=== PATIENT | female | born 1950 | race Caucasian/White ===

== ENCOUNTER 2017-02-18 13:47 | Emergency (ER) | payer OTHER ==
[~2017-02-18] VITALS: Ht 160 cm; Wt 96.5 kg
[~2017-02-18 13:47] MED LIST changes: -APIX1TAB3 PO; -LOSA1TAB PO; -OMEG10007 PO; -OMEP40CA41 PO; -RIVA1TAB4 PO
[2017-02-18 13:51] VITALS: TEMP 36.5; Ht 160 cm; Wt 96.5 kg
--- NOTE | 2017-02-18 14:47 | EMERGENCY ROOM VISIT NOTE ---
History First contact with patient: 14:39 Chief Complaint: LEG PAIN,LEG INJURY Stated Complaint: LEFT LEG PAIN, SWELLING-SENT FROM ULTRASOUND History of Present Illness The patient is a 67 year old female who presents to the Emergency Room with complaints of 2 day history of leg swelling,referred by PCP Dr. Rodas for confirmed DVT on U/S doppler Has chronic low leg pain but ~2 days ago, developed acute left leg pain felt anteriorly from knee down to the big toe. The pain woke her from sleep. Associated with swelling. No recent leg trauma, and patient is otherwise able to ambulate but she does not take stairs because of pain. No history of blood clots. No family history of cancer, only has family cardiac disease Never smoked, no estrogen use, no long commute, no recent surgery/prolonged immobilization SOB chronic (unsure of cause), not worsened recently. No CP. Some orthopnea, declines PND. No abdo pain, no N/V Does have some mylagia UTI sx: frequency, urgency, no dysuria, no hematuria No changes in BM No fever, known GERD Previously on Coumadin, transitioned to Xarelto (for unknown reason), tolerated it badly. Refuses to go back on Xarelto. Review of Systems See HPI for pertinent positives and negatives. A total of ten systems were reviewed and were otherwise negative. Past Medical/Surgical History Medical Problems: (1) Pulmonary hypertension Social History Smoking Status: Never Smoker Smokeless Tobacco Use: No Alcohol Use: none Drug Use: none Marital Status: Housing Status: lives with family Occupation Status: employed Current/Historical Medications Scheduled Aspirin (Aspirin), 325 MG PO DAILY Cholecalciferol (Vitamin D 1000 Unit), 1,000 INTER.UNIT PO DAILY Cyanocobalamin (Vitamin B-12), 1,000 MCG PO DAILY Diltiazem Hcl Ext Rel (Tiazac), 240 MG PO DAILY Fish Oil ([place]-3), 1 CAP PO DAILY Losartan Potassium (Losartan Potassium), 25 MG PO DAILY Rivaroxaban (Xarelto), 15 MG PO BID Miscellaneous Medications Hydrochlorothiazide (Hctz), 6.25 MG PO Physical Exam Vital Signs Date Time Temp Pulse Resp B/P (MAP) Pulse Ox O2 Delivery O2 Flow Rate FiO2 02/18/17 19:03 74 20 166/80 96 02/18/17 17:30 71 18 97/53 95 Room Air 8/8/17 15:44 65 15 147/85 97 Room Air 02/18/17 13:51 36.5 79 20 134/75 94 Physical Exam GENERAL: Alert, well nourished, lying in bed, no acute distress, non-toxic HEAD: NC/AT. No sinus tenderness. EYES: PERRL, EOMI, normal conjunctiva OROPHARYNX: no exudate, no erythema, lips, buccal mucosa, and tongue normal and mucous membranes are dry NECK: Supple, no nuchal rigidity, no adenopathy, non-tender LUNGS: Clear to auscultation, but poor inspiratory effort. No crepitations, crackles, or wheezes HEART:S1 and S2 normal, irregularly irregular, but rate controlled. CHEST: No reproducible tenderness. ABDOMEN: abdomen soft, non-tender, normo-active bowel sounds, no masses, no rebound or guarding. BACK: Back is symmetrical on inspection, no deformities, no midline tenderness, no CVA tenderness. SKIN: Warm, pink, dry. No erythema, rashes, or bruising. UPPER EXTREMITIES: Grossly normal. Strength 5/5 LOWER EXTREMITIES: No pitting edema. Tender leg on left diffusely. Strength 5/5 bilaterally. NEURO: Alert, Ox3. No focal deficits. Normal sensorium, cranial nerves II-XII grossly intact, normal speech. PSYCH: Mood and affect appropriate. Medical Decision & Procedures ER Provider Diagnostic Interpretation: ULTRASOUND LEFT VENOUS DOPP LOWER EXT UNILAT CLINICAL HISTORY: Left leg pain and swelling COMPARISON STUDY: No previous studies for comparison. FINDINGS: There is extensive left lower extremity acute deep venous thrombus extending from the proximal femoral vein through the popliteal vein. The common femoral vein appear patent. The calf veins were not well assessed. IMPRESSION: Extensive left lower extremity DVT extending from the proximal superficial femoral vein through the popliteal vein. (CHEST FOR PE) ANGIO WITH CT DOSE: 476.90 mGycm HISTORY: Chest pain dyspnea TECHNIQUE: Multiaxial CT images of the chest were performed following the intravenous administration of contrast to evaluate the pulmonary arteries. Maximal intensity projection images were also obtained. A dose lowering technique was utilized adhering to the principles of ALARA. COMPARISON STUDY: 09/03/2012 FINDINGS: Findings consistent with multiple bilateral pulmonary emboli. There is involvement of the distal right as well as distal left main pulmonary arteries. Extensive involvement of the right upper as well as right lower lobe pulmonary arterial vasculature is present. Less prominent involvement of the left lower lobe and left upper lobe pulmonary vasculature is noted. Moderate stable cardiomegaly. Interstitial prominence considered chronic in this patient. No evidence for a saddle or central embolus. IMPRESSION: 1. Findings consistent with extensive bilateral acute pulmonary emboli. 2. No evidence for a central or saddle embolus. 3. Chronic parenchymal change. 4. Cardiomegaly Laboratory Results 02/18/17 15:00 Red Blood Count 4.65, Mean Corpuscular Volume 92.9, Mean Corpuscular Hemoglobin 31.4, Mean Corpuscular Hemoglobin Concent 33.8, Mean Platelet Volume 10.4, Neutrophils (%) (Auto) 68.1, Lymphocytes (%) (Auto) 21.1, Monocytes (%) (Auto) 8.8, Eosinophils (%) (Auto) 1.4, Basophils (%) (Auto) 0.4, Neutrophils # (Auto) 7.70, Lymphocytes # (Auto) 2.38, Monocytes # (Auto) 0.99, Eosinophils # (Auto) 0.16, Basophils # (Auto) 0.04 02/18/17 15:00 Test 02/18/17 15:00 02/18/17 15:32 White Blood Count 11.29 K/uL (4.8-10.8) Red Blood Count 4.65 M/uL (4.2-5.4) Hemoglobin 14.6 g/dL (12.0-16.0) Hematocrit 43.2 % (37-47) Mean Corpuscular Volume 92.9 fL (80-100) Mean Corpuscular Hemoglobin 31.4 pg (25-34) Mean Corpuscular Hemoglobin Concent 33.8 g/dl (32-36) Platelet Count 209 K/uL (130-400) Mean Platelet Volume 10.4 fL (7.4-10.4) Neutrophils (%) (Auto) 68.1 % Lymphocytes (%) (Auto) 21.1 % Monocytes (%) (Auto) 8.8 % Eosinophils (%) (Auto) 1.4 % Basophils (%) (Auto) 0.4 % Neutrophils # (Auto) 7.70 K/uL (1.4-6.5) Lymphocytes # (Auto) 2.38 K/uL (1.2-3.4) Monocytes # (Auto) 0.99 K/uL (0.11-0.59) Eosinophils # (Auto) 0.16 K/uL (0-0.5) Basophils # (Auto) 0.04 K/uL (0-0.2) RDW Standard Deviation 46.5 fL (36.4-46.3) RDW Coefficient of Variation 13.7 % (11.5-14.5) Immature Granulocyte % (Auto) 0.2 % Immature Granulocyte # (Auto) 0.02 K/uL (0.00-0.02) Prothrombin Time 11.0 SECONDS (9.0-12.0) Prothromb Time International Ratio 1.0 (0.9-1.1) Activated Partial Thromboplast Time 26.4 SECONDS (21.0-31.0) Partial Thromboplastin Ratio 1.0 Est Creatinine Clear Calc Drug Dose 48.9 ml/min Estimated GFR () 53.4 Estimated GFR (Non- 46.1 BUN/Creatinine Ratio 22.3 (10-20) Calcium Level 9.2 mg/dl (8.5-10.1) Total Bilirubin 0.5 mg/dl (0.2-1) Aspartate Amino Transf (AST/SGOT) 15 U/L (15-37) Alanine Aminotransferase (ALT/SGPT) 20 U/L (12-78) Alkaline Phosphatase 118 U/L (45-117) Troponin I < 0.015 ng/ml (0-0.045) Total Protein 7.6 gm/dl (6.4-8.2) Albumin 3.2 gm/dl (3.4-5.0) Globulin 4.4 gm/dl (2.5-4.0) Albumin/Globulin Ratio 0.7 (0.9-2) Bedside Hemoglobin 15.0 g/dl (12.0-16.0) Bedside Hematocrit 44 % (37-47) Bedside Sodium 138 mEq/L (135-144) Bedside Potassium 3.5 mEq/L (3.3-5.0) Bedside Chloride 99 mEq/L (101-112) Bedside Total CO2 27 mEq/l (24-31) Anion Gap 17.0 mmol/L (16-25) Bedside Blood Urea Nitrogen 28 mg/dl (7-18) Bedside Creatinine 1.3 mg/dl (0.6-1.3) Bedside Glucose (other) 95 mg/dl (70-99) Bedside Ionized Calcium (Jane) 1.14 mmol/l (1.12-1.32) Medications Administered Medications (Trade) Dose Ordered Sig/Enedelia Route Start Time Stop Time Status Last Admin Dose Admin Sodium Chloride 500 ml @ 999 mls/hr Q31M STAT IV 02/18/17 16:31 02/18/17 17:01 DC 02/18/17 16:31 999 MLS/HR Rivaroxaban (Xarelto Tab) 15 mg NOW STAT PO 02/18/17 18:34 02/18/17 18:35 DC 02/18/17 18:56 15 MG ECG Indication: SOB/dyspnea Rate (beats per minute): 68 Rhythm: atrial fibrillation Findings: PVC, other (low QRS voltage) Comparison ECG Date: Compared to EKG of 04-SEP-2012, nonspecific T wave abnormality no longer evident in Lateral leads and QT has shortened Change: no significant change ED Course 1447: The patient was evaluated in room C12. A complete history and physical exam was performed. 1517: Labs and diagnostics ordered 1631: Patient reassessed, feeling relatively comfortable, except ongoing leg pain. Vitals noted to be stable. Declined analgesia. Updated of results. 1640: Consulted [facility] hospitalist, Dr. Langley, who said patient was stable for discharge with management at home. 1700: field service manager informed to help organize for meds, AC clinic referral and follow up with Dr. Rodas on Friday Medical Decision Prior records/ancillary studies reviewed. Triage Nursing notes reviewed. Additional history obtained from the family. The patient's history was concerning for respiratory difficulties on background of newly discovered DVT. Differential diagnosis: Etiologies such as infections, reactive airway disease, pneumonia, pneumothorax , COPD, CHF, cardiac ischemia, pulmonary embolism, musculoskeletal, gastrointestinal, as well as others were entertained. Physical examination: As above. ER treatment provided: NSS bolus On reassessment the patient felt better. Diagnostic interpretation by me: The electrocardiogram was negative for acute ischemic or pathologic change. The labs revealed borderline leukocytosis, evidence of dehydration, negative troponin. Imaging studies: Bilateral peripheral PEs. No central or saddle embolus. Consultation: By the evaluation outlined above emergent etiologies such as CHF, cardiac ischemia, reactive airway disease, pneumonia, pneumothorax, musculoskeletal, serious bacterial infections, as well as others were deemed relatively unlikely. A consultation was placed with the [facility] hospitalist. The case was discussed and diagnostics were reviewed. The patient was not a candidate for further evaluation in the ER for further treatment. The patient and her were informed about the findings as listed above. All questions were answered and they were pleased with the treatment and management plans. Return instructions were outlined and the patient was discharged in stable condition. Outpatient prescription management: Xarelto Referral: The patient was referred back to their primary care physician for follow-up in 2 to 3 days for a recheck of the current condition.family, as well as a referral to anticoagulation clinic Impression Primary Impression: Pulmonary emboli Additional Impression: DVT (deep venous thrombosis) Departure Information Dispostion Home / Self-Care Condition FAIR Prescriptions Rivaroxaban (XARELTO) 20 Mg Tab 15 MG PO BID for 21 Days, #42 TAB Prov: Alka. Flores MD 02/18/17 Referrals Suraj Washington M.D. (PCP) Patient Instructions My [facility] Resident Tracking Resident Involvement: Resident Care Provided Care Provided: Adult ED Problem Qualifiers
[2017-02-18 15:28] LABS: BASO % 0.4 %; BASO ABS # 0.04 K/uL (0-0.2); COMPLETE YES; EOS % 1.4 %; HEMATOCRIT 43.2 % (37-47); IG% 0.2 %; LYMPH % 21.1 %; LYMPH ABS # 2.38 K/uL (1.2-3.4); MEAN CELL VOLUME 92.9 fL (80-100); MEAN CORPUSCULAR HEMOGLOBIN 31.4 pg (25-34); MEAN CORPUSCULAR HGB CONC 33.8 g/dl (32-36); MEAN PLATELET VOLUME 10.4 fL (7.4-10.4); MONO % 8.8 %; NEUT % 68.1 %; PLATELET COUNT 209 K/uL (130-400); RED BLOOD COUNT 4.65 M/uL (4.2-5.4); WHITE BLOOD COUNT 11.29 K/uL (4.8-10.8)
[2017-02-18] MEDS ORDERED: OPTIRAY 320 IV PRN (15:30)
[2017-02-18 15:37] LABS: ALT/SGPT 20 U/L (12-78); AST/SGOT 15 U/L (15-37); BLOOD UREA NITROGEN 27 mg/dl (7-18); BUN/CREATININE RATIO 22.3 (10-20); CALCIUM 9.2 mg/dl (8.5-10.1); CARBON DIOXIDE 32 mmol/L (21-32); CHLORIDE 103 mmol/L (98-107); GLUCOSE 101 mg/dl (70-99); POTASSIUM 3.7 mmol/L (3.5-5.1); SODIUM 140 mmol/L (136-145)
[2017-02-18 15:41] LABS: ALB/GLOB RATIO 0.7 (0.9-2); ALKALINE PHOSPHATASE 118 U/L (45-117)
[2017-02-18 15:43] LABS: ISTAT CREATININE 1.3 mg/dl (0.6-1.3); ISTAT IONIZED CALCIUM 1.14 mmol/l (1.12-1.32)
--- NOTE | 2017-02-18 16:25 | DIAGNOSTIC IMAGING REPORT ---
(CHEST FOR PE) ANGIO WITH CT DOSE: 476.90 mGycm HISTORY: Chest pain dyspnea TECHNIQUE: Multiaxial CT images of the chest were performed following the intravenous administration of contrast to evaluate the pulmonary arteries. Maximal intensity projection images were also obtained. A dose lowering technique was utilized adhering to the principles of ALARA. COMPARISON STUDY: 09/03/2012 FINDINGS: Findings consistent with multiple bilateral pulmonary emboli. There is involvement of the distal right as well as distal left main pulmonary arteries. Extensive involvement of the right upper as well as right lower lobe pulmonary arterial vasculature is present. Less prominent involvement of the left lower lobe and left upper lobe pulmonary vasculature is noted. Moderate stable cardiomegaly. Interstitial prominence considered chronic in this patient. No evidence for a saddle or central embolus. IMPRESSION: 1. Findings consistent with extensive bilateral acute pulmonary emboli. 2. No evidence for a central or saddle embolus. 3. Chronic parenchymal change. 4. Cardiomegaly The above report was generated using voice recognition software. It may contain grammatical, syntax or spelling errors. Electronically signed by: Guillermo Edgar M.D. 02/18/2017 4:23 PM Dictated Date/Time: 02/18/2017 4:21 PM
[2017-02-18] MEDS ORDERED: SODIUM CHLORIDE 0.9% 500ML 500 ML IV STA (16:31)
--- NOTE | 2017-02-18 17:00 | EMERGENCY ROOM VISIT NOTE ---
History Report prepared by Callum: Bruce Silveira Under the Supervision of: Dr. Omar Candelaria M.D. First contact with patient: 14:39 Chief Complaint: LEG PAIN,LEG INJURY Stated Complaint: LEFT LEG PAIN, SWELLING-SENT FROM ULTRASOUND History of Present Illness The patient is a 67 year old female who presents to the Emergency Room with complaints of 2 day history of worsening leg swelling,referred by PCP Dr. Rodas for confirmed DVT on U/S doppler Has chronic low leg pain. About 2 days ago, started at the knee and spread down the leg. Pain woke her from sleep. Pain anteriorly from knee down to the big toe. Swelling started yesterday. Able to ambulate. Does not take stairs because of pain. No history of blood clots.no family history of cancer, only has family cardiac disease no recent leg trauma Never smoked, no estrogen use, no long commute, no recent surgery/prolonged immobilization SOB chronic (unsure of cause), not worsened recently. No CP. Some orthopnea, decline PND. No abdo pain, no N/V Does have some mylagia ?cold UTI sx: frequency, urgency, no dysuria, no hematuria No changes in BM No fever, known GERD Source of History: patient Onset: Two days ago Position: leg (bilateral) Quality: other (swelling) Timing: worsening Associated Symptoms: + SOB, No chest pain, No nausea, No vomiting, No abdominal pain Review of Systems See HPI for pertinent positives & negatives. A total of 10 systems reviewed and were otherwise negative. Past Medical & Surgical Medical Problems: (1) Pulmonary hypertension Family History No pertinent family history stated. Social History Smoking Status: Never Smoker Alcohol Use: none Drug Use: none Marital Status: Housing Status: lives with family Occupation Status: employed Current/Historical Medications Scheduled Aspirin (Aspirin), 325 MG PO DAILY Cholecalciferol (Vitamin D 1000 Unit), 1,000 INTER.UNIT PO DAILY Cyanocobalamin (Vitamin B-12), 1,000 MCG PO DAILY Diltiazem Hcl Ext Rel (Tiazac), 240 MG PO DAILY Fish Oil ([place]-3), 1 CAP PO DAILY Losartan Potassium (Losartan Potassium), 25 MG PO DAILY Rivaroxaban (Xarelto), 15 MG PO BID Miscellaneous Medications Hydrochlorothiazide (Hctz), 6.25 MG PO Allergies Coded Allergies: No Known Allergies (Unverified , 8/8/17) Physical Exam Vital Signs Date Time Temp Pulse Resp B/P (MAP) Pulse Ox O2 Delivery O2 Flow Rate FiO2 02/18/17 19:03 74 20 166/80 96 02/18/17 17:30 71 18 97/53 95 Room Air 02/18/17 15:44 65 15 147/85 97 Room Air 02/18/17 13:51 36.5 79 20 134/75 94 Physical Exam GENERAL: Patient is a healthy-appearing well-nourished [] HEAD: Normocephalic atraumatic EYES: Ocular movements intact pupils equal and react to light OROPHARYNX mucous membranes are moist no exudates present no erythema or edema present NECK: Supple no nuchal rigidity CHEST: Good equal expansion LUNGS: Clear and equal to auscultation CARDIAC: Normal S1 and S2 ABDOMEN: Soft nontender no guarding BACK: No CVA tenderness EXTREMITIES: No pain upon palpation normal muscle strength in all groups no clubbing cyanosis or edema NEURO: Patient is following commands and answering questions appropriately. Alert and oriented x3 Cranial Nerves 2-12 grossly intact Medical Decision & Procedures ER Provider Diagnostic Interpretation: Radiology results as stated below per my review and radiologist interpretation: (CHEST FOR PE) ANGIO WITH FINDINGS: Findings consistent with multiple bilateral pulmonary emboli. There is involvement of the distal right as well as distal left main pulmonary arteries. Extensive involvement of the right upper as well as right lower lobe pulmonary arterial vasculature is present. Less prominent involvement of the left lower lobe and left upper lobe pulmonary vasculature is noted. Moderate stable cardiomegaly. Interstitial prominence considered chronic in this patient. No evidence for a saddle or central embolus. IMPRESSION: 1. Findings consistent with extensive bilateral acute pulmonary emboli. 2. No evidence for a central or saddle embolus. 3. Chronic parenchymal change. 4. Cardiomegaly The above report was generated using voice recognition software. It may contain grammatical, syntax or spelling errors. Electronically signed by: Guillermo Edgar M.D. Laboratory Results 02/18/17 15:00 Red Blood Count 4.65, Mean Corpuscular Volume 92.9, Mean Corpuscular Hemoglobin 31.4, Mean Corpuscular Hemoglobin Concent 33.8, Mean Platelet Volume 10.4, Neutrophils (%) (Auto) 68.1, Lymphocytes (%) (Auto) 21.1, Monocytes (%) (Auto) 8.8, Eosinophils (%) (Auto) 1.4, Basophils (%) (Auto) 0.4, Neutrophils # (Auto) 7.70, Lymphocytes # (Auto) 2.38, Monocytes # (Auto) 0.99, Eosinophils # (Auto) 0.16, Basophils # (Auto) 0.04 02/18/17 15:00 Test 02/18/17 15:00 02/18/17 15:32 White Blood Count 11.29 K/uL (4.8-10.8) Red Blood Count 4.65 M/uL (4.2-5.4) Hemoglobin 14.6 g/dL (12.0-16.0) Hematocrit 43.2 % (37-47) Mean Corpuscular Volume 92.9 fL (80-100) Mean Corpuscular Hemoglobin 31.4 pg (25-34) Mean Corpuscular Hemoglobin Concent 33.8 g/dl (32-36) Platelet Count 209 K/uL (130-400) Mean Platelet Volume 10.4 fL (7.4-10.4) Neutrophils (%) (Auto) 68.1 % Lymphocytes (%) (Auto) 21.1 % Monocytes (%) (Auto) 8.8 % Eosinophils (%) (Auto) 1.4 % Basophils (%) (Auto) 0.4 % Neutrophils # (Auto) 7.70 K/uL (1.4-6.5) Lymphocytes # (Auto) 2.38 K/uL (1.2-3.4) Monocytes # (Auto) 0.99 K/uL (0.11-0.59) Eosinophils # (Auto) 0.16 K/uL (0-0.5) Basophils # (Auto) 0.04 K/uL (0-0.2) RDW Standard Deviation 46.5 fL (36.4-46.3) RDW Coefficient of Variation 13.7 % (11.5-14.5) Immature Granulocyte % (Auto) 0.2 % Immature Granulocyte # (Auto) 0.02 K/uL (0.00-0.02) Prothrombin Time 11.0 SECONDS (9.0-12.0) Prothromb Time International Ratio 1.0 (0.9-1.1) Activated Partial Thromboplast Time 26.4 SECONDS (21.0-31.0) Partial Thromboplastin Ratio 1.0 Est Creatinine Clear Calc Drug Dose 48.9 ml/min Estimated GFR () 53.4 Estimated GFR (Non- 46.1 BUN/Creatinine Ratio 22.3 (10-20) Calcium Level 9.2 mg/dl (8.5-10.1) Total Bilirubin 0.5 mg/dl (0.2-1) Aspartate Amino Transf (AST/SGOT) 15 U/L (15-37) Alanine Aminotransferase (ALT/SGPT) 20 U/L (12-78) Alkaline Phosphatase 118 U/L (45-117) Troponin I < 0.015 ng/ml (0-0.045) Total Protein 7.6 gm/dl (6.4-8.2) Albumin 3.2 gm/dl (3.4-5.0) Globulin 4.4 gm/dl (2.5-4.0) Albumin/Globulin Ratio 0.7 (0.9-2) Bedside Hemoglobin 15.0 g/dl (12.0-16.0) Bedside Hematocrit 44 % (37-47) Bedside Sodium 138 mEq/L (135-144) Bedside Potassium 3.5 mEq/L (3.3-5.0) Bedside Chloride 99 mEq/L (101-112) Bedside Total CO2 27 mEq/l (24-31) Anion Gap 17.0 mmol/L (16-25) Bedside Blood Urea Nitrogen 28 mg/dl (7-18) Bedside Creatinine 1.3 mg/dl (0.6-1.3) Bedside Glucose (other) 95 mg/dl (70-99) Bedside Ionized Calcium (Jane) 1.14 mmol/l (1.12-1.32) Labs reviewed by ED physician. Medications Administered Medications (Trade) Dose Ordered Sig/Enedelia Route Start Time Stop Time Status Last Admin Dose Admin Sodium Chloride 500 ml @ 999 mls/hr Q31M STAT IV 02/18/17 16:31 02/18/17 17:01 DC 02/18/17 16:31 999 MLS/HR Rivaroxaban (Xarelto Tab) 15 mg NOW STAT PO 02/18/17 18:34 02/18/17 18:35 DC 02/18/17 18:56 15 MG ECG Indication: other (Leg swelling and pain) Rate (beats per minute): 68 Rhythm: atrial fibrillation Findings: no acute ischemic change ED Course 1528: Past medical records reviewed. The patient was evaluated in room C11B. A complete history and physical examination was performed. 1610: Upon reassessment with patient she stated she knew about her atrial fibrillation. She stated that she was previously on Xarelto and Lovenox but she refuses to take either because they "almost killed her". She agrees to use of blood thinners but not IM blood thinners or Xarelto. 1631: Ordered Sodium Chloride 500 ml @ 999 mls/hr IV. 1700: Upon reexamination the patient is resting comfortably. I discussed results and treatment plan with the patient. She verbalizes agreement and understanding. I spoke with Dr. Langley from the [facility], but he declines admission. 1745: Upon reexamination the patient is resting comfortable. I discussed results and treatment plan with the patient. She verbalizes agreement and understanding. The patient is ready for discharge. Medical Decision Differential diagnosis: Etiologies such as DVT, musculoskeletal, infection, joint effusion, trauma, lymphedema, idiopathic, CHF, as well as others were entertained. Resident Physician Supervision Note: I interviewed and examined the patient. Discussed with Dr. Flores and agree with findings and plan as documented in the note. Documented By: Omar Candelaria Consults Time Called: 1643 Consulting Physician: Dr. Langley -[facility] Returned Call: 1700 I discussed the patient's case with Dr. Langley, he has refused to see the patient. Impression Primary Impression: A-fib Additional Impression: Pulmonary embolism, bilateral Scribe Attestation The scribe's documentation has been prepared under my direction and personally reviewed by me in its entirety. I confirm that the note above accurately reflects all work, treatment, procedures, and medical decision making performed by me. Departure Information Dispostion Home / Self-Care Prescriptions Rivaroxaban (XARELTO) 20 Mg Tab 15 MG PO BID for 21 Days, #42 TAB Prov: Alka. Flores MD 02/18/17 Referrals Suraj Washington M.D. (PCP) Forms HOME CARE DOCUMENTATION FORM, IMPORTANT VISIT INFORMATION Patient Instructions DVT Dc, Embolism Pulmonary Dc, My [facility] Additional Instructions You were seen in the ED today for a clot in your leg. Further assessment showed clots in the peripheries of both lungs as well. Your vitals were noted to be otherwises stable. Lab work done showed mildly elevated WBC and evidence of dehydration. Upon discharge, you will be started on an anticoagulant blood thinner, that you will need to take TWICE DAILY, ideally at the same times every day. The dose will be higher for the first 7 days, and then changed thereafter, to be continued for life. You will be seen by Dr. Rodas who will discuss the dose change later this week. In addtion, you will be referred to the anticoagulation clinic so that you will have mcc managment care. You have been examined and treated today on an emergency basis only. This is not a substitute for, or an effort to provide, complete comprehensive medical care. It is impossible to recognize and treat all injuries or illnesses in a single emergency department visit. It is therefore important that you follow up with your physician for close monitoring. Return to the ER immediately for worsening or persistent dizziness, vomiting, headache, fevers, chest pains, difficulty breathing, black or bloody stools, slurred speech, numbness, weakness, visual changes, worsening of your condition , or as needed. Problem Qualifiers Primary Impression: A-fib Atrial fibrillation type: unspecified Qualified Codes: I48.91 - Unspecified atrial fibrillation
[2017-02-18] MEDS ORDERED: RIVAROXABAN TAB 15 MG TAB PO STA (18:34)
[2017-02-18] MEDS ORDERED: RIVA1TAB4 PO (18:40)
[2017-02-18 19:03] VITALS: BP 166/80; PULSE 74; O2SAT 96
[2017-03-11] MEDS ORDERED: APIX1TAB3 PO (11:31)
== END 2017-02-18 19:07 | disposition home or self-care (01) ==
LOC: C.EDB 13:51 → C.EDC 19:07
DX: I48.91 Unspecified atrial fibrillation (principal); I26.99 Other pulmonary embolism without acute cor pulmonale; I10 Essential (primary) hypertension; Z79.82 Long term (current) use of aspirin; M79.605 Pain in left leg; I82.412 Acute embolism and thrombosis of left femoral vein; I82.432 Acute embolism and thrombosis of left popliteal vein

== ENCOUNTER → 2017-02-18 | Outpatient (CLI) | payer OTHER ==
[~2017-02-18] MED LIST: APIX1TAB3 PO; ASPI325T45 PO; CHOL100027 PO; CYAN10005 PO; CZR50 PO; DILT-115 PO; FISHOIL PO; HYDR12.56 PO; LOSA1TAB PO; OMEG10007 PO; OMEP40CA41 PO; RIVA1TAB4 PO
--- NOTE | 2017-02-18 13:35 | DIAGNOSTIC IMAGING REPORT ---
ULTRASOUND LEFT VENOUS DOPP LOWER EXT UNILAT CLINICAL HISTORY: Left leg pain and swelling COMPARISON STUDY: No previous studies for comparison. FINDINGS: There is extensive left lower extremity acute deep venous thrombus extending from the proximal femoral vein through the popliteal vein. The common femoral vein appear patent. The calf veins were not well assessed. IMPRESSION: Extensive left lower extremity DVT extending from the proximal superficial femoral vein through the popliteal vein. Electronically signed by: Jose Moran M.D. 02/18/2017 1:33 PM Dictated Date/Time: 02/18/2017 1:31 PM
== END | disposition home or self-care (01) ==
LOC: C.ULTR 12:53
PROVIDERS: ATTEND Student in an Organized Health Care Education/Training Program
DX: M79.605 Pain in left leg (principal); I82.412 Acute embolism and thrombosis of left femoral vein; I82.432 Acute embolism and thrombosis of left popliteal vein

== ENCOUNTER 2017-03-17 02:26 | Emergency (ER) | payer OTHER ==
[~2017-03-17] VITALS: Ht 157.5 cm; Wt 95.6 kg
[~2017-03-17 02:26] MED LIST changes: +APIX1TAB3 PO; -ASPI325T45 PO
[2017-03-17 02:32] VITALS: TEMP 36.4; Ht 157.5 cm; Wt 95.6 kg
--- NOTE | 2017-03-17 03:09 | EMERGENCY ROOM VISIT NOTE ---
History Report prepared by Callum: Georgia Warren Under the Supervision of: Dr. Aysha Yepez D.O. First contact with patient: 02:52 Chief Complaint: OTHER COMPLAINT Stated Complaint: POSS. REACTION TO BLOOD THINNERS; DIZZY, CP, BLOAT History of Present Illness The patient is a 67 year old female who presents to the Emergency Room with complaints of constant left sided chest pain under her left breast and generalized illness that she believes to be a reaction to her change in blood thinner medication. The patient was recently diagnosed with a DVT in her left leg as well as PEs. The patient was originally on Xarel but this was changed to Eliquis on 02/19/17. She notes bloating, pain in legs, dizziness, shortness of breath and blurry vision. The patient notes that she has had felt more dizzy recently. The patient has a history of COPD, GERD, and congestive heart failure. The patient describes previous similar reactions to different blood thinners. Source of History: patient Position: chest (left) Timing: constant Associated Symptoms: + SOB Note: Pt notes dizziness, leg pain, blurry vision, and bloating Review of Systems See HPI for pertinent positives & negatives. A total of 10 systems reviewed and were otherwise negative. Past Medical & Surgical Medical Problems: (1) CHF (congestive heart failure) (2) COPD (chronic obstructive pulmonary disease) (3) DVT (deep venous thrombosis) (4) GERD (gastroesophageal reflux disease) (5) HTN (hypertension) (6) HTN (hypertension) (7) Pulmonary emboli (8) Pulmonary hypertension Family History Heart disease Hypertension Social History Smoking Status: Never Smoker Smokeless Tobacco Use: No Alcohol Use: none Drug Use: none Marital Status: Housing Status: lives with family Occupation Status: employed Current/Historical Medications Scheduled Apixaban (Eliquis), 5 MG PO BID Cholecalciferol (Vitamin D 1000 Unit), 1,000 INTER.UNIT PO DAILY Cyanocobalamin (Vitamin B-12), 1,000 MCG PO DAILY Diltiazem Hcl Ext Rel (Tiazac), 240 MG PO DAILY Fish Oil ([place]-3), 1 CAP PO DAILY Hydrochlorothiazide (Hctz), 12.5 MG PO DAILY Losartan Potassium (Cozaar), 25 MG PO DAILY Omeprazole (Prilosec), 40 MG PO DAILY Allergies Coded Allergies: Rivaroxaban (Unverified Adverse Reaction, Mild, stomach upset, 03/17/17) in combination with other meds; unsure of onset Physical Exam Vital Signs Date Time Temp Pulse Resp B/P (MAP) Pulse Ox O2 Delivery O2 Flow Rate FiO2 03/17/17 04:57 80 20 127/59 97 Room Air 03/17/17 04:46 87 22 97 03/17/17 04:40 127/59 03/17/17 04:32 03/17/17 04:31 73 15 03/17/17 04:16 75 30 95 03/17/17 04:01 69 20 142/77 96 03/17/17 03:46 78 19 97 03/17/17 03:31 77 22 126/72 97 03/17/17 03:26 79 16 96 Room Air 03/17/17 03:15 106/65 03/17/17 03:11 78 18 98 03/17/17 03:01 88 03/17/17 02:56 78 20 96 03/17/17 02:32 36.4 104 18 134/82 94 Room Air Physical Exam HEENT: Head - normocephalic and atraumatic Pupils are equal, round, and reactive to light. Extraocular eye muscles are intact, and sclera are anicteric. Nose - moist nasal mucosa without discharge. Mouth - moist buccal mucosa. Oropharynx is nonerythematous and there is no tonsillar exudate or edema noted. Neck: Supple; no JVD, nuchal rigidity, cervical lymphadenopathy, or auscultated bruits. Heart: Irregularly irregular rhythm. There is a normal S1 and S2 with no murmurs, clicks, or gallops appreciated. Lungs: Clear to auscultation bilaterally with no wheezes, rales, or rhonchi. Chest: Some reproducible pain under left breast Abdomen: Soft, LLQ pain, nondistended, with good bowel sounds. There are no palpable pulsatile masses or hepatosplenomegaly. There is no guarding, rigidity , or rebound noted. Extremities: No evidence of cyanosis, clubbing, or edema. There are easily palpable peripheral pulses. Skin: warm and dry with good turgor and no rashes. Medical Decision & Procedures ER Provider Diagnostic Interpretation: Radiology results as stated below per my review and the radiologist's interpretation: Chest X-Ray: Cardiomegaly. Left side pleural effusion unchanged from 2013. Laboratory Results 03/17/17 02:45 Red Blood Count 4.42, Mean Corpuscular Volume 92.8, Mean Corpuscular Hemoglobin 31.0, Mean Corpuscular Hemoglobin Concent 33.4, Mean Platelet Volume 10.5, Neutrophils (%) (Auto) 59.9, Lymphocytes (%) (Auto) 28.7, Monocytes (%) (Auto) 9.2, Eosinophils (%) (Auto) 1.7, Basophils (%) (Auto) 0.3, Neutrophils # (Auto) 5.29, Lymphocytes # (Auto) 2.53, Monocytes # (Auto) 0.81, Eosinophils # (Auto) 0.15, Basophils # (Auto) 0.03 03/17/17 02:45 Test 03/17/17 02:45 White Blood Count 8.83 K/uL (4.8-10.8) Red Blood Count 4.42 M/uL (4.2-5.4) Hemoglobin 13.7 g/dL (12.0-16.0) Hematocrit 41.0 % (37-47) Mean Corpuscular Volume 92.8 fL (80-100) Mean Corpuscular Hemoglobin 31.0 pg (25-34) Mean Corpuscular Hemoglobin Concent 33.4 g/dl (32-36) Platelet Count 238 K/uL (130-400) Mean Platelet Volume 10.5 fL (7.4-10.4) Neutrophils (%) (Auto) 59.9 % Lymphocytes (%) (Auto) 28.7 % Monocytes (%) (Auto) 9.2 % Eosinophils (%) (Auto) 1.7 % Basophils (%) (Auto) 0.3 % Neutrophils # (Auto) 5.29 K/uL (1.4-6.5) Lymphocytes # (Auto) 2.53 K/uL (1.2-3.4) Monocytes # (Auto) 0.81 K/uL (0.11-0.59) Eosinophils # (Auto) 0.15 K/uL (0-0.5) Basophils # (Auto) 0.03 K/uL (0-0.2) RDW Standard Deviation 45.8 fL (36.4-46.3) RDW Coefficient of Variation 13.5 % (11.5-14.5) Immature Granulocyte % (Auto) 0.2 % Immature Granulocyte # (Auto) 0.02 K/uL (0.00-0.02) Anion Gap 6.0 mmol/L (3-11) Est Creatinine Clear Calc Drug Dose 47.7 ml/min Estimated GFR () 53.4 Estimated GFR (Non- 46.1 BUN/Creatinine Ratio 15.9 (10-20) Calcium Level 9.0 mg/dl (8.5-10.1) Total Bilirubin 0.6 mg/dl (0.2-1) Direct Bilirubin 0.1 mg/dl (0-0.2) Aspartate Amino Transf (AST/SGOT) 15 U/L (15-37) Alanine Aminotransferase (ALT/SGPT) 18 U/L (12-78) Alkaline Phosphatase 93 U/L (45-117) Total Creatine Kinase 60 U/L (26-192) Creatine Kinase MB 0.9 ng/ml (0.5-3.6) Creatine Kinase MB Ratio 1.5 (0-3.0) Troponin I < 0.015 ng/ml (0-0.045) Pro-B-Type Natriuretic Peptide 1503 pg/ml (0-900) Total Protein 7.5 gm/dl (6.4-8.2) Albumin 3.2 gm/dl (3.4-5.0) Laboratory results per my review. ECG Indication: other Rate (beats per minute): 92 Rhythm: atrial fibrillation Findings: PVC, no acute ischemic change ED Course 0257: Past medical records reviewed. The patient was evaluated in room B12B. A complete history and physical exam was performed. A twelve-lead EKG was obtained as described above. The patient was observing the council member and pulse oximeter. She had a chest x-ray as described above. 0350: I rechecked on the patient she notes that she was previously diagnosed with atrial fibrillation and did not go on blood thinners following that diagnosis. 0445: Upon reevaluation, resting comfortably. I discussed findings and results with the patient. She verbalized agreement of the treatment plan. The patient was discharged home. Medical Decision The patient is a 67 year old female who presents to the Emergency Room with complaints of constant left sided chest pain under her left breast and generalized illness that she believes to be a reaction to her change in blood thinner medication. Differential diagnosis includes cardiac ischemia, pleurisy, pulmonary embolus, DVT. Lab results show normal white count, stable H&H BUN 19, creatinine 1.2, normal glucose and LFT, negative cardiac enzymes, BNP 1503. The patient presents with a multitude of symptoms including some discomfort under her left breast and exertional shortness of breath. The left-sided chest discomfort was reproducible with palpation to the left chest wall. O2 saturations are stable. Chest x-ray does show some evidence of CHF. I've encouraged the patient to double her dose of HCTZ over the next couple of days. She already has an appointment scheduled with her PCP on Friday. Medication Reconcilliation Current Medication List: was personally reviewed by me Blood Pressure Screening Patient's blood pressure: Normal blood pressure Impression Primary Impression: CHF (congestive heart failure) Scribe Attestation The scribe's documentation has been prepared under my direction and personally reviewed by me in its entirety. I confirm that the note above accurately reflects all work, treatment, procedures, and medical decision making performed by me. Departure Information Dispostion Home / Self-Care Referrals Suraj Washington M.D. (PCP) Forms HOME CARE DOCUMENTATION FORM, IMPORTANT VISIT INFORMATION, WORK / SCHOOL INSTRUCTIONS Patient Instructions ED CHF General, My [facility] Additional Instructions Increases HCTZ to 25mg a day over next couple of days Keep your appointment on Friday with pcp return to the ER for worsening symptoms Problem Qualifiers Primary Impression: CHF (congestive heart failure) Congestive heart failure chronicity: acute on chronic
[2017-03-17 03:19] LABS: BASO % 0.3 %; BASO ABS # 0.03 K/uL (0-0.2); COMPLETE YES; EOS % 1.7 %; IG% 0.2 %; LYMPH % 28.7 %; LYMPH ABS # 2.53 K/uL (1.2-3.4); MEAN CELL VOLUME 92.8 fL (80-100); MEAN CORPUSCULAR HGB CONC 33.4 g/dl (32-36); MEAN PLATELET VOLUME 10.5 fL (7.4-10.4); MONO % 9.2 %; NEUT % 59.9 %; PLATELET COUNT 238 K/uL (130-400); RED BLOOD COUNT 4.42 M/uL (4.2-5.4); WHITE BLOOD COUNT 8.83 K/uL (4.8-10.8)
[2017-03-17 03:27] LABS: ALT/SGPT 18 U/L (12-78); AST/SGOT 15 U/L (15-37); BLOOD UREA NITROGEN 19 mg/dl (7-18); BUN/CREATININE RATIO 15.9 (10-20); CARBON DIOXIDE 30 mmol/L (21-32); CHLORIDE 103 mmol/L (98-107); GLUCOSE 101 mg/dl (70-99); POTASSIUM 3.2 mmol/L (3.5-5.1); SODIUM 139 mmol/L (136-145)
[2017-03-17 03:33] LABS: ALKALINE PHOSPHATASE 93 U/L (45-117); CKMB/CK RATIO 1.5 (0-3.0)
[2017-03-17] MEDS ORDERED: OMEG10007 PO (04:20)
[2017-03-17] MEDS ORDERED: LOSA1TAB PO (04:20)
[2017-03-17] MEDS ORDERED: OMEP40CA41 PO (04:21)
[2017-03-17 04:57] VITALS: BP 127/59; PULSE 80; O2SAT 97
--- NOTE | 2017-03-17 06:03 | DIAGNOSTIC IMAGING REPORT ---
CHEST ONE VIEW PORTABLE HISTORY: 67 years-old Female left chest pain/sob acute shortness of breath and dizziness with left-sided chest pain. Initial exam. COMPARISON: Chest radiograph 09/04/2012, CTA chest 02/18/2017 TECHNIQUE: Portable upright AP view of the chest FINDINGS: Cardiac silhouette is moderately enlarged, unchanged. Chronic blunting of left costophrenic angle is compatible with prominent epicardial fat pad and inferior segment lingula scarring, unchanged. No pneumothorax, large pleural effusion or focal airspace consolidation. Subsegmental right basilar atelectasis is noted. Vascular congestion is unchanged. Bones are grossly intact. IMPRESSION: 1. Cardiomegaly and mild pulmonary vascular congestion without overt pulmonary edema. 2. Chronic blunting of left costophrenic angle correlates with prominent epicardial fat pad and inferior segment lingular scarring. The above report was generated using voice recognition software. It may contain grammatical, syntax or spelling errors. Electronically signed by: Inocencio Greenberg M.D. 03/17/2017 6:01 AM Dictated Date/Time: 03/17/2017 5:59 AM
== END 2017-03-17 05:02 | disposition home or self-care (01) ==
LOC: C.EDB 02:28
DX: I11.0 Hypertensive heart disease with heart failure (principal); I50.9 Heart failure, unspecified; J44.9 Chronic obstructive pulmonary disease, unspecified; I27.2 Other secondary pulmonary hypertension; K21.9 Gastro-esophageal reflux disease without esophagitis; Z86.711 Personal history of pulmonary embolism; Z86.718 Personal history of other venous thrombosis and embolism; Z82.49 Family history of ischemic heart disease and other diseases of the circulatory system; Z79.01 Long term (current) use of anticoagulants; Z79.899 Other long term (current) drug therapy

== ENCOUNTER 2018-10-13 08:39 | Observation (INO) ==
[2018-10-13 09:07] LABS: Basophils # (auto) 0.04 K/uL (0-0.2); Basophils % (auto) 0.5 %; Eosinophils % (auto) 1.3 %; Hemoglobin 14.3 g/dL (12.0-16.0); Lymphocytes # (auto) 2.34 K/uL (1.2-3.4); Mean Corpuscular Hgb Conc 33.3 g/dL (32-36); Mean Corpuscular Volume 93.3 fL (80-100); Mean Platelet Volume 10.1 fL (7.4-10.4); Monocytes # (auto) 0.66 K/uL (0.11-0.59); Monocytes % (auto) 8.7 %; Neutrophils # (auto) 4.42 K/uL (1.4-6.5); Neutrophils % (auto) 58.5 %; Platelet Count 229 K/uL (130-400); RDW Coefficient of Variation 13.7 % (11.5-14.5); RDW Standard Deviation 46.8 fL (36.4-46.3); Red Blood Count 4.61 M/uL (4.2-5.4); White Blood Count 7.56 K/uL (4.8-10.8)
--- NOTE | 2018-10-13 09:11 | XRay Report ---
XR chest 1V portable CLINICAL HISTORY: Chest Pain COMPARISON STUDY: Chest radiograph March 17, 2017. FINDINGS: Lung volumes are normal. Opacity along the left heart border reflects epicardial fat pad. M oderate cardiomegaly is unchanged. There is no evidence for pulmonary edema. There is no pneumothorax or pleural effusion. IMPRESSION: No acute cardiopulmonary findings. Stable cardiomegaly. Electronically signed by: Joby Quintanilla M.D. 10/13/2018 9:09 AM
[2018-10-13 09:19] LABS: Base Excess VBG 3.7 mEq/L; Oxygen Saturation VBG 73.5 %; pH VBG 7.44 (7.36-7.41)
[2018-10-13 09:21] LABS: Alanine Aminotransferase 21 U/L (12-78); Albumin Level 3.5 gm/dl (3.4-5.0); Aspartate Aminotransferase 18 U/L (15-37); BUN Creatinine Ratio 20.9 (10-20); Blood Urea Nitrogen 23 mg/dl (7-18); Calcium 9.3 mg/dl (8.5-10.1); Carbon Dioxide 28 mmol/L (21-32); Chloride 106 mmol/L (98-107); Creatinine Clr Calc Pharmacy 52.8 ml/min; Est GFR (African American) 58.9; Est GFR (Non-African American) 50.8; Glucose 94 mg/dl (70-99); Magnesium 1.9 mg/dl (1.8-2.4); Potassium 4.2 mmol/L (3.5-5.1); Sodium 139 mmol/L (136-145)
[2018-10-13 09:26] LABS: Albumin Globulin Ratio 0.8 (0.9-2); Alkaline Phosphatase 131 U/L (45-117); Bilirubin,Total 0.5 mg/dl (0.2-1); Globulin 4.3 gm/dl (2.5-4.0); NT Pro B Type Natriuretic Pept 1435 pg/ml (0-900); Phosphorus 2.9 mg/dl (2.5-4.9); Total Protein 7.8 gm/dl (6.4-8.2); Troponin I < 0.015 ng/ml (0-0.045)
[2018-10-13] MEDS ORDERED: FAMOTIDINE 20 MG TAB PO ONE (10:01)
[2018-10-13] MEDS ORDERED: GI COCKTAIL ED USE PO ONE (10:01)
[2018-10-13] MEDS ORDERED: ALUMINUM/MAGNESIUM SUSP 30 ML UDC ONE (10:31)
[2018-10-13] MEDS ORDERED: LIDOCAINE HCL VISCOUS SOLN 2% 15 ML UDC ONE (10:31)
[2018-10-13] MEDS ORDERED: NITROGLYCERIN SL 0.4 MG/TAB TAB SL STA (11:30)
[2018-10-13] MEDS ORDERED: ASPIRIN CHEW 324 MG PO STA (11:30)
--- NOTE | 2018-10-13 13:48 | History & Physical Report ---
Date of Service October 13, 2018 Assessment & Plan (1) Exertional chest pain: Symptoms are moderately concerning for angina as they increase with exertion and ease with rest. Heart score of 4 (story, age), making her a moderate risk for 30-day cardiac event. Patient and daugther prefer inpatient testing as the daughter reports her mother will not follow up as outpatient. - Trend troponins and EKGs - AM stress test if troponins negative - Offered cardiology consult for her known afib and moderate mitral regurg, but the patient defers at this time (2) Mitral regurgitation: Echo in 03/2017 showed EF 60% and moderate mitral regurg. Seen by Dr. Yaya marquez at the time with recommendation to repeat echo in 1 year. Patient has not follow up at all. - Willing to have echo done inpatient - Defer cardiology consult at this time per patient request - Will re-raise issue if the echo shows progressive or concerning findings (3) Elevated brain natriuretic peptide (BNP) level: No signs/symptoms of volume overload or CHF. Possibly due to atrial stretch from her known mitral regurg. - Echo as above (4) Atrial fibrillation: Permenant. Refuses anticoagulation, but is taking a full-strength ASA daily (which may be contributing to her GERD). Takes calcium channel corrine for rate-control. - Continue ASA (switched to 81mg) as evidence supports it is just as effective with fewer GI side effects - Continue diltiazem (5) HTN (hypertension): BP normal in the ED (120/70). - Continue calcium channel corrine (6) GERD (gastroesophageal reflux disease): Long-standing, severe GERD. May be the etiology of her chest pain. If cardiac testing is negative, she will follow up with her PCP for further GI work-up. - Continue home PPI - H2 crorine & Maalox PRN (7) Pulmonary emboli: Prior remote DVT/PE. No longer on anticoagulation and defers at this time for her afib. - Lovenox 40mg subcut for DVT prophylaxis while inpatient History of Present Illness Primary Care Provider: Suraj Washington MD 68-year-old female with a history of permanent A. fib and mitral regurgitation who presents with chest pain. Patient reports of chest pain began last night in the epigastric/substernal area. She describes the pain as a 10 out of 10, burning sensation without radiation. At the time she took Tylenol and her home omeprazole which improved the pain for several hours, and she was able to go to bed. She reports the pain came back in the middle the night and bothered her throughout the night, but was not as severe as its initial presentation. In the morning she reports that the pain again worsened with movement, and that as she walked around to the pain became more severe. When she sat and rested the pain improved. She again took an omeprazole, with less relief this time. She reports the associated symptoms of nausea without vomiting. She denies any lightheadedness, sweats, dizziness, faintness, or other concerning symptoms. Of note, the patient takes a full strength aspirin every day for atrial fibrillation as she is not willing to take anticoagulation for it. Allergies Allergy/AdvReac Type Severity Reaction Status Date / Time rivaroxaban AdvReac Mild stomach Unverified 03/17/17 04:19 upset Home Medications Home Medications Medication Instructions Recorded Confirmed Type [id number] 1,000 mcg PO DAILY 10/13/18 10/13/18 History diltiazem HCl 240 mg PO DAILY 10/13/18 10/13/18 History omega [id number]-ebq-ild-fish oil [Fish Oil] 1 cap PO TID 10/13/18 10/13/18 History omeprazole 40 mg PO DAILY 10/13/18 10/13/18 History Past Med/Surg History Medical History COPD (chronic obstructive pulmonary disease) (Chronic) CHF (congestive heart failure) (Chronic) Gouty arthritis of toe of right foot (Acute) GERD (gastroesophageal reflux disease) (Chronic) HTN (hypertension) DVT (deep venous thrombosis) (Resolved) HTN (hypertension) (Chronic) Pulmonary emboli (Resolved) Family History Father Hypertension Social History Preferred Language: Serbian Communication Ability: Effective [place] Required: No Beliefs That Will Affect Care: Moravian marital status: Current Living Situation: Spouse current occupational status: retired Other Information That Helps Us Care for You: No Feels Safe at Home: Yes Safety Concerns: Feels Safe At This Time Smoking Status: Never smoker Hx Alcohol Use: No Hx Substance Use: No Review of Systems Constitutional: no fever, no chills and no sweats Eyes: no diplopia Ear, Nose, Mouth, Throat: no ear trauma, no nasal discharge and no dental pain Respiratory: no cough, no chest congestion and no dyspnea Cardiovascular: + chest pain and + chest pain at rest; no radiating jaw, neck or arm pain, no dyspnea, no dyspnea on exertion, no orthopnea, no palpitations, no lightheadedness and no syncope Gastrointestinal: + nausea; no abdominal pain, no belching, no vomiting, no constipation, no diarrhea/loose stools, no blood in stools and no melena Musculoskeletal: no back pain, no joint pain and no muscle weakness Integumentary: no rash, no skin ulcer and no erythema Neurologic: no generalized weakness, no loss of sensation, no numbness and no paresthesia Psychiatric: no depression and no anxiety Endocrine: no fatigue, no polydipsia and no polyphagia Physical Exam Vital Signs (Past 24 Hours): Last Vital Signs Temp 36.4 C L 10/13/18 08:43 Pulse 68 10/13/18 13:22 Resp 19 10/13/18 13:22 BP 121/68 10/13/18 13:22 Pulse Ox 96 10/13/18 13:22 Constitutional: WD/WN, vitals as above Eyes: EOM intact bilaterally; no conjunctival abnormality ENMT: external ear and nose normal, oropharynx normal Neck: trachea midline, no thyromegaly normal visual inspection Respiratory: normal respiratory effort, lungs clear to auscultation no respiratory distress Cardiovascular: Rate/Rhythm: regular rate; + abnormal rhythm Heart Sounds: normal S1 and normal S2 Extremities: no edema Gastrointestinal (Abdomen): Inspection/Auscultation: abdomen normal to inspection; abdomen not distended Musculoskeletal: no cyanosis or clubbing, extremities motor strength 5/5 Skin: no rashes, warm and dry Neurologic: moves all extremities and awake Psychiatric: Orientation: alert, oriented to person and cooperative
[2018-10-13] MEDS ORDERED: ACETAMINOPHEN 325 MG TAB PO PRN (14:29)
[2018-10-13] MEDS ORDERED: ALUMINUM/MAGNESIUM SUSP 30 ML UDC PO PRN (14:29)
--- NOTE | 2018-10-13 15:45 | Emergency Department Note ---
Entered by Mamta Ag acting as a scribe for History of Present Illness General Chief complaint: Chest Pain Stated complaint: CHEST PAINS SINCE YESTERDAY Time Seen by Provider: 10/13/18 08:54 Source: patient History of Present Illness Onset (ago): day(s) 1 Location: chest Pain Consistency: + intermittent Maximum Pain Intensity: 3 Relieved By: + medication (antacids) Exacerbated By: + other (exertion) Associated symptoms: + other (diffuse body aches); no nausea/vomiting (nausea) The patient is a 68 year old female who presents to the Emergency Room with complaints of an episode of chest pain that began yesterday. She notes that the pain worsens with exertion. The patient reports that she has a history of GERD and took an antacid pill last night that relieved the pain enough to allow her sleep. She notes that the pain returned this morning upon waking at 0500. She denies any nausea but states that she aches diffusely throughout her body. She reports she has a history of CHF and atrial fibrillation but is not currently taking any diuretics. She notes that she does not monitor her weight to monitor for water retention. Her daughter states she has a history of COPD but is a never smoker. 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 She denies any history of heart attacks. She notes she has a history of gout and noticed pain in her big toe starting two days ago. Home Medications Home Medications Medication Instructions Recorded Confirmed Type [id number] 1,000 mcg PO DAILY 10/13/18 10/13/18 History diltiazem HCl 240 mg PO DAILY 10/13/18 10/13/18 History omega 0-xef-ejl-fish oil [Fish Oil] 1 cap PO TID 10/13/18 10/13/18 History omeprazole 40 mg PO DAILY 10/13/18 10/13/18 History Allergies Allergy/AdvReac Type Severity Reaction Status Date / Time rivaroxaban AdvReac Mild stomach Unverified 03/17/17 04:19 upset Past Med/Surg History Medical History COPD (chronic obstructive pulmonary disease) (Chronic) CHF (congestive heart failure) (Chronic) Gouty arthritis of toe of right foot (Acute) GERD (gastroesophageal reflux disease) (Chronic) HTN (hypertension) DVT (deep venous thrombosis) (Resolved) HTN (hypertension) (Chronic) Pulmonary emboli (Resolved) Family History Father Hypertension Social History Preferred Language: Japanese Communication Ability: Effective Squad Boss Required: No Beliefs That Will Affect Care: Mandaen marital status: Current Living Situation: Spouse current occupational status: retired Other Information That Helps Us Care for You: No Feels Safe at Home: Yes Safety Concerns: Feels Safe At This Time Smoking Status: Never smoker Hx Alcohol Use: No Hx Substance Use: No Review of Systems See HPI for pertinent positives & negatives. and A total of 10 systems reviewed and were otherwise negative Physical Exam Vital Signs Vital Signs - 24 hr 10/13/18 08:43 10/13/18 08:47 10/13/18 08:57 Temperature 36.4 C L Temperature Source Oral Sepsis Recent Fever Within 48 Hours No Sepsis New/Unexplained Change in Mental Status No Sepsis Action Taken by Nursing No Action Required Pulse Rate 98 H Pulse Rate [Left Finger] Pulse Rhythm [Left Finger] Pulse Strength [Left Finger] Respiratory Rate 20 Respiratory Effort / Characteristics Non-Labored Respiratory Depth Normal Respiratory Pattern Blood Pressure 165/82 H Blood Pressure [Left Arm] Blood Pressure Mean 109 Blood Pressure Mean [Left Arm] Blood Pressure Position [Left Arm] Pulse Oximetry 96 96 97 Oxygen Delivery Method Room Air Room Air Room Air 10/13/18 10:38 10/13/18 11:51 10/13/18 12:03 Temperature Temperature Source Sepsis Recent Fever Within 48 Hours Sepsis New/Unexplained Change in Mental Status Sepsis Action Taken by Nursing Pulse Rate Pulse Rate [Left Finger] 81 75 Pulse Rhythm [Left Finger] Pulse Strength [Left Finger] Respiratory Rate 18 20 Respiratory Effort / Characteristics Non-Labored Respiratory Depth Normal Respiratory Pattern Blood Pressure Blood Pressure [Left Arm] 141/75 H 129/75 142/84 H Blood Pressure Mean Blood Pressure Mean [Left Arm] 97 93 103 Blood Pressure Position [Left Arm] Pulse Oximetry 98 96 Oxygen Delivery Method Room Air Room Air 10/13/18 13:22 10/13/18 14:29 10/13/18 15:49 Temperature 36.3 C L 36.6 C Temperature Source Oral Oral Sepsis Recent Fever Within 48 Hours Sepsis New/Unexplained Change in Mental Status Sepsis Action Taken by Nursing Pulse Rate Pulse Rate [Left Finger] 68 65 71 Pulse Rhythm [Left Finger] Regular Pulse Strength [Left Finger] Normal Respiratory Rate 19 22 18 Respiratory Effort / Characteristics Non-Labored SOB on Exertion Respiratory Depth Normal Normal Respiratory Pattern Regular Blood Pressure Blood Pressure [Left Arm] 121/68 142/82 H 127/84 Blood Pressure Mean Blood Pressure Mean [Left Arm] 85 102 98 Blood Pressure Position [Left Arm] Lying Pulse Oximetry 96 96 95 Oxygen Delivery Method Room Air Room Air Room Air 10/13/18 19:50 Temperature 36.4 C L Temperature Source Oral Sepsis Recent Fever Within 48 Hours Sepsis New/Unexplained Change in Mental Status Sepsis Action Taken by Nursing Pulse Rate Pulse Rate [Left Finger] 80 Pulse Rhythm [Left Finger] Pulse Strength [Left Finger] Respiratory Rate 18 Respiratory Effort / Characteristics Respiratory Depth Respiratory Pattern Blood Pressure Blood Pressure [Left Arm] 127/86 Blood Pressure Mean Blood Pressure Mean [Left Arm] 99 Blood Pressure Position [Left Arm] Left Lateral Pulse Oximetry 95 Oxygen Delivery Method Room Air GENERAL: Awake, alert, fatiguedl-appearing, in no distress HENT: Normocephalic, atraumatic. Oropharynx with dry mucous membranes and otherwise unremarkable. EYES: Normal conjunctiva. Sclera non-icteric. NECK: Supple. No nuchal rigidity. FROM. No JVD. RESPIRATORY: Scant bilateral wheezing but otherwise clear to auscultation. CARDIAC: Regular rate, irregular rhythm. Extremities warm and well perfused. Pulses equal. ABDOMEN: Soft, non-distended. No rebound or guarding. No masses. Mild epigastric discomfort with no discrete tenderness RECTAL: Deferred. MUSCULOSKELETAL: Chest examination reveals no tenderness. The back is symm etrical on inspection without obvious abnormality. There is no CVA tenderness to palpation. No joint edema. LOWER EXTREMITIES: Calves are equal size bilaterally and non-tender. Scant BLE edema. No discoloration. NEURO: Normal sensorium. No sensory or motor deficits noted. SKIN: No rash or jaundice noted. Course 0912: The patient was evaluated in room A10, and a complete history and physical examination were performed. 1125: I updated the patient on her lab and imaging results. 1133: I reviewed the patient's case with Dr. [place] [facility] [place] will [place] the patient for further management. 1140: I discussed today's findings with the patient. She verbally agreed to the treatment plan. She will be evaluated for further management and care. Consultations Consultation #1: I reviewed the patient's case with Dr. Cooper Casillas [facility] [place] will evaluate the patient for further management. Time: 11:33 Administered Medications Discontinued Medications Al Hydrox/Mg Hydrox/Simethicone () 1 dose PO ONE ONE Stop: 10/13/18 10:02 Last Admin: 10/13/18 10:38 Dose: Not Given Documented by: [id number] Al Hydrox/Mg Hydrox/Simethicone (Maalox) Confirm Administered Dose 30 ml .ROUTE .STK-MED ONE Stop: 10/13/18 10:32 Last Admin: 10/13/18 10:35 Dose: 30 ml Documented by: [id number] Aspirin (Aspirin) 162 mg PO NOW STA Stop: 10/13/18 11:31 Last Admin: 10/13/18 11:50 Dose: 162 mg Documented by: [id number] Famotidine (Pepcid) 20 mg PO NOW ONE Stop: 10/13/18 10:02 Last Admin: 10/13/18 10:35 Dose: 20 mg Documented by: [id number] Lidocaine HCl (Viscous Lidocaine 2%) Confirm Administered Dose 15 ml .ROUTE .STK-MED ONE Stop: 10/13/18 10:32 Last Admin: 10/13/18 10:35 Dose: 15 ml Documented by: [id number] Nitroglycerin (Nitrostat) 0.4 mg SL NOW STA Stop: 10/13/18 11:31 Last Admin: 10/13/18 11:51 Dose: 0.4 mg Documented by: [id number] Medical Decision Making Differential Diagnosis Differential diagnosis: Etiologies such as shingles, musculoskeletal pain, pericarditis, myocarditis, cardiac ischemia, pericardial tamponade, pneumonia, pneumothorax, pleural effusion, hemothorax, pleurisy, aortic pathology, pulmonary embolism, intra- abdominal process, as well as others were considered. Medical Records Attestation: I reviewed the patient's medical records. Home Medications Current Medication List: was personally reviewed by me Laboratory Data Attestation: I reviewed the patient's lab results. Result diagrams: 10/13/18 08:53 10/13/18 08:53 Lab Results 10/13/18 10/13/1819 Range/Units 08:53 08:53 09:07 WBC 7.56 (4.8-10.8) K/uL RBC 4.61 (4.2-5.4) M/uL Hgb 14.3 (12.0-16.0) g/dL Hct 43.0 (37-47) % MCV 93.3 (80-100) fL MCH 31.0 (25-34) pg MCHC 33.3 (32-36) g/dL RDW Std Deviation 46.8 H (36.4-46.3) fL RDW Coeff of Virgil 13.7 (11.5-14.5) % Plt Count 229 (130-400) K/uL MPV 10.1 (7.4-10.4) fL Immature Gran % (Auto) 0.0 % Neut % (Auto) 58.5 % Lymph % (Auto) 31.0 % Lassen % (Auto) 8.7 % Eos % (Auto) 1.3 % Baso % (Auto) 0.5 % Immature Gran # (Auto) 0.00 (0.00-0.02) K/uL Neut # (Auto) 4.42 (1.4-6.5) K/uL Lymph # (Auto) 2.34 (1.2-3.4) K/uL Lassen # (Auto) 0.66 H (0.11-0.59) K/uL Eos # (Auto) 0.10 (0-0.5) K/uL Baso # (Auto) 0.04 (0-0.2) K/uL VBG pH 7.44 H (7.36-7.41) VBG pCO2 43 (38-50) mmHg VBG pO2 38 mmHg VBG HCO3 29 mmol/L VBG O2 Saturation 73.5 % VBG Base Excess 3.7 mEq/L Barometric Pressure 737.9 mm/Hg Sodium 139 (136-145) mmol/L Potassium 4.2 (3.5-5.1) mmol/L Chloride 106 (98-107) mmol/L Carbon Dioxide 28 (21-32) mmol/L Anion Gap 6.0 (3-11) BUN 23 H (7-18) mg/dl Creatinine 1.10 (0.6-1.2) mg/dl Est Cr Clr Drug Dosing 52.8 ml/min Est GFR ( Amer) 58.9 Est GFR (Non-Af Amer) 50.8 BUN/Creatinine Ratio 20.9 H (10-20) Glucose 94 (70-99) mg/dl Calcium 9.3 (8.5-10.1) mg/dl Phosphorus 2.9 (2.5-4.9) mg/dl Magnesium 1.9 (1.8-2.4) mg/dl Total Bilirubin 0.5 (0.2-1) mg/dl AST 18 (15-37) U/L ALT 21 (12-78) U/L Alkaline Phosphatase 131 H (45-117) U/L Troponin I < 0.015 (0-0.045) ng/ml NT-Pro-B Natriuret Pep 1435 H (0-900) pg/ml Total Protein 7.8 (6.4-8.2) gm/dl Albumin 3.5 (3.4-5.0) gm/dl Globulin 4.3 H (2.5-4.0) gm/dl Albumin/Globulin Ratio 0.8 L (0.9-2) Lipase 98 (73-393) U/L Imaging Data Radiologist's Impression: Radiology results as stated below per my review and the radiologist's interpretation: XR chest 1V portable CLINICAL HISTORY: Chest Pain COMPARISON STUDY: Chest radiograph March 17, 2017. FINDINGS: Lung volumes are normal. Opacity along the left heart border reflects epicardial fat pad. Moderate cardiomegaly is unchanged. There is no evidence for pulmonary edema. There is no pneumothorax or pleural effusion. IMPRESSION: No acute cardiopulmonary findings. Stable cardiomegaly. Electronically signed by: Joby Quintanilla M.D. 10/13/2018 9:09 AM ECG Data Attestation: I personally reviewed and interpreted this ECG as follows: Indication: chest pain Rate (beats per minute): 97 Rhythm: atrial fibrillation Findings: + other (normal axis) and + T-wave inversion (non-specific); no ST de pression, no ST elevation and no acute ischemic change Comparison ECG Date: from (03/17/2017) Change: no significant change Blood Pressure Blood Pressure Findings: Elevated blood pressure Blood Pressure Disposition: Referred to patients primary care provider PATT Williamson The patient is a pleasant 68-year-old woman with a past medical history of atrial fibrillation not on Coumadin, COPD, CHF, hypertension who presents to emergency department with constant chest pain/burning since this morning per hpi. On arrival patient is in no acute distress, afebrile stable vital signs. On exam the patient has mild epigastric discomfort with no discrete tenderness. EKG demonstrates A. fib with out overt evidence of ischemia. Chest x-ray unremarkable. WBC, H/H, platelets wnl. Chemistry without acidosis. LFTs and electrolytes unremarkable. Troponin negative. BNP 1400s. She was given Pepcid and GI cocktail with mild improvement, though she admits she did drink coffee while in the emergency department. Patient was initially reporting that her pain was related to lying flat then waking up at night however then she reported that it is worsened when she exerts herself. Thus, given that the patient had no prior history of exertional pain it is reasonable to admit the patient for further management for possible angina. Patient given ASA and trial of nitroglycerin. Case was discussed with [place]. Casillas, [facility] [place], who will evaluate the patient for admission. Impression & Plan Exertional chest pain Discharge Plan Visit Data *Final* Discharge Date/Time: 10/13/18 13:53 Chief Complaint: Chest Pain Stated Complaint: CHEST PAINS SINCE YESTERDAY ED Provider: Navdeep Jean Discharge Problem: Exertional chest pain Patient Disposition: Admitted As Inpatient Discharge Instructions Interventions: ED Discharge Assessment Last Done: 10/13/18 13:53 The scribe's documentation has been prepared under my direction and personally reviewed by me in its entirety. I confirm that the note above accurately reflects all work, treatment, procedures, and medical decision making performed by me.
[2018-10-14 06:14] LABS: Hematocrit (blood only) 41.6 % (37-47); Hemoglobin 13.7 g/dL (12.0-16.0); Mean Corpuscular Hgb Conc 32.9 g/dL (32-36); Mean Corpuscular Volume 93.9 fL (80-100); Mean Platelet Volume 10.4 fL (7.4-10.4); Platelet Count 218 K/uL (130-400); RDW Coefficient of Variation 13.8 % (11.5-14.5); RDW Standard Deviation 47.4 fL (36.4-46.3); Red Blood Count 4.43 M/uL (4.2-5.4); White Blood Count 6.63 K/uL (4.8-10.8)
[2018-10-14 06:47] LABS: BUN Creatinine Ratio 19.8 (10-20); Calcium 8.8 mg/dl (8.5-10.1); Creatinine Clr Calc Pharmacy 50.3 ml/min; Est GFR (African American) 57.6; Est GFR (Non-African American) 49.7; Potassium 3.9 mmol/L (3.5-5.1)
[2018-10-14 06:52] LABS: Troponin I 0.022 ng/ml (0-0.045)
[2018-10-14] MEDS: ASPIRIN 81 MG ECTAB PO SCH (07:29)
[2018-10-14] MEDS: PANTOprazole 40 MG TAB PO SCH (07:29)
[2018-10-14] MEDS: dilTIAZem HCL 240 MG CAPCR PO SCH (07:29)
--- NOTE | 2018-10-14 09:05 | Hospitalist Progress Note ---
Date of Service October 14, 2018 Assessment & Plan (1) Exertional chest pain: Symptoms are moderately concerning for angina as they increase with exertion and ease with rest. Heart score of 4 (story, age), making her a moderate risk for 30-day cardiac event. Patient and daugther prefer inpatient testing as the daughter reports her mother will not follow up as outpatient. - troponins and EKGs negative -Given new apical abnormality on echocardiogram the patient underwent left heart cath which she had a stent deployed in her left anterior descending artery return to the floor in good condition per cardiology she started on atorvastatin and Plavix (2) Mitral regurgitation: Echo in 03/2017 showed EF 60% and moderate mitral regurg. Echo with preserved EF but apical abnormality - (3) Elevated brain natriuretic peptide (BNP) level: No signs/symptoms of volume overload or CHF. Possibly due to atrial stretch from her known mitral regurg. - Echo as above (4) Atrial fibrillation: Permenant. Refuses anticoagulation, but is taking a full-strength ASA daily (which may be contributing to her GERD). Takes calcium channel corrine for rate-control. - Continue ASA (switched to 81mg) as evidence supports it is just as effective with fewer GI side effects - Continue diltiazem we will discuss with cardiology whether we should add a beta-corrine to her regimen given her recent coronary disease and likely add a high potency statin to her regimen (5) HTN (hypertension): BP normal in the ED (120/70). (6) GERD (gastroesophageal reflux disease): Long-standing, severe GERD. May be the etiology of her chest pain. If cardiac testing is negative, she will follow up with her PCP for further GI work-up. - Continue home PPI - H2 corrine & Maalox PRN (7) Pulmonary emboli: Prior remote DVT/PE. No longer on anticoagulation and defers at this time for her afib. -Patient be an Lovenox subcu starting on the a.m. of 10/15 Subjective Patient had one episode of chest pain overnight since resolved. After discussing results of her echocardiogram personally with the photographer's model focal abnormality and echo. She is referred to the quality assurance/r&d lab technician who will take her to cardiac catheterization on 10/14 Review of Systems ROS: well nourished well developed. No double vision blurry vision No problems with speech or swallowing Some recurring chest pain overnight No Wheezing or breathing issues No abdominal pain nausea vomiting diarrhea changes in appetite or weight No burning urine urine frequency or changes in color No focal joint pain or muscle pain No skin rashes or oral lesions No unusual bruising or bleeding No focused back pain or numbness or loss of strength No changes in memory or confusion Physical Exam Vital Signs (Past 24 Hours): Last Vital Signs Temp 36.2 C L 10/14/18 07:54 Pulse 90 10/14/18 07:54 Resp 16 10/14/18 07:54 BP 134/85 10/14/18 07:54 Pulse Ox 96 10/14/18 07:54 The patient appeared well nourished and normally developed. Vital signs as documented. Head exam is unremarkable. normocephalic, atraumatic Neck is without jugular venous distension, thyromegaly, or lymphademopathy Lungs are clear to auscultation and percussion. Cardiac exam reveals Rhythm is regular. Mild systolic murmur first and second heart sounds normal. Abdominal exam reveals normal bowel sounds, no masses, no organomegaly Extremities are nonedematous and both pedal pulses are present Neurologic exam is A&Ox3, no focal deficits, strength is equal bilateral Psychologically seems neither anxious or depressed Skin is warm Dry without bruises or lesions
--- NOTE | 2018-10-14 11:22 | Cardiology Consultation ---
Date of Consultation October 14, 2018 Assessment & Plan (1) Exertional chest pain: The patient experienced a prolonged episode of chest discomfort yesterday. Fortunately, her troponin is normal. However, as described above, the patient now has akinesis of the left ventricular apex. She does give a 2 to three-week history of profound exertional dyspnea. Would proceed with cardiac catheterization rather than stress testing. (2) Abnormal echocardiogram: Echocardiogram from yesterday notes normal left ventricular systolic function, but akinesis of left ventricular apex. This was not present on the study performed in March 2017. As above, will proceed with a cardiac catheterization. (3) Atrial fibrillation: Fortunately, her ventricular response is well controlled on her current medical regimen. As above, she refuses long-term anticoagulation. (4) Mitral regurgitation: Echocardiogram performed yesterday noted mild to moderate mitral regurgitation. Would suggest surveillance echocardiograms every several years. History of Present Illness Attending Physician: Munir Molina MD History of Present Illness Mrs. Chilel is a 68-year-old female admitted yesterday with a chest pain syndrome. This consultation was ordered to assist in her management. Of note, the patient has seen Dr. Garcia in the outpatient setting. The patient was in her usual state of health until 2-3 weeks prior to presentation. She began to note profound fatigue and had dyspnea with minimal physical activity. Yesterday, the patient experienced a 2 hour episode of substernal chest burning. Patient noticed that her chest discomfort became worse with physical activity, and therefore, she presented to the emergency room for further care. The patient did have a cardiac catheterization performed by Dr. Augustine in December 2003. She had an ectatic proximal LAD but no evidence of coronary artery disease. The patient did have an episode of acute on chronic diastolic CHF in August 2012. The patient was found to be in atrial fibrillation with rapid ventricular response at that time. Echocardiogram noted severe mitral regurgitation. Fortunately, follow-up echocardiograms were performed which noted improvement in mitral regurgitation as her ventricular response was controlled. Her most recent outpatient echocardiogram was performed in March 2017 and noted normal left ventricular systolic function and evidence of moderate mitral regurgitation. Echocardiogram performed yesterday noted apical akinesis and mild to moderate mitral regurgitation. Her stress test was canceled. The patient also carries a history of permanent atrial fibrillation. She refuses long-term anticoagulation. The patient has experienced any recent syncope, presyncope, PND, orthopnea, lower extremity edema, or claudication. Currently, patient resting comfortably in bed without complaints. We have had a long discussion regarding the need for a cardiac catheterization. The patient understands and agrees to proceed. Past medical surgical history 1. Hypertension 2. Rdtq-mz-ywmcoenv mitral regurgitation 3. Chronic diastolic CHF-August 2012 4. Permanent atrial fibrillation 5. COPD 6. GERD 7. DVT/PE-February 2017 8. Gout 9. Multinodular goiter 10. Cervical polyps 11. Tubal ligation 12. Atrophic right kidney Social history and lives with her No tobacco or alcohol Family history Father at 37 from trauma Mother at 60 from pneumonia Two brothers of an ME, one was 50, the other 55 years of age. Review of systems A 10 point review of systems was undertaken and negative except for that described above. Allergies Allergy/AdvReac Type Severity Reaction Status Date / Time rivaroxaban AdvReac Mild stomach Unverified 03/17/17 04:19 upset Home Medications Home Medications Medication Instructions Recorded Confirmed Type [id number] 1,000 mcg PO DAILY 10/13/18 10/13/18 History diltiazem HCl 240 mg PO DAILY 10/13/18 10/13/18 History omega 4-usa-ini-fish oil [Fish Oil] 1 cap PO TID 10/13/18 10/13/18 History omeprazole 40 mg PO DAILY 10/13/18 10/13/18 History Patient History Medical History COPD (chronic obstructive pulmonary disease) (Chronic) CHF (congestive heart failure) (Chronic) Gouty arthritis of toe of right foot (Acute) GERD (gastroesophageal reflux disease) (Chronic) HTN (hypertension) DVT (deep venous thrombosis) (Resolved) HTN (hypertension) (Chronic) Pulmonary emboli (Resolved) Family History Father Hypertension Social History Preferred Language: Khmer Communication Ability: Effective Healthcare Consultant Required: No Beliefs That Will Affect Care: Christianity marital status: Current Living Situation: Spouse current occupational status: retired Other Information That Helps Us Care for You: No Feels Safe at Home: Yes Safety Concerns: Feels Safe At This Time Smoking Status: Never smoker Hx Alcohol Use: No Hx Substance Use: No Physical Exam Vital Signs (Past 24 Hours): Last Vital Signs Temp 36.2 C L 10/14/18 07:54 Pulse 93 H 10/14/18 08:00 Resp 16 10/14/18 07:54 BP 134/85 10/14/18 07:54 Pulse Ox 96 10/14/18 07:54 Physical Exam: In general this is an obese white female lying supine in bed without complaints. HEENT exam is negative. Neck is supple with full carotid upstrokes. There are no carotid bruits. Jugular venous pressure is flat at 90 degrees. There is no thyromegaly. Cardiovascular exam reveals an irregular rhythm with distant heart sounds. No obvious murmurs. No S3. Lungs are clear without rales, rhonchi or wheezes. Abdomen is soft and nontender without bruits. Extremities reveal intact radial artery pulses bilaterally. There is trace pretibial edema. Results & Data Laboratory Results Laboratory Results - last 24 hr 10/14/18 10/14/18 05:54 05:54 WBC 6.63 RBC 4.43 Hgb 13.7 Hct 41.6 MCV 93.9 MCH 30.9 MCHC 32.9 RDW Std Deviation 47.4 H RDW Coeff of Virgil 13.8 Plt Count 218 MPV 10.4 Sodium 140 Potassium 3.9 Chloride 106 Carbon Dioxide 27 Anion Gap 7.0 BUN 22 H Creatinine 1.12 Est Cr Clr Drug Dosing 50.3 Est GFR ( Amer) 57.6 Est GFR (Non-Af Amer) 49.7 BUN/Creatinine Ratio 19.8 Glucose 93 Calcium 8.8 Magnesium 2.0 Troponin I 0.022 Diagnostic Findings Initial EKG noted atrial fibrillation with aberrant conduction and poor R-wave progression across the anterior precordium. Tracing this morning again notes atrial fibrillation with significant T-wave inversion in the anterolateral leads. Chest x-ray notes cardiomegaly but no acute disease.
[2018-10-14] MEDS ORDERED: fentaNYL citrate 100 MCG/2 ML VIAL ONE (13:26)
[2018-10-14] MEDS ORDERED: NiCARDipine HCL INJ 2.5 MG/ML 10 ML AMP ONE (13:26)
[2018-10-14] MEDS ORDERED: HEPARIN (PORCINE) 1000 UNIT/ML 10 ML (CATH LAB USE ONLY) ONE (13:26)
[2018-10-14] MEDS ORDERED: MIDAZOLAM HCL 1 MG/ML 2ML VIAL ONE (13:26)
[2018-10-14] MEDS ORDERED: NITROGLYCERIN/D5W 100MCG/ML 20ML SYR ONE (13:26)
[2018-10-14] MEDS ORDERED: CLOPIDOGREL BISULFATE 300 MG TAB ONE (15:00)
--- NOTE | 2018-10-14 15:04 | Pre Anesthesia Assessment ---
Date of Service October 14, 2018 Pre Sedation Assessment Vital Signs Temp Pulse Pulse Resp BP BP Pulse Ox 10/14/18 12:09 36.5 C 79 16 113/72 96 10/14/18 08:00 93 H 10/14/18 07:54 36.2 C L 90 16 134/85 96 10/14/18 04:30 36.6 C 91 H 18 128/86 93 10/14/18 00:18 85 10/13/18 23:10 36.8 C 68 18 122/81 95 10/13/18 19:50 36.4 C L 80 18 127/86 95 10/13/18 16:20 60 10/13/18 15:49 36.6 C 71 18 127/84 95 Cardiovascular RRR, no murmur, no edema Respiratory normal respiratory effort, lungs clear to auscultation Pre-Sedation Airway Assessment Smoking Status: Never smoker Hx Sleep Apnea: No Hx Difficult Intubation: No Short, Thick Neck: No Thyromental Distance: > or= 3.5 Finger Breadths Mallampati Class: III Procedure Planning Contraindications for Sedation: none Current Medications Reviewed: Yes Notes The planned sedation has been discussed with the patient. Informed Consent was obtained. I have identified the patient, determined the appropriateness of sedation and have assessed the patient immediately prior to the procedure. All medicine(s) and interventions are by my order.
--- NOTE | 2018-10-14 15:06 | Post Anesthesia Assessment ---
Date of Service October 14, 2018 Post Sedation Assessment Vital Signs Temp Pulse Pulse Resp BP BP Pulse Ox 10/14/18 12:09 36.5 C 79 16 113/72 96 10/14/18 08:00 93 H 10/14/18 07:54 36.2 C L 90 16 134/85 96 10/14/18 04:30 36.6 C 91 H 18 128/86 93 10/14/18 00:18 85 10/13/18 23:10 36.8 C 68 18 122/81 95 10/13/18 19:50 36.4 C L 80 18 127/86 95 10/13/18 16:20 60 10/13/18 15:49 36.6 C 71 18 127/84 95 Recovery Score Activity: Moves 4 extremities Respiration: Deep Breath/Cough Circulation: +/-20% PreAnes Value Consciousness: Fully Awake Oxygen Saturation: O2 needed for >90% Post Sedation Plan On clinical assessment, the patient appears to have tolerated the sedation without complications. Patient is recovering as anticipated. Patient will continue to be monitored by nursing and may be discharged when sedation discharge criteria are met per below protocol. Upon Completions of procedure and additional 15 minutes continue every 5 minute vital signs and the P.A.R. score; then discharge to a Phase I or Fast Track to Phase II per the following guidelines: * Discharge Patient to appropriate Phase II area if PAR is 8 or greater or return to pre- procedure baseline. The post - procedure orders will be as directed. * If PAR score is less than 8 or not return to pre-procedure baseline then patient will follow Phase I monitoring till PAR is reached for Phase II. The Phase I may be done in procedure room or may call to secure a Phase I area. * If naloxone or flumazenil are used for reversal, hold in Phase I for continued monitoring from when last reversal dose was given for a minimum of 60 minutes or longer pending the nurse and/or physician discretion of patient condition before discharge to Phase II. Please call the Sedation Physician to re-evaluate and complete post-note for discharge to Phase II area. Do NOT discharge from procedure sedation or Phase 1 until post- sedation evaluation note is complete by procedure /sedation MD Sedation Discharge Instructions to be given to the patient at discharge to home.
[2018-10-14] MEDS ORDERED: ACETAMINOPHEN 325 MG TAB PO PRN (15:17)
[2018-10-14] MEDS ORDERED: ONDANSETRON INJ 2 MG/ML 2 ML VIAL IV PRN (15:17)
--- NOTE | 2018-10-14 15:17 | Cardiac Catheterization ---
Cardiac Cath Procedure Full Procedure Date October 14, 2018 Pre-Procedure Diagnosis Pre-Procedure Diagnosis: Angina AUC Score AUC Score: 7 Post-Procedure Diagnosis Post-Procedure Diagnosis: Severe CAD, Successful PCI and Normal Intracardiac Pressures Procedure(s) Performed Procedure(s) Performed: Coronary Angiography, Left Heart Cath and Drug Eluting Stent Roller Printing Supervisor Armando Mas MD Tentmaker(s) Ricci Estimated Blood Loss Estimated Blood Loss: 15 Medication(s) Medication(s): Clopidogrel, Fentanyl, Heparin, Lidocaine 1%, Nicardipine, Nitroglycerin and Versed Summary of Findings Indication: Accelerating angina, abnormal echocardiogram with apical wall motion of normality Access: 6 Fr right radial artery Catheters: Alexis, EBU 3.5 guide Findings: LM -large caliber vessel with luminal irregularities LAD -large caliber vessel, 95% focal stenosis in the mid segment, distal segment tortuous with mild disease before wraps around apex. Gives off 2 small diagonals without significant disease. Circumflex -30-40% ostial, 20-30% mid segment disease. Large first OM without segment disease. Moderate caliber OM 2 with 30% proximal disease. RCA -dominant, large caliber vessel, proximal luminal irregularities, 20-30% distal disease LVEDP -14 -- PCI -- Antithrombotic therapy: Heparin, clopidogrel Procedure: Left main cannulated with EBU 3.5 guide BMW wire passed across lesion into distal vessel Mid LAD lesion predilated with 2.5 compliant balloon Dilated lesion stented with 3.5 x 15 mm Xience Roselia drug-eluting stent Stent post-dilated with 3.75 noncompliant balloon IC vasodilators administered for spasm Post procedure LINDY 3 flow, stent well expanded with minimal residual stenosis and no apparent cardiac complications. Arterial Closure: TR Summary: 1. Severe single vessel coronary artery disease -95% mid LAD 2. Normal intracardiac filling pressure 3. Successful PCI of mid LAD with single drug-eluting stent (3.5 x 15 Xience Roselia; postdilated with 3.75 NC). Recommendations: To PCU for continued monitoring Loaded with clopidogrel 600 mg Continue dual-antiplatelet therapy for at least 6-month Continue statin, and ASCVD risk factor modification Consult cardiac Rehab Hemodynamics Rest Ao:: 131/60/92 Final Ao: 120/70/93 LV: 123/14 Recommendations Recommendations: PCI without planned CABG Specimens Specimens: None Radiation Exposure (mGy) 1926 Contrast (mls) 110 Fluids (cc crystalloids) Fluids (cc crystalloids): 70 Drains Drains: none Anesthesia moderate Procedural Complication(s) None Disposition PCU ACC Data: Pulp Drier Cardiac Status Clinical evaluation leading to the procedure CAD Presenation: Unstable angina Anginal Classification: CCS III Heart Failure: No Cardiogenic Shock within 24 Hours: No Cardiac Arrest within 24 Hours: No Imaging Studies Past 6 Months: Yes Stress Studies Past 6 Months: No Diagnostic Physicians Name: Armando Mas MD Status: Elective Closure Device Percutaneous Entry Location: Radial Closure Device: Radial Band Recommendations: PCI without planned CABG PCI Indication: Unstable Angina Lesion Segment Name: mid LAD Culprit Artery: Yes Stenosis Prior to Rx (%): 95 Chronic Total Occlusion: No IVUS: No FFR: No Pre-Procedure LINDY Flow: 3 Previously Treated Lesion: No Lesion Complexity: Non-High/Non-C Lesion Length (mm): 12 Thrombus Present: No Bifurcation Lesion: Yes Guidewire Across Lesion: Stenosis Post-Procedure (%): 0 Post-Procedure LINDY Flow: 3 Devices(s) Deployed: Yes Yes Intraprocedure Events Significant Disection: No Perforation: No
[2018-10-14] MEDS ORDERED: SODIUM CHLORIDE 0.9% 1000ML 500 ML IV SCH (15:30)
[2018-10-14 16:47] LABS: INR 1.1 (0.9-1.1); Prothrombin Time 11.5 Seconds (9.0-12.0)
[2018-10-15] MEDS: ASPIRIN 81 MG ECTAB PO SCH (07:17)
[2018-10-15] MEDS: PANTOprazole 40 MG TAB PO SCH (07:17)
[2018-10-15] MEDS: dilTIAZem HCL 240 MG CAPCR PO SCH (07:17)
[2018-10-15] MEDS ORDERED: ATORVASTATIN 40 MG TAB PO SCH (09:00)
[2018-10-15] MEDS ORDERED: CLOPIDOGREL BISULFATE 75 MG TAB PO SCH (09:00)
[2018-10-15] MEDS ORDERED: ENOXAPARIN INJ 40 MG/0.4 ML SYR SQ SCH (09:00)
--- NOTE | 2018-10-15 10:14 | Cardiology Progress Note ---
Date of Service October 15, 2018 Assessment & Plan (1) Exertional chest pain: Unclear the initial symptoms of indigestion were angina. She reports a very long history of similar symptoms. Most of these episodes appear to be related to ingestion of certain foods. (2) Abnormal echocardiogram: With her wall motion abnormality, she likely would benefit from beta- blockade. Overall EF is normal and she has not had an actual infarct based on enzymes. However, the echocardiogram suggests injury and I think addition of low-dose beta-corrine will have several benefits including improved rate control with activity. (3) Atrial fibrillation: She had some elevated rates with activity today. I would advocate continuation of her current dose of diltiazem in addition of low-dose metoprolol. I think 25 milligrams of metoprolol succinate would be reasonable. We can follow her rates in the outpatient setting. Again, she is on dual anti- platelet therapy but does not consented to full anticoagulation. (4) Mitral regurgitation: Echocardiogram performed yesterday noted mild to moderate mitral regurgitation. Would suggest surveillance echocardiograms every several years. (5) Coronary artery disease: Successful placement of LAD stent yesterday. She will need to continue on dual anti-platelet therapy, preferably for 1 year. We can discuss this in the outpatient setting. She is not appear to have suffered any complication and appears safe for discharge today. Subjective This morning the patient claims to be feeling well. No significant pain at the radial access site. She was ambulatory around her room without symptoms of chest discomfort, dizziness or palpitation. Physical Exam Vital Signs (Past 24 Hours): Last Vital Signs Temp 36.7 C 10/15/18 09:50 Pulse 90 10/15/18 09:50 Resp 16 10/15/18 09:50 BP 141/82 H 10/15/18 09:50 Pulse Ox 96 10/15/18 09:50 Physical Exam: She is alert and oriented x3. Mood affect appear normal. She answered all questions appropriately. HEENT: Sclerae are anicteric. Pupils are equal and reactive to light and accommodation. Extraocular movements were intact. Neuro: Cranial nerves intact Neck: Examination of the submandibular region did not reveal any significant lymphadenopathy. Carotids are palpable bilaterally and free of bruits on auscultation. There was no evidence of jugular venous distention. The thyroid was not enlarged. Lungs: Lungs are clear to auscultation bilaterally. There are no rales wheezes or rhonchi. She has normal respiratory effort without use of accessory muscles. There is normal pulmonary excursion. Cardiac: The rhythm was regular. S1 and S2 were normal. There are no murmurs on examination. The PMI was not markedly displaced on palpation. Abdomen: The abdomen was soft and nontender. Extremities: Patient has bilateral radial pulses that are equal in intensity. There is no evidence cyanosis or clubbing. There is good perfusion of the right hand. There was no evidence of significant peripheral edema bilaterally. Skin: There are no rashes noted on examination today. Results & Data Laboratory Results Abnormal Lab Results 10/14/18 10/14/18 13:50 16:15 PT 11.5 INR 1.1 Activ Coag Time Kaolin 246 H Diagnostic Findings Cardiac catheterization performed yesterday revealed a severe stenosis in the mid LAD. This was opened percutaneously with good result. She had some nonobstructive disease in the other distributions. ECG Additional Comments: Telemetry reveals atrial fibrillation with high rates at times.
--- NOTE | 2018-10-15 18:43 | Discharge Summary ---
Date of Service October 15, 2018 Admission HPI Per Admitting Provider 68-year-old female with a history of permanent A. fib and mitral regurgitation who presents with chest pain. Patient reports of chest pain began last night in the epigastric/substernal area. She describes the pain as a 10 out of 10, burning sensation without radiation. At the time she took Tylenol and her home omeprazole which improved the pain for several hours, and she was able to go to bed. She reports the pain came back in the middle the night and bothered her throughout the night, but was not as severe as its initial presentation. In the morning she reports that the pain again worsened with movement, and that as she walked around to the pain became more severe. When she sat and rested the pain improved. She again took an omeprazole, with less relief this time. She reports the associated symptoms of nausea without vomiting. She denies any lightheadedness, sweats, dizziness, faintness, or other concerning symptoms. Of note, the patient takes a full strength aspirin every day for atrial fibril lation as she is not willing to take anticoagulation for it. Principal Diagnosis unstable angina left heart cath stent deployment in LAD coronary artery Discharge Exam Constitutional well developed and average body habitus Eyes no conjunctival abnormality and no scleral abnormality Neck normal visual inspection and trachea midline Respiratory normal respiratory effort; no respiratory distress Auscultation: lungs clear to auscultation bilaterally Cardiovascular Rate/Rhythm: regular rate Heart Sounds: normal S1, normal S2 and + murmur Gastrointestinal (Abdomen) normal bowel sounds, soft, nontender, no hepatosplenomegaly Musculoskeletal no cyanosis or clubbing, extremities motor strength 5/5 Discharge Data Allergies Allergy/AdvReac Type Severity Reaction Status Date / Time rivaroxaban AdvReac Mild stomach Unverified 03/17/17 04:19 upset Consultations 10/13/18 11:30 ED Decision to Admit Stat 10/14/18 10:12 Consult Cardiology Stat Procedures Performed Operation Date: 10/14/18 13:00 Actual Procedures s Cineradiography w/Routine Exam - Patric Mas MD p Cath, Left with Cors and Vent - Ptaric Mas MD s Drug Eluting Stent SGl Vessel - Patric Mas MD Ordered Studies 10/14/18 11:58 CL Cath Imgs for PACS use only Urgent Hospital Course (1) Exertional chest pain: Symptoms are moderately concerning for angina as they increase with exertion and ease with rest. Heart score of 4 (story, age), making her a moderate risk for 30-day cardiac event. Patient and daugther prefer inpatient testing as the daughter reports her mother will not follow up as outpatient. - troponins and EKGs negative -Given new apical abnormality on echocardiogram the patient underwent left heart cath which she had a stent deployed in her left anterior descending artery return to the floor in good condition per cardiology she started on atorvastatin and Aspirin /Plavix (2) Mitral regurgitation: Echo in 03/2017 showed EF 60% and moderate mitral regurg. Echo with preserved EF but apical abnormality - (3) Elevated brain natriuretic peptide (BNP) level: No signs/symptoms of volume overload or CHF. Possibly due to atrial stretch from her known mitral regurg. - Echo as above (4) Atrial fibrillation: Permenant. Refuses anticoagulation, but is taking a full-strength ASA daily (which may be contributing to her GERD). Takes calcium channel corrine for rate-control. - Continue ASA (switched to 81mg) also on plavix and atorvostatin for secondary cardiac risk prevention - Continue diltiazem, pt can discuss with cardiology whether we should add a beta-corrine to her regimen given her recent coronary disease at outpt follow up (5) HTN (hypertension): controlled with diltiazem (6) GERD (gastroesophageal reflux disease): Long-standing, severe GERD. May be the etiology of her chest pain. If cardiac testing is negative, she will follow up with her PCP for further GI work-up. - Continue home PPI - H2 corrine & Maalox PRN (7) Pulmonary emboli: Prior remote DVT/PE. No longer on anticoagulation and defers at this time for her afib. Total Time Total Time Spent Total Time Spent (In Minutes): greater than 30 minutes were required to prepare discharge Discharge Plan Discharge Items Patient Disposition: Home - Self-Care Reason For Visit: CHEST PAIN Discharge Diagnosis: unstable angina, with left heart catheterization and stent placement Discharge Goals: Decrease discomfort, Diagnostic testing and Improve disease control Activity: As commented below Activity Comment: Please no intentional exertion until you see cardiology for follow up Non-emergency contact: Composition [employer] Applier Call non-emergency contact if: you have any medication questions Follow-up/Referrals: Patric Mas MD [Physician] - Suraj Washington MD [Primary Care Provider] - Diet: Heart Healthy Addtl Provider Instructions: Please rest and recover, no intentional exerecize until you follow up with cardiology Prescriptions: New atorvastatin 40 mg Tablet 40 mg PO QAM Qty: 30 RF: 5 clopidogrel 75 mg Tablet 75 mg PO QAM Qty: 90 RF: 3 aspirin [Ecotrin Low Strength] 81 mg Tablet,Delayed Release (Dr/Ec) 81 mg PO DAILY Qty: 90 RF: 3 Continued [id number] 1,000 mcg PO DAILY RF: 0 diltiazem HCl 240 mg capsule,extended release 24 hr 240 mg PO DAILY RF: 0 omeprazole 40 mg capsule,delayed release(DR/EC) 40 mg PO DAILY RF: 0 omega [id number] oil [Fish Oil] 1,000 mg (120 mg-180 mg) Capsule 1 cap PO TID RF: 0 Stand-Alone Forms: Call Back Authorization, [facility]/Other Patient Handouts: Stent Coronary, Cath Cardiac Dc Discharge Orders: Discharge Order (Routine); Ordered 10/15/18 Ordered By: Munir Molina Admission Data Admit Date/Time: 10/13/18 12:50 Attending Provider: Munir Molina Admit Provider: Cooper Casillas Primary Care Provider: Suraj Washington Other Providers: Cooper Casillas ; Patric Mas Service: Telemetry Other Interventions: Discharge Summary Assessment (RN) Last Done: 10/15/18 09:50 DC Date/Time DO NOT enter until pt leaves facility: 10/15/18 10:25
== END 2018-10-15 10:25 | disposition home or self-care (01) ==
LOC: ED 08:39 → 2W 08:39 → SUATTDRO 12:50 → 2W 13:53 → 2E 10-14 13:38

== ENCOUNTER 2023-03-08 14:56 | Inpatient (IN) ==
[2023-03-08 15:51] LABS: Basophils # (auto) 0.04 K/uL (0.00-0.20); Basophils % (auto) 0.4 %; Eosinophils # (auto) 0.03 K/uL (0.00-0.50); Eosinophils % (auto) 0.3 %; Hematocrit (blood only) 43.1 % (37.0-47.0); Immature Granulocytes # (auto) 0.03 K/uL (0.01-0.20); Immature Granulocytes % (auto) 0.3 %; Lymphocytes % (auto) 23.5 %; Mean Corpuscular Hgb Conc 32.5 g/dL (32.0-36.0); Mean Corpuscular Volume 92.3 fL (80.0-100.0); Mean Platelet Volume 10.5 fL (9.4-12.4); Monocytes # (auto) 0.68 K/uL (0.11-0.59); Monocytes % (auto) 7.6 %; Neutrophils # (auto) 6.04 K/uL (1.40-6.50); Neutrophils % (auto) 67.9 %; Platelet Count 204 K/uL (130-400); RDW Coefficient of Variation 13.3 % (11.5-14.5); RDW Standard Deviation 44.8 fL (36.4-46.3); Red Blood Count 4.67 M/uL (4.20-5.40); White Blood Count 8.92 K/ul (4.8-10.8)
[2023-03-08 16:01] LABS: Albumin Globulin Ratio 0.9 (0.9-2); Albumin Level 3.6 gm/dl (3.4-5.0); BUN Creatinine Ratio 15.8 (10-20); Bilirubin,Total 0.8 mg/dl (0.2-1.0); Calcium 9.1 mg/dl (8.6-10.3); Creatinine Clr Calc Pharmacy 49.4 ml/min; Est GFR (African American) 63.1 ml/min; Est GFR (Non-African American) 54.4 ml/min; Globulin 3.8 gm/dl (2.5-4.0); Potassium 3.9 mmol/L (3.5-5.1); Total Protein 7.4 gm/dl (6.0-8.3)
[2023-03-08 16:27] LABS: INR 1.1 (0.9-1.1); Partial Thromboplastin Ratio 0.9; Partial Thromboplastin Time 24.1 Seconds (21.0-31.0); Prothrombin Time 12.1 Seconds (9.0-12.0)
--- NOTE | 2023-03-08 16:31 | XRay Report ---
XR chest 1V not portable CLINICAL HISTORY: Chest pain, nonspecific COMPARISON STUDY: Chest CT February 18, 2017. Chest radiograph October 13, 2018. FINDINGS: Lung volumes are normal. Lungs are clear. There is no pneumothorax or pleural effusion. Mar ked cardiomegaly is unchanged. Mediastinal contours are normal. There is no evidence for pulmonary ed lina. IMPRESSION: No acute cardiopulmonary findings. Stable cardiomegaly. ACT 112: Negative or not required by law. Electronically signed by: Joby Quintanilla M.D. 03/08/2023 4:30 PM
[2023-03-08 16:32] LABS: Troponin I High Sensitivity 122.5 pg/ml (0-14)
[2023-03-08] MEDS ORDERED: PANTOprazole 40 MG TAB PO STA (17:05)
[2023-03-08] MEDS ORDERED: ASPIRIN CHEW 324 MG PO STA (17:05)
[2023-03-08] MEDS ORDERED: ALUMINUM/MAGNESIUM SUSP 30 ML UDC PO STA (17:05)
[2023-03-08] MEDS ORDERED: SODIUM CHLORIDE 0.9% 500 ML IV ONE (17:14)
--- NOTE | 2023-03-08 17:14 | Emergency Department Note ---
Impression & Plan Acute non-ST elevation myocardial infarction (NSTEMI), HTN (hypertension), Abdominal pain, epigastric ED Provider Note NAME: ELSI WARD AGE: 73 SEX: F : 1950 ARRIVES VIA: Walk-In INFORMANT: Patient, ED PROVIDER(S): Johnny Bernabe DO CHIEF COMPLAINT: Heartburn HPI: The patient is a 73-year-old female who presented to the emergency d [facility] for an evaluation of epigastric pain. The patient noticed epigastric pain and heartburn over the course of the last 3-4 nights. The patient denies having any lower extremity swelling. She does note some shortness of breath. She states her symptoms at this time feel much better. She is been compliant with her outpatient medications. She does have a history of coronary artery disease as well as atrial fibrillation. The patient denies having any fever or chills. She has a history of DVT. 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 ROS: See above HPI for pertinent positives & negatives. A total of 10 systems reviewed and were otherwise negative. PAST MEDICAL HISTORY: See Below PAST SURGICAL HISTORY: See Below FAMILY HISTORY: See Below SOCIAL HISTORY: See Below HOME MEDICATIONS: See Below ALLERGIES: See Below VITALS: See Below PHYSICAL EXAMINATION: GENERAL: Patient is awake alert in no acute distress patient is resting comfort ably and showing no signs of anxiety EYES: The conjunctivae are clear. The pupils are round and reactive. EARS, NOSE, MOUTH AND THROAT: The nose is without any evidence of any deformity. NECK: The neck is nontender and supple. RESPIRATORY: Normal respiratory effort is noted there is no evidence of wheezing rhonchi or rales CARDIOVASCULAR: Regular rate and rhythm noted there no murmurs rubs or gallops normal S1 normal S2. GASTROINTESTINAL: The abdomen is mildly distended. There is mild epigastric tenderness to palpation but no guarding rigidity. MUSCULOSKELETAL/EXTREMITIES: There is no evidence of gross deformity full range of motion is noted in the hips and shoulders. SKIN: Skin was warm and dry. Pedal edema was noted bilaterally. NEUROLOGIC: Patient is awake alert and oriented x3. Gait was steady. MEDICAL DECISION MAKING: The patient is a 73-year-old female who presented to the emergency department for epigastric pain. The patient states over the last few evenings she has had epigastric pain. It did radiate into her chest. She told her family members about this and she was brought to the emergency department for further evaluat ion. I discussed patient's laboratory and radiographic studies with her. She was found to have signs of elevated troponin on laboratory studies. EKG showed no acute changes from previous. She was pain-free on my evaluation. I discussed the patient's laboratory and radiographic studies with the on-call [facility] [address] [facility] hospitalist. They have agreed to evaluate the patient in the emergency department for further management and disposition. Triage Nursing notes reviewed. Prior medical records reviewed Vital Signs: reviewed and remarkable for no significant abnormalities Differential diagnosis: Cardiac ischemia, aortic dissection, pulmonary embolism, pneumothorax, pneumonia, pericarditis, myocarditis, esophageal rupture, GERD, cholecystitis, pancreatitis, musculoskeletal, as well as other pathologies. ER treatment provided: See below Diagnostics interpreted by me: ECG: EKG was obtained in the emergency department. My interpretation is atrial fibrillation at 115 bpm. PVCs were noted. Poor R wave progression was noted. This was compared to a tracing from October 14, 2018. No changes were noted. Cardiac Monitoring: An order was placed for continuous cardiac monitoring. The monitor shows a rate of 92 bpm with atrial fibrillation. Laboratory studies: As stated above and show below. Imaging studies: See below. Radiographic imaging was reviewed by myself Consultation(s): I discussed this case with Dr Stratton. Past Med/Surg History Medical History CHF (congestive heart failure) COPD (chronic obstructive pulmonary disease) CRPS (complex regional pain syndrome) type I DVT (deep venous thrombosis) Fx. left wrist GERD (gastroesophageal reflux disease) Gouty arthritis of toe of right foot HTN (hypertension) HTN (hypertension) Pulmonary emboli Surgical History S/P ORIF (open reduction internal fixation) fracture Left wrist Stented coronary artery Family History Father Hypertension Social History Smoking Status: Never smoker Second Hand Exposure: No; Do You Dip or Chew Tobacco: No; Tobacco Cessation Education Requested by Patient: No Hx Alcohol Use: No Hx Substance Use: No Preferred Language: Irish Communication Ability: Effective Credit Risk Manager Required: No Beliefs That Will Affect Care: None marital status: Current Living Situation: Alone and Family current occupational status: retired Other Information That Helps Us Care for You: No Feels Safe at Home: Yes Safety Concerns: Feels Safe At This Time Assistive Devices: None Allergies Allergies Allergy/AdvReac Type Severity Reaction Status Date / Time rivaroxaban AdvReac Mild stomach Verified 09/30/22 12:48 upset Home Meds Previous Rx's Medication Instructions Recorded aspirin 81 mg tablet,delayed 81 mg PO DAILY #90 tabs 10/15/18 release (Ecotrin Low Strength) diltiazem HCl 240 mg capsule,24 240 mg PO DAILY #90 caps 09/30/22 hr,extended release Results & Data (ED) Vital Signs Vital Signs - 24 hr 03/08/23 15:13 03/08/23 17:13 03/08/23 17:13 Temperature 36.7 C Temperature Source Temporal Artery Scan Pulse Rate 107 H Pulse Rate [Left Apical] 110 H Respiratory Rate 18 17 Respiratory Effort / Characteristics Non-Labored Respiratory Depth Normal Blood Pressure 112/73 Blood Pressure [Right Arm] 130/89 Blood Pressure Mean 86 Blood Pressure Mean [Right Arm] 102 Pulse Oximetry 96 95 95 Oxygen Delivery Method Room Air Room Air Room Air Oxygen Flow Rate 0 Sepsis Recent Fever Within 48 Hours No Sepsis New/Unexplained Change in Mental Status No Sepsis Action Taken by Nursing No Action Required 03/08/23 17:18 03/08/23 17:30 Temperature Temperature Source Pulse Rate 121 H 108 H Pulse Rate [Left Apical] Respiratory Rate 24 Respiratory Effort / Characteristics Respiratory Depth Blood Pressure 109/81 Blood Pressure [Right Arm] Blood Pressure Mean 90 Blood Pressure Mean [Right Arm] Pulse Oximetry 95 Oxygen Delivery Method Room Air Oxygen Flow Rate Sepsis Recent Fever Within 48 Hours Sepsis New/Unexplained Change in Mental Status Sepsis Action Taken by Half-Way Medications Current Medication List: was personally reviewed by me Laboratory Data Attestation: I reviewed the patient's lab results. 03/08/23 15:30 03/08/23 15:30 Lab Results 03/08/23 03/08/23 03/08/23 Range/Units 15:30 15:30 15:30 WBC 8.92 (4.8-10.8) K/ul RBC 4.67 (4.20-5.40) M/uL Hgb 14.0 (12.0-16.0) g/dl Hct 43.1 (37.0-47.0) % MCV 92.3 (80.0-100.0) fL MCH 30.0 (25.0-34.0) pg MCHC 32.5 (32.0-36.0) g/dL RDW Std Deviation 44.8 (36.4-46.3) fL RDW Coeff of Virgil 13.3 (11.5-14.5) % Plt Count 204 (130-400) K/uL MPV 10.5 (9.4-12.4) fL Immature Gran % (Auto) 0.3 % Neut % (Auto) 67.9 % Lymph % (Auto) 23.5 % [place] % (Auto) 7.6 % Eos % (Auto) 0.3 % Baso % (Auto) 0.4 % Neut # (Auto) 6.04 (1.40-6.50) K/uL Lymph # (Auto) 2.10 (1.20-3.40) K/uL [place] # (Auto) 0.68 H (0.11-0.59) K/uL Eos # (Auto) 0.03 (0.00-0.50) K/uL Baso # (Auto) 0.04 (0.00-0.20) K/uL Immature Gran # (Auto) 0.03 (0.01-0.20) K/uL PT 12.1 H (9.0-12.0) Seconds INR 1.1 (0.9-1.1) APTT 24.1 (21.0-31.0) Seconds PTT Ratio 0.9 Sodium 140 (136-145) mmol/L Potassium 3.9 (3.5-5.1) mmol/L Chloride 103 (98-107) mmol/L Carbon Dioxide 29 (21-32) mmol/L Anion Gap 8 (3-11) BUN 16 (6-23) mg/dl Creatinine 1.01 (0.6-1.2) mg/dl Est Cr Clr Drug Dosing 49.4 ml/min Est GFR ( Amer) 63.1 ml/min Est GFR (Non-Af Amer) 54.4 ml/min BUN/Creatinine Ratio 15.8 (10-20) Glucose 132 H (70-99(Fasting)) mg/dl Calcium 9.1 (8.6-10.3) mg/dl Total Bilirubin 0.8 (0.2-1.0) mg/dl AST 13 (13-39) U/L ALT 9 (7-52) U/L Alkaline Phosphatase 100 (34-104) U/L Troponin I High Sens 122.5 H* (0-14) pg/ml Total Protein 7.4 (6.0-8.3) gm/dl Albumin 3.6 (3.4-5.0) gm/dl Globulin 3.8 (2.5-4.0) gm/dl Albumin/Globulin Ratio 0.9 (0.9-2) Lipase (11-82) U/L 03/08/ Range/Units 17:23 WBC (4.8-10.8) K/ul RBC (4.20-5.40) M/uL Hgb (12.0-16.0) g/dl Hct (37.0-47.0) % MCV (80.0-100.0) fL MCH (25.0-34.0) pg MCHC (32.0-36.0) g/dL RDW Std Deviation (36.4-46.3) fL RDW Coeff of Virgil (11.5-14.5) % Plt Count (130-400) K/uL MPV (9.4-12.4) fL Immature Gran % (Auto) % Neut % (Auto) % Lymph % (Auto) % [place] % (Auto) % Eos % (Auto) % Baso % (Auto) % Neut # (Auto) (1.40-6.50) K/uL Lymph # (Auto) (1.20-3.40) K/uL [place] # (Auto) (0.11-0.59) K/uL Eos # (Auto) (0.00-0.50) K/uL Baso # (Auto) (0.00-0.20) K/uL Immature Gran # (Auto) (0.01-0.20) K/uL PT (9.0-12.0) Seconds INR (0.9-1.1) APTT (21.0-31.0) Seconds PTT Ratio Sodium (136-145) mmol/L Potassium (3.5-5.1) mmol/L Chloride (98-107) mmol/L Carbon Dioxide (21-32) mmol/L Anion Gap (3-11) BUN (6-23) mg/dl Creatinine (0.6-1.2) mg/dl Est Cr Clr Drug Dosing ml/min Est GFR ( Amer) ml/min Est GFR (Non-Af Amer) ml/min BUN/Creatinine Ratio (10-20) Glucose (70-99(Fasting)) mg/dl Calcium (8.6-10.3) mg/dl Total Bilirubin (0.2-1.0) mg/dl AST (13-39) U/L ALT (7-52) U/L Alkaline Phosphatase (34-104) U/L Troponin I High Sens 128.1 H* (0-14) pg/ml Total Protein (6.0-8.3) gm/dl Albumin (3.4-5.0) gm/dl Globulin (2.5-4.0) gm/dl Albumin/Globulin Ratio (0.9-2) Lipase 15 (11-82) U/L Administered Medications Lactated Ringer's (Lr) 1,000 mls @ 100 mls/hr IV .Q10H MANJIT Stop: 03/09/23 04:44 Last Admin: 03/08/23 18:58 Dose: 100 mls/hr Documented By: MICKEY Heparin Sodium/Dextrose (Heparin Sodium/Dextrose) 25,000 units in 500 mls @ 16 mls/hr IV .Q24H MANJIT; Protocol Stop: 04/07/23 19:29 Last Admin: 03/08/23 19:42 Dose: 800 units/hr, 16 mls/hr Documented By: BRIAN Co-signed By: ALMA Metoprolol Tartrate (Metoprolol Tartrate 25 Mg Tab) 25 mg PO BID MANJIT Stop: 04/07/23 21:14 Last Admin: 03/08/23 22:07 Dose: 25 mg Documented By: AM Discontinued Medications Al Hydrox/Mg Hydrox/Simethicone (Aluminum/Magnesium Susp 30 Ml Udc) 30 ml PO NOW STA Stop: 03/08/23 17:06 Last Admin: 03/08/23 17:15 Dose: 30 ml Documented By: MICKEY Aspirin (Aspirin Chew 324 Mg) 324 mg PO NOW STA Stop: 03/08/23 17:06 Last Admin: 03/08/23 17:15 Dose: 324 mg Documented By: MICKEY Diltiazem HCl (Diltiazem Hcl 120 Mg Capcr) 120 mg PO NOW STA Stop: 03/08/23 19:03 Last Admin: 03/08/23 19:43 Dose: 120 mg Documented By: BRIAN Heparin Sodium (Porcine) (Heparin Sod (Porcine) 1000 Unit/Ml) 4,000 units IV NOW ONE Stop: 03/08/23 19:31 Last Admin: 03/08/23 19:42 Dose: 4,000 units Documented By: BRIAN Co-signed By: ALMA Sodium Chloride (Nss 1000ml) 500 mls @ 999 mls/hr IV .Q31M ONE Stop: 03/08/23 17:44 Last Infusion: 03/08/23 18:27 Dose: 0 mls/hr Documented By: Admin: 03/08/23 17:19 Dose: 999 mls/hr Documented By: MICKEY Heparin Sodium/Dextrose (Heparin Sodium/Dextrose) 25,000 units in 500 mls @ 23 mls/hr IV .[id number] [facility]; Protocol Stop: 04/07/23 18:44 Last Admin: 03/08/23 18:47 Dose: 1,150 units/hr, 23 mls/hr Documented By: MICKEY Co-signed By: BRENDA Famotidine 20 mg/ Syringe 5 mls @ 2.5 mls/min IV NOW STA Stop: 03/08/23 18:40 Last Admin: 03/08/23 18:58 Dose: 2.5 mls/min Documented By: MICKEY Pantoprazole Sodium (Pantoprazole 40 Mg Tab) 40 mg PO NOW STA Stop: 03/08/23 17:06 Last Admin: 03/08/23 17:15 Dose: 40 mg Documented By: MICKEY Imaging Data Attestation: I personally reviewed and interpreted this imaging study as follows: My Impression: 1 view chest x-ray was obtained in the emergency department. My interpretation is no free air or definite infiltrate, final report below. Radiologist's Impression: Chest X-Ray 03/08/23 15:15 XR chest 1V not portable CLINICAL HISTORY: Chest pain, nonspecific COMPARISON STUDY: Chest CT February 18, 2017. Chest radiograph October 13, 2018. FINDINGS: Lung volumes are normal. Lungs are clear. There is no pneumothorax or pleural effusion. Marked cardiomegaly is unchanged. Mediastinal contours are normal. There is no evidence for pulmonary edema. IMPRESSION: No acute cardiopulmonary findings. Stable cardiomegaly. ACT 112: Negative or not required by law. Electronically signed by: Joby Quintanilla M.D. 03/08/2023 4:30 PM Discharge Plan Visit Data Chief Complaint: Shortness of Breath/Dyspnea Stated Complaint: SHORTNESS OF BREATH, BILAT LOWER LEG EDEMA ED Provider: Johnny Bernabe Discharge Problem: Acute non-ST elevation myocardial infarction (NSTEMI), HTN (hypertension), Abdominal pain, epigastric Patient Disposition: Admitted As Inpatient Discharge Instructions Interventions: ED Discharge Assessment Last Done: 03/08/23 19:52 HTN (hypertension) Qualifiers: Hypertension type: unspecified Qualified Code(s): I10 - Essential (primary) hypertension
--- NOTE | 2023-03-08 17:38 | Electrocardiogram Report ---
Test Reason : Blood Pressure : / mmHG Vent. Rate : 115 BPM Atrial Rate : 000 BPM P-R Int : 000 ms QRS Dur : 068 ms QT Int : 314 ms P-R-T Axes : 000 -14 -42 degrees QTc Int : 434 ms Atrial fibrillation with rapid ventricular response with premature ventricular or aberrantly conducte d complexes possible Inferior infarct , age undetermined Poor R wave progression, consider anterior RI vs. lead placement vs. LVH Abnormal ECG When compared with ECG of 14-OCT-2018 16:22, ST now depressed in Lateral leads Nonspecific T wave abnormality has replaced inverted T waves in Anterolateral leads Confirmed by Armando Garcia ([id number]) on 03/08/2023 5:38:34 PM Referred By: Confirmed By:Jacky Garcia
--- NOTE | 2023-03-08 18:02 | History & Physical Report ---
Date of Service March 08, 2023 Assessment & Plan (1) Chest pain: Plan: -Admit to the PCU on tele -Currently stable -Patient has been having substernal epigastric/substernal chest discomfort for 3-4 days -Patient is a poor historian and non-compliant, difficult to determine etiology at this time -Initial high sen trop elevated at 122 with 2 hour repeat at 128, patient does have ST depressions with T-wave inversions in the lateral leads -Patient was noted to be in afib RVR on arrival, she has been non-complaint with Diltiazem for some time, she may have been misinterpreting RVR symptoms? -Cannot rule out PE at this time as she has a previous history and is not anticoagulated. She is tachycardic here, but has also not been compliant with prescribed Diltiazem; she has been hemodynamically stable and stable on RA >Will obtain BL LE venous dopplers for further evaluation -S/P 324 mg Aspirin in the ED -Will start a low dose heparin drip with bolus -Continue to trend trop q6h moving forward, TTE and cardiology consult in the AM -Will continue IV famotidine and pantoprazole for possible gastritis/esophagitis -Heparin drip for DVT PPX -Will allow her to eat until midnight in case of computer lab assistant tomorrow -AM CBC, CMP, Mag, PT/INR/Aptt, A1C, and lipid panel (2) Atrial fibrillation: Plan: -Patient has a known history of persistent afib -Noted to be in afib RVR with HR in the 120's on arrival -Will restart diltiazem but at reduced dose of 120 mg instead of 240 mg as she has not been taking it -Patient has declined anticoagulation for stroke risk reduction, would strongly encourage continued discussions prior to discharge -Continue to monitor on tele (3) Elevated troponin: Plan: -See chest pain (4) Coronary artery disease: Plan: -Has been taking 81 mg Aspirin daily -S/P 324 mg Aspirin in the ED -LAD stent placed in 2019 -Will start Rosuvastatin today at initially prescribed dose of 10 mg daily (5) COPD (chronic obstructive pulmonary disease): Plan: -Stable on RA -Not on outpatient therpay -Denies previous tobacco history -Will order prn levalbuterol to try and prevent ongoing tachycardia (6) HTN (hypertension): Plan: -Currently stable -Monitor while restarting diltiazem (7) Leg swelling: Plan: -Will obtain BL LE venous dopplers with her hx of DVT and PE in the past Plan The patient was discussed with Dr. Stratton at the time of the admission History of Present Illness Chief Complaint: Epigastric pain Primary Care Provider: Patric Dee MD Leann is a 73 year old female with a PMH significant for moderate mitral regurgitation, permanent atrial fibrillation (has declined anticoagulation multiple), history of VTE, hypertension, GERD, COPD, and coronary artery disease post PCI with SAMANTHA to LAD , complex regional pain syndrome Type 1, COPD, GERD, and previous DVT and PE who presented to the [facility] ED on 03/08 with complains of multiple days of epigastric pain/heartburn. In the ED the patient was noted to be tachycardic with HR in the 120's but otherwise stable. Labs were significant for an initial high sen trop of 122. Chest xray was read as "No acute cardiopulmonary findings. Stable cardiomegaly.". ECG was concerning for ST depression and t-wave inversions in the lateral leads. Prior to admission the patient was given 324 mg Aspirin, 40 mg PO pantoprazole, 500 mL NSS,and a dose of maalox. At the time of the exam the patient was lying in bed in no acute distress with her family sitting bedside, history was taken from all. The patient is not the most reliable historian as her family corrects her throughout the exam. She started to develop substernal/epigastric pain approximately 4 days ago. She describes the pain as a burning sensation, at it's most severe it is a 10/10. When asked, she states that this pain feels similar to her symptoms in 2019 when she required a heart cath and stent placement, "but worse". She initially tried pepto bismol and christianne seltzer over the past few days without relief. Her daughter got her famotidine last night and this seems to improve her symptoms a little. When asked, she states that she has only been taking a daily aspirin. She never picked up her atorvastatin that was previously prescribed for her. She has not been taking her diltiazem or omeprazole as her PCP did not renew the prescriptions as she has not been seen in their office for some time. Her family states that she is very non-compliant with medications. We discussed starting a heparin drip at this time and the patient is in agreement. We discussed code status, the patient wishes to be a full code and for her son to make medical decisions for her if she cannot make them herself. Please refer to Dr. Stratton's attestation for any changes to the treatment plan Allergies Allergy/AdvReac Type Severity Reaction Status Date / Time rivaroxaban AdvReac Mild stomach Verified 09/30/22 12:48 upset Home Medications Medication Instructions Recorded Confirmed Type aspirin 81 mg tablet,delayed 81 mg PO DAILY #90 tabs 10/15/18 03/08/23 Rx release (Ecotrin Low Strength) diltiazem HCl 240 mg capsule,24 240 mg PO DAILY #90 caps 09/30/22 03/08/23 Rx hr,extended release Past Med/Surg History Medical History CHF (congestive heart failure) COPD (chronic obstructive pulmonary disease) CRPS (complex regional pain syndrome) type I DVT (deep venous thrombosis) Fx. left wrist GERD (gastroesophageal reflux disease) Gouty arthritis of toe of right foot HTN (hypertension) HTN (hypertension) Pulmonary emboli Surgical History S/P ORIF (open reduction internal fixation) fracture Left wrist Stented coronary artery Family History Father Hypertension Social History Smoking Status: Never smoker Second Hand Exposure: No; Do You Dip or Chew Tobacco: No; Tobacco Cessation Education Requested by Patient: No Hx Alcohol Use: No Hx Substance Use: No Preferred Language: Italian Communication Ability: Effective Councilor Required: No Beliefs That Will Affect Care: None marital status: Current Living Situation: Alone and Family current occupational status: retired Other Information That Helps Us Care for You: No Feels Safe at Home: Yes Safety Concerns: Feels Safe At This Time Assistive Devices: None Physical Exam Physical Exam: Physical Exam: General: In no acute distress, stated age, chronically ill appearing HEENT: Normocephalic, atraumatic, no scleral icterus, pupils around round, symmetrical, and reactive to light, moist mucus membranes, trachea midline, no thyromegaly Chest/Pulm: No respiratory distress, symmetrical chest expansion, clear breath sounds throughout Cardiac: irregular rate and rhythm, no murmurs noted Abdomen: Negative for ascites and bruising, normoactive bowel sounds, tender to palpation in the epigastric region Musculoskeletal: Symmetrical and without signs of acute trauma, upper and lower extremities with full ROM, no atrophy, spasticity, or flaccidity Extremities: Radial, dorsalis pedis, and posterior tibial pulses are intact and symmetrical, 1+ edema noted in the BL LE's Skin: Warm, dry, no rashes , lesions, or scars noted Neuro: Alert and oriented to person, place, month, year, and president, no focal defects, no tremors noted Psych: No acute distress, calm and cooperative during the exam Results & Data Results & Data Vital Signs (Past 12 Hours) Vital Signs Temp Pulse Pulse Resp BP BP Pulse Ox 03/08/23 17:18 121 H 03/08/23 17:13 110 H 17 130/89 95 03/08/23 17:13 95 03/08/23 15:13 36.7 C 107 H 18 112/73 96 O2 Del Method O2 Flow Rate 03/08/23 17:18 03/08/23 17:13 Room Air 03/08/23 17:13 Room Air 0 03/08/23 15:13 Room Air Laboratory Results Abnormal lab results 03/08/23 03/08/23 03/08/23 Range/Units 15:30 15:30 15:30 [place] # (Auto) 0.68 H (0.11-0.59) K/uL PT 12.1 H (9.0-12.0) Seconds Glucose 132 H (70-99(Fasting)) mg/dl Troponin I High Sens 122.5 H* (0-14) pg/ml 03/08/23 Range/Units 17:23 [place] # (Auto) (0.11-0.59) K/uL PT (9.0-12.0) Seconds Glucose (70-99(Fasting)) mg/dl Troponin I High Sens 128.1 H* (0-14) pg/ml Diagnostic Findings Chest X-Ray 03/08/23 15:15 XR chest 1V not portable CLINICAL HISTORY: Chest pain, nonspecific COMPARISON STUDY: Chest CT February 18, 2017. Chest radiograph October 13, 2018. FINDINGS: Lung volumes are normal. Lungs are clear. There is no pneumothorax or pleural effusion. Marked cardiomegaly is unchanged. Mediastinal contours are normal. There is no evidence for pulmonary edema. IMPRESSION: No acute cardiopulmonary findings. Stable cardiomegaly. ACT 112: Negative or not required by law. Electronically signed by: Joby Quintanilla M.D. 03/08/2023 4:30 PM ECG Additional Comments: Atrial fibrillation with rapid ventricular response with premature ventricular or aberrantly conducted complexes possible Inferior infarct , age undetermined Poor R wave progression, consider anterior ID vs. lead placement vs. LVH Abnormal ECG When compared with ECG of 14-OCT-2018 16:22, ST now depressed in Lateral leads Nonspecific T wave abnormality has replaced inverted T waves in Anterolateral leads Confirmed by Armando Garcia ([id number]) on 03/08/2023 5:38:34 PM Code Status & VTE Plan Code Status Full code VTE Prophylaxis Plan VTE Prophylaxis will be ordered: Yes Supervising Physician Co-Signing Physician Notes I personally saw and examined the patient. I verified all wolf points and agree with Omar Jacob PA-C with the following exceptions and/or additions: 73 year old female who presents to the ER with chest pain. Associated belching. Constant for last 3-4 days but also some exertional component. Main reason she came in today was due to pushing by her family. She actually feels her symptoms are a little better today than yesterday. O/E HS RRR, no murmurs, Chest CTAB, Abdo SNT A/P Unclear if ACS vs. gastritis with elevated troponin due to atrial fibrillation in setting or probable coronary artery disease - patient non-compliant with medications. Given elevated troponin she warrants cardiology evaluation for further stress testing vs. cardiac catheterization. Heparin warranted irregardless given atrial fibrillation. TTE in AM. Will switch diltiazem to metoprolol as she is non-compliant with diltiazem any way. Gastritis/Heartburn - continue pantoprazole 40mg PO daily PG Care Time/CCT Total # of Minutes Spent Total Time Spent with Patient: Total time spent is greater than 50% in coordination of care (as documented) at patient's floor/unit and/or counseling patient: Coding [place] [id number] INT INP/OBS CARE 3/75MIN Patient Type Established Medical Decision Making High Complexity Diagnoses Chest pain R07.9 Atrial fibrillation I48.91 Elevated troponin R77.8 Coronary artery disease I25.10 COPD (chronic obstructive pulmonary disease) J44.9 HTN (hypertension) I10 Leg swelling M79.89
[2023-03-08] MEDS ORDERED: Heparin IV Adult Wt-Based Standard *NO* Bolus Protocol IV ONE (18:28)
[2023-03-08 18:31] LABS: Troponin I High Sensitivity 128.1 pg/ml (0-14)
[2023-03-08] MEDS ORDERED: FAMOTIDINE 20 MG in SYRINGE 3 ML IV STA (18:39)
[2023-03-08] MEDS ORDERED: LACTATED RINGER'S 1,000 ML IV SCH (18:45)
[2023-03-08] MEDS ORDERED: HEPARIN SODIUM/DEXTROSE 25,000 UNITS/500 ML BAG IV SCH (18:45)
[2023-03-08] MEDS ORDERED: dilTIAZem HCL 120 MG CAPCR PO STA (19:02)
[2023-03-08] MEDS ORDERED: Heparin IV Adult Wt-Based Low-Dose WITH Bolus Protocol IV SCH (19:15)
[2023-03-08] MEDS ORDERED: LEVALBUTEROL HCL 0.63 MG/3 ML NEB NEB PRN (19:25)
[2023-03-08] MEDS ORDERED: HEPARIN SOD (PORCINE) 1000 UNIT/ML IV ONE (19:30)
[2023-03-08] MEDS: HEPARIN SODIUM/DEXTROSE 25,000 UNITS/500 ML BAG IV SCH (19:42)
--- NOTE | 2023-03-08 20:44 | Ultrasound Report ---
ULTRASOUND BILATERAL LOWER EXTREMITY VENOUS CLINICAL HISTORY: Lower extremity edema. Dyspnea COMPARISON STUDY: Left lower extremity venous ultrasound dated 02/18/2017. TECHNIQUE: Real-time, grayscale, and color Doppler sonography of the deep veins of the right and left lower extremity was performed from the inguinal crease to the calf. Compression and augmentation wer e utilized. FINDINGS: Right lower extremity: There is no sonographic evidence of deep venous thrombosis in the right lower extremity. The common femoral, superficial femoral, and popliteal veins are patent and normally compr essible. The greater saphenous vein and the profunda femoris vein at the junction with the common fem oral vein are clear. The visualized calf veins are patent. Left lower extremity: There is no sonographic evidence of acute deep venous thrombosis in the left lo wer extremity. A small amount of chronic nonocclusive thrombus is seen within the distal superficial femoral and popliteal veins. The common femoral, superficial femoral, and popliteal veins are otherwi se patent and normally compressible. The greater saphenous vein and the profunda femoris vein at the junction with the common femoral vein are clear. The visualized calf veins are patent. IMPRESSION: 1. There is no sonographic evidence of acute deep venous thrombosis in the right or left lower extrem ity. 2. There is a small amount of chronic thrombus seen in the left lower extremity as above. ACT 112: Negative or not required by law. Electronically signed by: Inder Moe M.D. 03/08/2023 8:42 PM
[2023-03-08] MEDS: METOPROLOL TARTRATE 25 MG TAB PO SCH (22:07)
[2023-03-09 02:14] LABS: Partial Thromboplastin Ratio 1.3; Partial Thromboplastin Time 37.6 Seconds (21.0-31.0)
[2023-03-09] MEDS: ACETAMINOPHEN 325 MG TAB PO PRN ×2 (02:35→17:04)
[2023-03-09 05:20] LABS: Basophils # (auto) 0.03 K/uL (0.00-0.20); Basophils % (auto) 0.4 %; Eosinophils # (auto) 0.09 K/uL (0.00-0.50); Eosinophils % (auto) 1.3 %; Hematocrit (blood only) 36.9 % (37.0-47.0); Hemoglobin 11.9 g/dl (12.0-16.0); Immature Granulocytes # (auto) 0.02 K/uL (0.01-0.20); Immature Granulocytes % (auto) 0.3 %; Lymphocytes # (auto) 2.17 K/uL (1.20-3.40); Lymphocytes % (auto) 31.8 %; Mean Corpuscular Hgb Conc 32.2 g/dL (32.0-36.0); Mean Corpuscular Volume 92.9 fL (80.0-100.0); Mean Platelet Volume 10.5 fL (9.4-12.4); Monocytes # (auto) 0.63 K/uL (0.11-0.59); Monocytes % (auto) 9.2 %; Neutrophils # (auto) 3.88 K/uL (1.40-6.50); Platelet Count 159 K/uL (130-400); RDW Coefficient of Variation 13.2 % (11.5-14.5); RDW Standard Deviation 45.1 fL (36.4-46.3); Red Blood Count 3.97 M/uL (4.20-5.40); White Blood Count 6.82 K/ul (4.8-10.8)
[2023-03-09 05:37] LABS: Albumin Level 3.1 gm/dl (3.4-5.0); BUN Creatinine Ratio 19.4 (10-20); Bilirubin,Total 0.8 mg/dl (0.2-1.0); Calcium 8.3 mg/dl (8.6-10.3); Chol HDL Ratio 4.8 (0-5); Creatinine Clr Calc Pharmacy 70.8 ml/min; Est GFR (African American) 94.9 ml/min; Est GFR (Non-African American) 81.9 ml/min; Globulin 3.1 gm/dl (2.5-4.0); Magnesium 1.8 mg/dl (1.7-2.4); Potassium 3.7 mmol/L (3.5-5.1); Total Protein 6.2 gm/dl (6.0-8.3)
[2023-03-09 05:47] LABS: Troponin I High Sensitivity 113.8 pg/ml (0-14)
[2023-03-09 05:48] LABS: Partial Thromboplastin Ratio 1.2; Partial Thromboplastin Time 33.7 Seconds (21.0-31.0)
[2023-03-09 07:44] LABS: Estimated Average Glucose 120 mg/dl; Hemoglobin A1C 5.8 % (4.5-5.6)
[2023-03-09] MEDS: PANTOprazole 40 MG TAB PO SCH (08:42)
[2023-03-09] MEDS: METOPROLOL TARTRATE 25 MG TAB PO SCH ×2 (08:42→20:07)
[2023-03-09] MEDS: ROSUVASTATIN CALCIUM 10 MG TAB PO SCH (08:42)
[2023-03-09] MEDS: ASPIRIN 81 MG ECTAB PO SCH (08:43)
[2023-03-09] MEDS ORDERED: dilTIAZem HCL 120 MG CAPCR PO SCH (09:00)
[2023-03-09 09:07] LABS: Partial Thromboplastin Ratio 1.2; Partial Thromboplastin Time 33.9 Seconds (21.0-31.0)
[2023-03-09] MEDS ORDERED: HEPARIN SOD (PORCINE) 1000 UNIT/ML IV ONE (09:30)
--- NOTE | 2023-03-09 12:07 | Cardiology Consultation ---
Date of Consultation March 09, 2023 Assessment & Plan (1) Exertional angina: (2) Elevated troponin: (3) Coronary artery disease: (4) Stented coronary artery: (5) HTN (hypertension): (6) Dyslipidemia: (7) Atrial fibrillation: (8) Mitral regurgitation: Plan ASSESSMENT/PLAN: 1. Angina: Symptoms are concerning for angina (elevated troponin, history of CAD, exertional worsening, and apical wall motion abnormality on echo). Currently chest pain-free. Recommend cardiac catheterization. Cardiac catheterization is not emergent as she is chest pain-free. Continue heparin drip. Continue aspirin 81 mg daily. Continue beta-corrine and statin therapy. Risks and benefits were discussed with her. Her primary perioperative educator, Dr. Mas, to assess tomorrow. 2. CAD s/p LAD PCI: Symptoms concerning for angina as above. Continue medical therapy as above. 3. Elevated troponin: As above. 4. Hypertension: Blood pressure has mostly been elevated. We will start low- dose LEATHA inhibitor. 5. Dyslipidemia: LDL elevated in the setting of CAD. Has not been taking statin at home. Apparently did not tolerate atorvastatin in the past. Agree with rosuvastatin and if tolerated, recommend high intensity statin therapy. 6. Atrial fibrillation: Permanent. Heart rate is reasonably controlled on low- dose beta-corrine. She had noted edema with diltiazem which reportedly improved after discontinuing. Continue beta-corrine as tolerated. She has declined anticoagulation therapy for stroke risk reduction, despite recommendations in the past according to records. She states that she did not tolerate anticoagulation therapy, but denies significant bleeding. Currently on heparin drip. 7. Mitral regurgitation: Nonsevere. Continue to monitor. 8. Disposition: Cardiology will continue to follow. Dr. Mas to resume her cardiology care tomorrow. N.p.o. after midnight for possible cardiac catheterization. Patient care communicated with primary hospitalist, Dr. Hart. Highly complex medical issues. Thank you for allowing me to participate in the care of your patient. Please call for any other questions or concerns. Sincerely, Brayan Hein M.D. History of Present Illness Reason for Consultation: Chest pain and elevated trop Requesting Physician: Omar Jacob Attending Physician: Viktoria Hart MD History of Present Illness Ms. Chilel is a pleasant 73-year-old female with a history significant for CAD s/p LAD PCI, COPD, mitral regurgitation, permanent atrial fibrillation, left lower extremity DVT, pulmonary emboli, hypertension, dyslipidemia, and GERD. Her primary perioperative educator is Dr. Mas. She was admitted on 03/08/2023 with chest discomfort. She refers to her chest discomfort as "indigestion." She describes it as a burning sensation substernally that has been occurring intermittently all week. Symptoms improved and she lays down. She has been taking [place] and famotidine and believes that the famotidine has offered some benefit. She is a poor historian and some history is supplied by her multiple family members (grandchildren) who are present in the room. After further discussing, exertion exacerbated the chest discomfort and also dyspnea on exertion. She went to lunch yesterday with her grandchildren and she had to stop several times to catch her breath which is not usual for her. She denies any exacerbation of the chest discomfort with eating or food, but only with exertion. She has been chest pain-free since hospitalization. She denies shortness of breath during our visit today. She has orthopnea chronically and typically uses 4 pillows at home. She has edema which is chronic for years but it apparently increased over the past few months. Because of this, she is concerned that diltiazem was causing edema and she reports reaching out to cardiology office asking if she could hold diltiazem. She has been holding diltiazem since 02/24/2023 and believes that she felt better in general with decreased edema since stopping the medication. She has declined anticoagulation therapy stating that she has tried several of them and had intolerance to all of them. While here, her troponin has been elevated at 122, peaking at 128, and then trending downward. Prior cardiovascular studies: 1. Cardiac cath/PCI 10/14/18: Mid LAD 95%, 30-40% ostial circumflex, OM 20-30% proximal, dominant RCA 30% distal. PCI with 3.5 x 15 Xience Roselia postdilated with 3.75 NC 2. Echo 10/18/2022: Normal LV size and wall motion. EF 55 to 60%. Moderate biatrial dilation. Mild MR. Mild AI. RVSP 40-45. Review of systems: As above. Review of systems otherwise negative/unremarkable. Family history: Noncontributory. Social history: Denies smoking. 2 children, 4 grandchildren. She had multiple family members in the room, including her grandchildren and their significant others. Allergies Allergy/AdvReac Type Severity Reaction Status Date / Time rivaroxaban AdvReac Mild stomach Verified 09/30/22 12:48 upset Home Medications Medication Instructions Recorded Confirmed Type aspirin 81 mg tablet,delayed 81 mg PO DAILY #90 tabs 10/15/18 03/08/23 Rx release (Ecotrin Low Strength) diltiazem HCl 240 mg capsule,24 240 mg PO DAILY #90 caps 09/30/22 03/08/23 Rx hr,extended release Patient History Medical History (Updated 03/09/23 @ 16:47 by Dwight Hein MD) Atrial fibrillation CHF (congestive heart failure) COPD (chronic obstructive pulmonary disease) Coronary artery disease CRPS (complex regional pain syndrome) type I DVT (deep venous thrombosis) Dyslipidemia Fx. left wrist GERD (gastroesophageal reflux disease) Gouty arthritis of toe of right foot HTN (hypertension) Pulmonary emboli Surgical History S/P ORIF (open reduction internal fixation) fracture Left wrist Stented coronary artery Family History Father Hypertension Social History Smoking Status: Never smoker Second Hand Exposure: No; Do You Dip or Chew Tobacco: No; Tobacco Cessation Education Requested by Patient: No Hx Alcohol Use: No Hx Substance Use: No Preferred Language: Bur[place]ian Communication Ability: Effective Scientist Required: No Beliefs That Will Affect Care: None marital status: Current Living Situation: Alone and Family current occupational status: retired Other Information That Helps Us Care for You: No Feels Safe at Home: Yes Safety Concerns: Feels Safe At This Time Assistive Devices: None Physical Exam Physical Exam: Gen.: No acute distress. Alert. HEENT: Anicteric sclera. Neck: No JVD. No bruits. Normal carotid upstrokes bilaterally. Cardiac: No ventricular heave. Irregularly irregular. Normal rate. Normal S1- S2. 1/6 systolic murmur. Pulmonary: Decreased breath sounds bilaterally, but otherwise clear to auscultation bilaterally without wheezes, rales, or rhonchi. Abdomen: Soft, nontender, nondistended, with normoactive bowel sounds. No bruits noted. Extremities: 2+ radial pulses bilaterally. 2+ posterior tibialis pulses bilaterally. Trace bilateral lower extremity edema. No cyanosis. Results & Data Vital Signs (Past 12 Hours) Vital Signs Temp Pulse Resp BP Pulse Ox O2 Del Method 03/09/23 11:11 36.6 C 85 19 152/86 H 95 Room Air 03/09/23 07:37 36.6 C 82 19 148/85 H 93 Room Air 03/09/23 04:04 36.4 C L 81 18 146/90 H 96 Room Air Intake & Output 03/07/23 03/08/23 03/09/23 03/10/23 06:59 06:59 06:59 06:59 Intake Total 2280.416 / 2280.416 112.767 / 112.767 Output Total 975 / 975 200 / 200 Balance 1305.416 / 1305.416 -87.233 / -87.233 Weight 196 lb 10.437 oz Laboratory Results Laboratory Results - last 24 hr 03/08/23 03/08/23 03/09/23 17:23 22:40 01:17 WBC RBC Hgb Hct MCV MCH MCHC RDW Std Deviation RDW Coeff of Virgil Plt Count MPV Immature Gran % (Auto) Neut % (Auto) Lymph % (Auto) Fleming % (Auto) Eos % (Auto) Baso % (Auto) Neut # (Auto) Lymph # (Auto) Fleming # (Auto) Eos # (Auto) Baso # (Auto) Immature Gran # (Auto) APTT 37.6 H PTT Ratio 1.3 Sodium Potassium Chloride Carbon Dioxide Anion Gap BUN Creatinine Est Cr Clr Drug Dosing Est GFR ( Amer) Est GFR (Non-Af Amer) BUN/Creatinine Ratio Glucose Estimat Average Glucose Hemoglobin A1c Calcium Magnesium Total Bilirubin AST ALT Alkaline Phosphatase Troponin I High Sens 128.1 H* 118.8 H* Total Protein Albumin Globulin Albumin/Globulin Ratio Triglycerides Cholesterol LDL Cholesterol, Calc VLDL Cholesterol, Calc HDL Cholesterol Cholesterol/HDL Ratio Lipase 15 03/09/23 03/09/23 03/09/23 05:03 05:03 05:03 WBC 6.82 RBC 3.97 L Hgb 11.9 L Hct 36.9 L MCV 92.9 MCH 30.0 MCHC 32.2 RDW Std Deviation 45.1 RDW Coeff of Virgil 13.2 Plt Count 159 MPV 10.5 Immature Gran % (Auto) 0.3 Neut % (Auto) 57.0 Lymph % (Auto) 31.8 Fleming % (Auto) 9.2 Eos % (Auto) 1.3 Baso % (Auto) 0.4 Neut # (Auto) 3.88 Lymph # (Auto) 2.17 Fleming # (Auto) 0.63 H Eos # (Auto) 0.09 Baso # (Auto) 0.03 Immature Gran # (Auto) 0.02 APTT PTT Ratio Sodium 140 Potassium 3.7 Chloride 108 H Carbon Dioxide 27 Anion Gap 5 BUN 14 Creatinine 0.72 Est Cr Clr Drug Dosing 70.8 Est GFR ( Amer) 94.9 Est GFR (Non-Af Amer) 81.9 BUN/Creatinine Ratio 19.4 Glucose 99 Estimat Average Glucose 120 Hemoglobin A1c 5.8 H Calcium 8.3 L Magnesium 1.8 Total Bilirubin 0.8 AST 12 L ALT 7 Alkaline Phosphatase 77 Troponin I High Sens 113.8 H* Total Protein 6.2 Albumin 3.1 L Globulin 3.1 Albumin/Globulin Ratio 1.0 Triglycerides 95 Cholesterol 153 LDL Cholesterol, Calc 102 VLDL Cholesterol, Calc 19 HDL Cholesterol 32 Cholesterol/HDL Ratio 4.8 Lipase 03/09/23 03/09/23 03/09/23 05:03 08:47 10:52 WBC RBC Hgb Hct MCV MCH MCHC RDW Std Deviation RDW Coeff of [place]gil Plt Count MPV Immature Gran % (Auto) Neut % (Auto) Lymph % (Auto) Fleming % (Auto) Eos % (Auto) Baso % (Auto) Neut # (Auto) Lymph # (Auto) Fleming # (Auto) Eos # (Auto) Baso # (Auto) Immature Gran # (Auto) APTT 33.7 H 33.9 H PTT Ratio 1.2 1.2 Sodium Potassium Chloride Carbon Dioxide Anion Gap BUN Creatinine Est Cr Clr Drug Dosing Est GFR ( Amer) Est GFR (Non-Af Amer) BUN/Creatinine Ratio Glucose Estimat Average Glucose Hemoglobin A1c Calcium Magnesium Total Bilirubin AST ALT Alkaline Phosphatase Troponin I High Sens 94.4 H* D Total Protein Albumin Globulin Albumin/Globulin Ratio Triglycerides Cholesterol LDL Cholesterol, Calc VLDL Cholesterol, Calc HDL Cholesterol Cholesterol/HDL Ratio Lipase Diagnostic Findings ECHO 03/09/23: 1. Normal left ventricular size with mildly reduced systolic function. Estimated EF 45-50%. Mild global hypokinesis with more significant hypokinesis of the apex. No left ventricular hypertrophy. 2. Normal right ventricular size with mildly reduced systolic function. 3. Severe biatrial dilation. 4. Mild aortic regurgitation. 5. Moderate mitral regurgitation. 6. Moderate tricuspid regurgitation. 7. Mild pulmonary hypertension. Estimated RVSP 45 mmHg. 8. Compared to prior study on 10/18/2022, LV systolic function has mildly declined. Apical wall motion abnormality is now present. Labs reviewed and notable for elevated troponin, stable renal function, mild anemia, elevated LDL in the setting of CAD. Telemetry personally reviewed: Atrial fibrillation. Heart rate reasonably controlled. ECG personally reviewed 03/08/2023: A-fib 115 bpm. Nonspecific T wave abnormality. PVC versus aberrantly conducted complexes. Poor R wave progression. Echocardiogram reports reviewed as summarized. Cardiac cath report from 10/14/2018 reviewed. Venous Doppler 03/08/2023: Small amount of chronic thrombus seen in the left lower extremity. No evidence of acute DVT bilaterally. Chest x-ray 2622: No acute cardiopulmonary findings. Medications Administered Current Inpatient Medications Acetaminophen (Acetaminophen 325 Mg Tab) 650 mg PO Q4H PRN PRN Reason: pain or fever Stop: 04/08/23 01:14 Last Admin: 03/09/23 02:35 Dose: 650 mg Aspirin (Aspirin 81 Mg Ectab) 81 mg PO DAILY MANJIT Stop: 04/08/23 08:59 Last Admin: 03/09/23 08:43 Dose: 81 mg Heparin Sodium/Dextrose (Heparin Sodium/Dextrose) 25,000 units in 500 mls @ 20 mls/hr IV .Q24H MANJIT; Protocol Stop: 04/07/23 19:29 Last Titration: 03/09/23 09:10 Dose: 1,000 units/hr, 20 mls/hr Levalbuterol HCl (Levalbuterol Hcl 0.63 Mg/3 Ml Neb) 0.63 mg NEB Q6R PRN; Protocol PRN Reason: wheezing Stop: 04/08/23 00:59 Metoprolol Tartrate (Metoprolol Tartrate 25 Mg Tab) 25 mg PO BID MANJIT Stop: 04/07/23 21:14 Last Admin: 03/09/23 08:42 Dose: 25 mg Pantoprazole Sodium (Pantoprazole 40 Mg Tab) 40 mg PO DAILY MANJIT Stop: 04/08/23 08:59 Last Admin: 03/09/23 08:42 Dose: 40 mg Rosuvastatin Calcium (Rosuvastatin Calcium 10 Mg Tab) 10 mg PO DAILY MANJIT Stop: 04/08/23 08:59 Last Admin: 03/09/23 08:42 Dose: 10 mg PG Care Time/CCT Total # of Minutes Spent Total Time Spent with Patient: Total time spent is greater than 50% in coordination of care (as documented) at patient's floor/unit and/or counseling patient: Coding Level of Care Code 37895 INT INP/OBS CARE 3/75MIN Diagnoses Exertional angina I20.8 Elevated troponin R77.8 Coronary artery disease I25.10 Stented coronary artery Z95.5 HTN (hypertension) I10 Dyslipidemia E78.5 Atrial fibrillation I48.91 Mitral regurgitation I34.0
--- NOTE | 2023-03-09 12:08 | XCELERA ---
[id number]\[id number]
--- NOTE | 2023-03-09 16:44 | Hospitalist Progress Note ---
Date of Service March 09, 2023 Assessment & Plan (1) Chest pain: Plan: -Currently stable -Patient has been having substernal epigastric/substernal chest discomfort for 3-4 days -Patient is a poor historian and non-compliant, difficult to determine etiology at this time - troponins were mildly elevated Currently chest pain-free A-fib rate controlled Bilateral lower extremity venous Dopplers negative for acute DVT but does show small nonocclusive chronic DVT Patient is on a low-dose heparin drip Cardiology consulted, awaiting recommendations TTE showed slight drop in EF but no wall motion abnormalities Will allow the patient to have a diet today since no recommendation from cardiology yet (2) Atrial fibrillation: Plan: -Patient has a known history of persistent afib -Noted to be in afib RVR with HR in the 120's on arrival - patient is now on a reduced dose of diltiazem at 120 mg and her rate is controlled -Patient has declined anticoagulation for stroke risk reduction. Discussed it again and she continues to decline. -Continue to monitor on tele (3) Elevated troponin: Plan: -See chest pain (4) Coronary artery disease: Plan: -Has been taking 81 mg Aspirin daily -S/P 324 mg Aspirin in the ED -LAD stent placed in 2019 - Rosuvastatin at 10 mg started today (5) COPD (chronic obstructive pulmonary disease): Plan: -Stable on RA -Not on outpatient therpay -Denies previous tobacco history -Will order prn levalbuterol to try and prevent ongoing tachycardia (6) HTN (hypertension): Plan: -Currently stable -Monitor while restarting diltiazem (7) Leg swelling: Plan: - no acute DVT Small chronic nonocclusive DVT found Admission and Anticipated Discharge Date Admission Date: March 08, 2023 Subjective patient feels well. No chest pain or shortness of breath. She says that she spoke to the frame catcher this morning who did not recommend any further ca rdiac work-up Review of Systems Review of Systems: All systems reviewed & are unremarkable except as noted in Subjective Physical Exam Physical Exam: general: Awake, conversant Heart: S1, S2/regular rate and rhythm, no murmur rubs or gallops Lungs: Clear to auscultation bilaterally. Normal effort Abdomen: Soft/nontender/nondistended. No hepatosplenomegaly Extremities: No clubbing/cyanosis. No edema Behavior: Appropriate, cooperative Results & Data Results & Data Vital Signs (Past 12 Hours) Vital Signs Temp Pulse Resp BP Pulse Ox O2 Del Method 03/09/23 15:38 36.4 C L 79 19 150/93 H 95 Room Air 03/09/23 11:11 36.6 C 85 19 152/86 H 95 Room Air 03/09/23 07:37 36.6 C 82 19 148/85 H 93 Room Air PG Care Time/CCT Total # of Minutes Spent Total Time Spent with Patient: Total time spent is greater than 50% in coordination of care (as documented) at patient's floor/unit and/or counseling patient: Coding Level of Care Code 63572 SUB INP/OBS CARE 2/35MIN Diagnoses Chest pain R07.9 Atrial fibrillation I48.91 Elevated troponin R77.8 Coronary artery disease I25.10 COPD (chronic obstructive pulmonary disease) J44.9 HTN (hypertension) I10 Leg swelling M79.89
[2023-03-09] MEDS ORDERED: lisinopril 5 MG TAB PO ONE (17:00)
[2023-03-09 18:28] LABS: Partial Thromboplastin Ratio 1.4; Partial Thromboplastin Time 39.9 Seconds (21.0-31.0)
[2023-03-09] MEDS: ONDANSETRON INJ 2 MG/ML 2 ML VIAL IV PRN (20:07)
[2023-03-09] MEDS: HEPARIN SODIUM/DEXTROSE 25,000 UNITS/500 ML BAG IV SCH (23:30)
[2023-03-10 01:49] LABS: Basophils # (auto) 0.03 K/uL (0.00-0.20); Basophils % (auto) 0.5 %; Eosinophils # (auto) 0.08 K/uL (0.00-0.50); Eosinophils % (auto) 1.3 %; Hematocrit (blood only) 36.8 % (37.0-47.0); Hemoglobin 11.9 g/dl (12.0-16.0); Immature Granulocytes # (auto) 0.01 K/uL (0.01-0.20); Immature Granulocytes % (auto) 0.2 %; Lymphocytes # (auto) 2.04 K/uL (1.20-3.40); Lymphocytes % (auto) 32.1 %; Mean Corpuscular Hemoglobin 30.4 pg (25.0-34.0); Mean Corpuscular Hgb Conc 32.3 g/dL (32.0-36.0); Mean Corpuscular Volume 94.1 fL (80.0-100.0); Mean Platelet Volume 11.1 fL (9.4-12.4); Monocytes # (auto) 0.59 K/uL (0.11-0.59); Monocytes % (auto) 9.3 %; Neutrophils % (auto) 56.6 %; Platelet Count 149 K/uL (130-400); RDW Coefficient of Variation 13.2 % (11.5-14.5); RDW Standard Deviation 45.5 fL (36.4-46.3); Red Blood Count 3.91 M/uL (4.20-5.40); White Blood Count 6.35 K/ul (4.8-10.8)
[2023-03-10 01:52] LABS: Partial Thromboplastin Ratio 1.4; Partial Thromboplastin Time 38.8 Seconds (21.0-31.0)
[2023-03-10] MEDS: ACETAMINOPHEN 325 MG TAB PO PRN (06:19)
[2023-03-10 06:25] LABS: Albumin Level 3.1 gm/dl (3.4-5.0); Bilirubin,Total 0.6 mg/dl (0.2-1.0); Calcium 8.5 mg/dl (8.6-10.3); Magnesium 1.8 mg/dl (1.7-2.4); Potassium 4.5 mmol/L (3.5-5.1)
[2023-03-10 06:30] LABS: BUN Creatinine Ratio 16.7 (10-20); Creatinine Clr Calc Pharmacy 56.8 ml/min; Est GFR (African American) 72.5 ml/min; Est GFR (Non-African American) 62.5 ml/min; Globulin 3.2 gm/dl (2.5-4.0); Total Protein 6.3 gm/dl (6.0-8.3)
[2023-03-10 06:36] LABS: Troponin I High Sensitivity 52.7 pg/ml (0-14)
[2023-03-10] MEDS: PANTOprazole 40 MG TAB PO SCH (08:50)
[2023-03-10] MEDS: lisinopril 5 MG TAB PO SCH (08:50)
[2023-03-10] MEDS: ROSUVASTATIN CALCIUM 10 MG TAB PO SCH (08:50)
[2023-03-10] MEDS: ASPIRIN 81 MG ECTAB PO SCH (08:50)
[2023-03-10] MEDS: METOPROLOL TARTRATE 25 MG TAB PO SCH ×2 (08:50→17:13)
[2023-03-10 11:13] LABS: Partial Thromboplastin Ratio 1.7
--- NOTE | 2023-03-10 12:37 | Cardiology Progress Note ---
Date of Service March 10, 2023 Assessment & Plan (1) Coronary artery disease: Plan: 2. Persistent atrial fibrillation 3. Cardiomyopathy with mildly reduced ejection fractionEF 45 to 50% with apical hypokinesis 4. Moderate mitral regurgitation. 5. GERD 6. Hypertension 7. Dyslipidemiastatin intolerance Still with intermittent episodes of chest pain. Troponin downtrending. 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 Review of Systems Review of Systems: All systems reviewed & are unremarkable except as noted in HPI & below Physical Exam Physical Exam: General: Comfortable HEENT: Sclerae anicteric Lungs: Clear to auscultation bilaterally, no crackles or wheezes Cardiac: Irregular irregular, 2 out of 6 holosystolic murmur at the apex Vascular: 2+ radial Abdomen: Soft, nontender Extremities: Well perfused, trace bilateral edema Neuro: Nonfocal Psych: Alert orient x3, normal affect and mood Results & Data Vital Signs (Past 12 Hours) Vital Signs Temp Pulse Resp BP Pulse Ox O2 Del Method 03/10/23 07:19 98.1 F 94 H 18 114/80 90 Room Air 03/10/23 03:45 97.3 F L 90 18 122/83 90 Room Air PG Care Time/CCT Total # of Minutes Spent Total Time Spent with Patient: Total time spent is greater than 50% in coordination of care (as documented) at patient's floor/unit and/or counseling patient: Coding Level of Care Code 29454 SUB INP/OBS CARE 2/35MIN Diagnoses Coronary artery disease I25.10
--- NOTE | 2023-03-10 12:38 | Pre Anesthesia Assessment ---
Date of Service March 10, 2023 Pre Sedation Assessment Vital Signs Temp Pulse Pulse Pulse Resp BP Pulse Ox 03/10/23 11:44 98.1 F 90 18 131/83 92 03/10/23 07:19 98.1 F 94 H 18 114/80 90 03/10/23 03:45 97.3 F L 90 18 122/83 90 03/09/23 23:25 97.0 F L 87 18 131/87 90 03/09/23 23:33 87 03/09/23 19:35 03/09/23 19:20 97.5 F L 86 18 139/85 94 03/09/23 15:38 97.5 F L 79 19 150/93 H 95 O2 Del Method 03/10/23 11:44 Room Air 03/10/23 07:19 Room Air 03/10/23 03:45 Room Air 03/09/23 23:25 Room Air 03/09/23 23:33 03/09/23 19:35 Room Air 03/09/23 19:20 Room Air 03/09/23 15:38 Room Air Cardiovascular RRR, no murmur, no edema Respiratory normal respiratory effort, lungs clear to auscultation Pre-Sedation Airway Assessment Smoking Status: Never smoker Hx Sleep Apnea: No Hx Difficult Intubation: No Short, Thick Neck: No Thyromental Distance: > or= 3.5 Finger Breadths Oral Cavity: + WNL Mallampati Class: III ASA: ASA3 Procedure Planning Contraindications for Sedation: none Current Medications Reviewed: Yes Notes The planned sedation has been discussed with the patient. Informed Consent was obtained. I have identified the patient, determined the appropriateness of sedation and have assessed the patient immediately prior to the procedure. All medicine(s) and interventions are by my order.
[2023-03-10] MEDS ORDERED: niCARdipine HCL INJ 2.5 MG/ML 10 ML AMP ONE (14:13)
[2023-03-10] MEDS ORDERED: MIDAZOLAM HCL 1 MG/ML 2ML VIAL ONE (14:13)
[2023-03-10] MEDS ORDERED: fentaNYL citrate PF 100 MCG/2 ML VIAL ONE (14:13)
[2023-03-10] MEDS ORDERED: HEPARIN (PORCINE) 1000 UNIT/ML 10 ML (CATH LAB USE ONLY) ONE ×2 (14:13→15:33)
[2023-03-10] MEDS ORDERED: NITROGLYCERIN/D5W 100MCG/ML 20ML SYR ONE (14:13)
--- NOTE | 2023-03-10 14:52 | Hospitalist Progress Note ---
Date of Service March 10, 2023 Assessment & Plan (1) Chest pain: Plan: - Has ongoing chest pain off and on. -Patient has been having substernal epigastric/substernal chest discomfort for 3-4 days -Patient is a poor historian and non-compliant, difficult to determine etiology at this time - troponins Trending down plan is for cardiac catheterization today. A-fib rate controlled Bilateral lower extremity venous Dopplers negative for acute DVT but does show small nonocclusive chronic DVT Patient is on a low-dose heparin drip Which is on hold prior to cath cardiology on board TTE results reviewed (2) Atrial fibrillation: Plan: -Patient has a known history of persistent afib -Noted to be in afib RVR with HR in the 120's on arrival - patient is now on a reduced dose of diltiazem at 120 mg and her rate is controlled -Patient has declined anticoagulation for stroke risk reduction. Discussed it again and she continues to decline. -Continue to monitor on tele (3) Elevated troponin: Plan: -See chest pain (4) Coronary artery disease: Plan: -Has been taking 81 mg Aspirin daily -S/P 324 mg Aspirin in the ED -LAD stent placed in 2019 - Rosuvastatin at 10 mg (5) COPD (chronic obstructive pulmonary disease): Plan: -Stable on RA -Not on outpatient therpay -Denies previous tobacco history -Will order prn levalbuterol to try and prevent ongoing tachycardia (6) HTN (hypertension): Plan: -Currently stable -Monitor while restarting diltiazem (7) Leg swelling: Plan: - no acute DVT Small chronic nonocclusive DVT found Admission and Anticipated Discharge Date Admission Date: March 08, 2023 Subjective patient has off-and-on chest pain ongoing. Denies shortness of breath. She is accompanied by her family in her room. She is waiting for her cardiac catheterization. Review of Systems Review of Systems: All systems reviewed & are unremarkable except as noted in Subjective Physical Exam Physical Exam: general: Awake, conversant Heart: S1, S2/regular rate and rhythm, no murmur rubs or gallops Lungs: Clear to auscultation bilaterally. Normal effort Abdomen: Soft/nontender/nondistended. No hepatosplenomegaly Extremities: No clubbing/cyanosis. No edema Behavior: Appropriate, cooperative Results & Data Results & Data Vital Signs (Past 12 Hours) Vital Signs Temp Pulse Resp BP BP Pulse Ox O2 Del Method 03/10/23 13:47 79 17 151/79 H 91 Room Air 03/10/23 11:44 36.7 C 90 18 131/83 92 Room Air 03/10/23 07:19 36.7 C 94 H 18 114/80 90 Room Air 03/10/23 03:45 36.3 C L 90 18 122/83 90 Room Air PG Care Time/CCT Total # of Minutes Spent Total Time Spent with Patient: Total time spent is greater than 50% in coordination of care (as documented) at patient's floor/unit and/or counseling patient: Coding Level of Care Code 61380 SUB INP/OBS CARE 2/35MIN Diagnoses Chest pain R07.9 Atrial fibrillation I48.91 Elevated troponin R77.8 Coronary artery disease I25.10 COPD (chronic obstructive pulmonary disease) J44.9 HTN (hypertension) I10 Leg swelling M79.89
[2023-03-10] MEDS ORDERED: CLOPIDOGREL BISULFATE 300 MG TAB ONE (15:53)
--- NOTE | 2023-03-10 16:20 | Post Anesthesia Assessment ---
Date of Service March 10, 2023 Post Sedation Assessment Vital Signs Temp Pulse Pulse Resp BP BP Pulse Ox 03/10/23 13:47 79 17 151/79 H 91 03/10/23 11:44 98.1 F 90 18 131/83 92 03/10/23 07:19 98.1 F 94 H 18 114/80 90 03/10/23 03:45 97.3 F L 90 18 122/83 90 03/09/23 23:25 97.0 F L 87 18 131/87 90 03/09/23 23:33 87 03/09/23 19:35 03/09/23 19:20 97.5 F L 86 18 139/85 94 O2 Del Method 03/10/23 13:47 Room Air 03/10/23 11:44 Room Air 03/10/23 07:19 Room Air 03/10/23 03:45 Room Air 03/09/23 23:25 Room Air 03/09/23 23:33 03/09/23 19:35 Room Air 03/09/23 19:20 Room Air Recovery Score Activity: Moves 4 extremities Respiration: Deep Breath/Cough Circulation: +/-20% PreAnes Value Consciousness: Fully Awake Oxygen Saturation: O2 needed for >90% Discharge Sedation Level of Care: Fast Track Phase II Post Sedation Plan On clinical assessment, the patient appears to have tolerated the sedation without complications. Patient is recovering as anticipated. Patient will continue to be monitored by nursing and may be discharged when sedation discharge criteria are met per below protocol. Upon Completions of procedure up to 15 minutes continue every 5 minute vital signs and the P.A.R. score; then discharge to a Phase I or Fast Track to Phase II per the following guidelines: * Discharge Patient to appropriate Phase II area if PAR is 8 or greater or return to pre- procedure baseline. The post - procedure orders will be as directed. * If PAR score is less than 8 or not return to pre-procedure baseline then patient will follow Phase I monitoring till PAR is reached for Phase II. The Phase I may be done in procedure room or may call to secure a Phase I area. * If naloxone or flumazenil are used for reversal, hold in Phase I for continued monitoring from when last reversal dose was given for a minimum of 60 minutes or longer pending the nurse and/or physician discretion of patient condition before discharge to Phase II. Please call the Sedation Physician to re-evaluate and complete post-note for discharge to Phase II area. Do NOT discharge from procedure sedation or Phase 1 until post- sedation evaluation note is complete by procedure /sedation MD Sedation Discharge Instructions to be given to the patient at discharge to home.
--- NOTE | 2023-03-10 16:24 | Cardiac Catheterization ---
[facility] Data: Production Shift Supervisor Cardiac Status Clinical evaluation leading to the procedure CAD Presenation: Non STEMI Anginal Classification: CCS III Diagnostic Physicians Name: Armando Mas MD Closure Device Recommendations: PCI without planned CABG Cardiac Cath Procedure Full Procedure Date March 10, 2023 Pre-Procedure Diagnosis Pre-Procedure Diagnosis: Non STEMI AUC Score AUC Score: 7 Post-Procedure Diagnosis Post-Procedure Diagnosis: Severe CAD, Successful PCI and Elevated Intracardiac Pressures Procedure(s) Performed Procedure(s) Performed: Coronary Angiography, Left Heart Cath and Drug Eluting Stent Aircraft Engine Dismantler Armando Mas MD Letterpress Setter(s) Ricci Estimated Blood Loss Estimated Blood Loss: 15 Medication(s) Medication(s): Fentanyl, Heparin, Lidocaine 1%, Nicardipine, Nitroglycerin and Versed Summary of Findings Indication: ACS Access: 6 Fr right radial Catheters: [place], EBU 3.5 guide Findings: LM -large caliber, 20-30% ostial, 30% distal stenosis at bifurcation LAD -large caliber, calcified, proximal luminal regularities, mid LAD stent widely patent, earlydistal LAD 98% stenosis just after takeoff of small D3. Remainder of LAD without significant disease and wraps around apex. Jailed small to medium caliber D1 with 50% ostial stenosis. Circumflex -medium caliber, midsegment luminal irregularities. Large high OM1 without significant disease. Medium proximal OM2 75% stenosis. RCA -large caliber, dominant, 30% proximal, mid segment luminal regularities, 70% earlydistal focal stenosis. Medium RPDA, PLB without significant disease. LVEDP -18 -- PCI -- Antithrombotic therapy: Heparin, clopidogrel Procedure: Left main cannulated with EBU 3.5 guide Pre-procedure flow LINDY 1-2 Whisper wire passed across lesion into distal vessel With the aid of a telescope support catheter Distal LAD lesion predilated with 2.0 compliant balloon Dilated lesion stented with 2.25 x 15 mm Xience drug-eluting stent Stent post-dilated with 2.5 noncompliant balloon IC vasodilators administered for spasm Post procedure LINDY 3 flow, stent well expanded with minimal residual stenosis. Jailed D3 initially with reduced flow, return of LINDY-3 flow at completion of PCI to LCx. Whisper wire removed from LAD and redirected into circumflex/OM 2 and across proximal stenosis Proximal OM2 stented with 2.5 x 18 mm Xience drug-eluting stent Stent postdilated with stent balloon IC vasodilators administered for spasm Post procedure LINDY 3 flow, stent well expanded with minimal residual stenosis. No apparent coronary complications.. Arterial Closure: TR band Summary: 1. Severe multi-vessel coronary artery disease -98% distal LAD. Widely patent mid LAD stent 75% proximal OM2 70% earlydistal RCA 20 to 30% ostial/distal LMCA 2. Borderline intracardiac filling pressure, LVEDP 18 3. Successful PCI of distal LAD with single drug-eluting stent (2.25 x 15 mm Xience; postdilated with 2.5 NC). 4. Successful PCI of proximal OM2 with single drug-eluting stent (2.5 x 18 mm Xience). Recommendations: To PCU for continued monitoring Loaded with clopidogrel 600 mg in Production Shift Supervisor Continue dual-antiplatelet therapy for at least 1 year (as previously declined anticoagulation for AF). We will try to restart low-dose statin, and antihypertensives Consult cardiac Rehab Medically manage residual distal RCA disease. If refractory exertional anginal symptoms in the future RCA appears amenable to PCI. Hemodynamics Rest Ao:: 130/70/103 Final Ao: 181/90/121 LV: 131/19 Recommendations Recommendations: PCI without planned CABG Specimens Specimens: None Radiation Exposure (mGy) 5158 Contrast (mls) 165 Anesthesia Moderate 3216-0990 Procedural Complication(s) None Disposition Production Shift Supervisor Holding/Recovery I attest to the content of the Intraoperative Record and any orders documented therein. Any exceptions are noted below. [facility] Card Cath Procedure Codes Cardiac Catheterization Procedure 1: Cardiovascular Cath Procedures: 25102 Coronaries and LHC (+/-LV) Moderate Sedation Procedure 1: Sedation/Anesthesia: 99807 Mod Sedation by the same physician;Init15 Min Child Age 5 & Up Procedure 2: Sedation/Anesthesia: 81595 Mod Sedation by the same physician; Ea [id number] Minutes Stenting Procedure 1: Cardiovascular Stent Procedures: 13058 Perc transcatheter placement of intracoronary stent(s), with ang Procedure 2: Cardiovascular Stent Procedures: 71058 Ea addl branch of a major coronary artery PG Care Time/CCT Total # of Minutes Spent Total Time Spent with Patient: Total time spent is greater than 50% in coordination of care (as documented) at patient's floor/unit and/or counseling patient:
[2023-03-10] MEDS: ONDANSETRON INJ 2 MG/ML 2 ML VIAL IV PRN (16:48)
[2023-03-10] MEDS ORDERED: MoRPHine SULFATE 2 MG/ML CARP ONE (17:10)
[2023-03-10] MEDS ORDERED: NITROGLYCERIN SL 0.4 MG/TAB TAB SL PRN (17:11)
[2023-03-10] MEDS ORDERED: MoRPHine SULFATE 2 MG/ML CARP IM PRN (17:11)
--- NOTE | 2023-03-10 21:47 | Electrocardiogram Report ---
Test Reason : Blood Pressure : / mmHG Vent. Rate : 086 BPM Atrial Rate : 076 BPM P-R Int : 000 ms QRS Dur : 084 ms QT Int : 404 ms P-R-T Axes : 000 -08 -37 degrees QTc Int : 483 ms Atrial fibrillation with premature ventricular or aberrantly conducted complexes Low voltage QRS Cannot rule out Anterior infarct (cited on or before 08-MAR-2023) Abnormal ECG When compared with ECG of 08-MAR-2023 15:34, Questionable change in initial forces of Anterior leads T wave inversion no longer evident in Anterolateral leads Confirmed by Dwight Hein ([id number]) on 03/10/2023 9:47:21 PM Referred By: REFERRED SELF Confirmed By:Dwight Hein
[2023-03-11 06:11] LABS: Basophils # (auto) 0.02 K/uL (0.00-0.20); Basophils % (auto) 0.3 %; Hematocrit (blood only) 37.6 % (37.0-47.0); Hemoglobin 12.1 g/dl (12.0-16.0); Immature Granulocytes # (auto) 0.03 K/uL (0.01-0.20); Immature Granulocytes % (auto) 0.4 %; Lymphocytes # (auto) 1.31 K/uL (1.20-3.40); Lymphocytes % (auto) 17.5 %; Mean Corpuscular Hemoglobin 29.9 pg (25.0-34.0); Mean Corpuscular Hgb Conc 32.2 g/dL (32.0-36.0); Mean Corpuscular Volume 92.8 fL (80.0-100.0); Mean Platelet Volume 10.8 fL (9.4-12.4); Monocytes # (auto) 0.54 K/uL (0.11-0.59); Monocytes % (auto) 7.2 %; Neutrophils # (auto) 5.58 K/uL (1.40-6.50); Neutrophils % (auto) 74.6 %; Platelet Count 153 K/uL (130-400); RDW Coefficient of Variation 13.2 % (11.5-14.5); RDW Standard Deviation 45.3 fL (36.4-46.3); Red Blood Count 4.05 M/uL (4.20-5.40); White Blood Count 7.48 K/ul (4.8-10.8)
[2023-03-11 06:15] LABS: Partial Thromboplastin Ratio 0.9; Partial Thromboplastin Time 25.2 Seconds (21.0-31.0)
[2023-03-11 06:28] LABS: Albumin Level 3.3 gm/dl (3.4-5.0); BUN Creatinine Ratio 15.4 (10-20); Bilirubin,Total 0.7 mg/dl (0.2-1.0); Calcium 8.8 mg/dl (8.6-10.3); Creatinine Clr Calc Pharmacy 65.6 ml/min; Est GFR (African American) 86.2 ml/min; Est GFR (Non-African American) 74.4 ml/min; Globulin 3.2 gm/dl (2.5-4.0); Magnesium 1.8 mg/dl (1.7-2.4); Potassium 4.8 mmol/L (3.5-5.1); Total Protein 6.5 gm/dl (6.0-8.3)
[2023-03-11] MEDS: PANTOprazole 40 MG TAB PO SCH (08:36)
[2023-03-11] MEDS: lisinopril 5 MG TAB PO SCH (08:36)
[2023-03-11] MEDS: ROSUVASTATIN CALCIUM 10 MG TAB PO SCH (08:36)
[2023-03-11] MEDS: ASPIRIN 81 MG ECTAB PO SCH (08:36)
[2023-03-11] MEDS: ACETAMINOPHEN 325 MG TAB PO PRN (08:36)
[2023-03-11] MEDS: METOPROLOL TARTRATE 25 MG TAB PO SCH ×2 (08:36→20:26)
[2023-03-11] MEDS: CLOPIDOGREL BISULFATE 75 MG TAB PO SCH (10:25)
--- NOTE | 2023-03-11 11:22 | Cardiology Progress Note ---
Date of Service March 11, 2023 Assessment & Plan (1) Coronary artery disease: Plan: Post PCI to LAD, OM 2 yesterday. Residual distal RCA disease 2. Persistent atrial fibrillation 3. Cardiomyopathy with mildly reduced ejection fractionEF 45 to 50% with apica l hypokinesis 4. Moderate mitral regurgitation. 5. GERD 6. Hypertension 7. Dyslipidemiastatin intolerance Stable from a cardiac standpoint post PCI yesterday. Post procedure chest pain resolved No signs of heart failure on exam, no access site complications, persistent atrial fibrillation with reasonably controlled heart rates. Post procedure labs stable. No plans for additional intervention to RCA unless refractory exertional symptoms in the future Continue DAPT with aspirin, clopidogrel for at least 1 year Continue new lisinopril and metoprololtransition to Toprol-XL on discharge Continue statin Okay with discharge later today Has scheduled follow-up with me in 3 weeks. Encouraged cardiac rehab Admission and Anticipated Discharge Date Admission Date: March 08, 2023 Subjective No chest pain today. Had mild headache this morning resolved with Tylenol. No other new concerns. Telemetry reviewedpersistent atrial fibrillation primarily in the 90s to 100s, briefly to the 120s this morning before metoprolol. PVCs, longest run 3 beats Review of Systems Review of Systems: All systems reviewed & are unremarkable except as noted in HPI & below Physical Exam Physical Exam: General: Comfortable HEENT: Sclerae anicteric Lungs: Clear to auscultation bilaterally, no crackles or wheezes Cardiac: Irregular irregular, 2 out of 6 holosystolic murmur at the apex Vascular: Right radial artery access site with no ecchymosis, hematoma. Distal pulse and sensation intact. Abdomen: Soft, nontender Extremities: Well perfused, trace bilateral edema (left greater than right) Neuro: Nonfocal Psych: Alert orient x3, normal affect and mood Results & Data Vital Signs (Past 12 Hours) Vital Signs Temp Pulse Pulse Resp BP Pulse Ox O2 Del Method 03/11/23 08:16 97.5 F L 90 18 132/76 92 Room Air 03/11/23 02:49 Room Air 03/11/23 02:49 98.6 F 101 H 18 123/79 95 Room Air 03/10/23 23:21 101 H PG Care Time/CCT Total # of Minutes Spent Total Time Spent with Patient: Total time spent is greater than 50% in coordination of care (as documented) at patient's floor/unit and/or counseling patient: Coding Level of Care Code 13701 SUB INP/OBS CARE 50MIN Diagnoses Coronary artery disease I25.10
[2023-03-11] MEDS ORDERED: METOPROLOL TARTRATE 25 MG TAB PO STA (11:50)
[2023-03-11] MEDS ORDERED: FUROSEMIDE 20 MG TAB PO ONE (16:11)
--- NOTE | 2023-03-11 18:58 | Hospitalist Progress Note ---
Date of Service March 11, 2023 Assessment & Plan (1) Acute coronary syndrome: Plan: Patient with known h/o CAD. Presented with recurrent chest pain and elevated troponin. EKG with lateral ST depressions. Ultimately underwent cardiac catheterization by Dr Mas from [facility] Card[facility] revealing severe CAD. s/p SAMANTHA x 2 to the LAD and OM2. Residual RCA disease. Today - no further chest pain; remains hemodynamically stable. Plan DAPT (asa/plavix) x 1 year. Titrate beta corrine. Cont lisinopril. Cont crestor 10mg daily - thus far tolerating. (2) Coronary artery disease: Plan: 10/2018 - s/p stent to 95% LAD lesion. 03/10/23 - cardiac cath by Dr Armando Mas - Findings: LM -large caliber, 20-30% ostial, 30% distal stenosis at bifurcation LAD -large caliber, calcified, proximal luminal regularities, mid LAD stent widely patent, earlydistal LAD 98% stenosis just after takeoff of small D3. Remainder of LAD without significant disease and wraps around apex. Jailed small to medium caliber D1 with 50% ostial stenosis. Circumflex -medium caliber, midsegment luminal irregularities. Large high OM1 without significant disease. Medium proximal OM2 75% stenosis. RCA -large caliber, dominant, 30% proximal, mid segment luminal regularities, 70% earlydistal focal stenosis. Medium RPDA, PLB without significant disease. Summary: 1. Severe multi-vessel coronary artery disease * 98% distal LAD. Widely patent mid LAD stent * 75% proximal OM2 * 70% earlydistal RCA * 20 to 30% ostial/distal LMCA 2. Borderline intracardiac filling pressure, LVEDP 18 3. Successful PCI of distal LAD with single drug-eluting stent (2.25 x 15 mm Xience; postdilated with 2.5 NC). 4. Successful PCI of proximal OM2 with single drug-eluting stent (2.5 x 18 mm Xience). See #1 above. (3) Elevated troponin: Plan: peak HS troponin was 128 2nd to #1 (4) Acute systolic (congestive) heart failure: Plan: Echo with EF 45-50%. Mildly reduced LV Fx 2nd to ischemic cardiomyopathy. Cannot rule out tachy-induced cardiomyopathy from chronic, uncontrolled a.fib but much less likely. Continue metoprolol - titrate for better rate control; convert to succinate upon discharge. Continue LEATHA. Pt with significant dyspnea and LVEDP of 18 -- will give lasix 20mg po x 1; re-e avani tomorrow. Hopefully LV function will improve now that she has been re-vascularized and with BB/LEATHA & time. (5) Chronic deep vein thrombosis (DVT) of left lower extremity: Plan: chronic DVT in superficial femoral vein and popliteal vein. discussed this finding in detail today with patient. ideally she is willing to take anticoagulation in light of her permanent a.fib as well as the chronic DVT. she is unwilling to take any anticoagulation. (6) Atrial fibrillation: Plan: poor rate control with activity (120s with getting up to go to bathroom; 140s and 150s with walking down the hallway). had initially increased her metoprolol to 50mg BID and rates still suboptimal. increase metoprolol to 75mg BID. (7) Dyslipidemia: Plan: cont crestor. LDL 102. HDL 32. trigs 95. has not done well on statins in the past. (8) CRPS (complex regional pain syndrome) type I: Plan: not on specific therapy for such at home. (9) COPD (chronic obstructive pulmonary disease): Plan: patient reports no prior tobacco usage. she is not on inhalers at home. no emphysematous changes on cxr. I don't see PFTs to substantiate a dx of obstructive lung disease. she does have significant RODRIGUES as well as drop in O2 sats with walking today. re-assess in am. (10) GERD (gastroesophageal reflux disease): Plan: would keep on protonix 40mg daily given GERD tendencies + DAPT. (11) HTN (hypertension): Plan: controlled with BB & LEATHA inhibitor (12) Ischemic cardiomyopathy: Plan: see #4 above (13) History of pulmonary embolus (PE): Plan: noted dopplers this admission with chronic DVT of LLE Plan reassess afib rate control tomorrow Admission and Anticipated Discharge Date Admission Date: March 08, 2023 Subjective tele overnight - a.fib rates at rest 80s, 90s, low 100s with walking in hallway - a.fib rates 140s to 150s patient resting comfortably in bed during the visit denies any recurrent chest pain with walking in hallway she did have dyspnea and O2 sats dropped to 89-90% in room air denies any discomfort or issues with cardiac cath site - right wrist reports frequent heartburn at home we had lengthy discussion about anticoagulation - she is adamantly opposed to taking warfarin, xarelto or eliquis discussed stroke risk with the jennie, as well chronic DVT in left leg Review of Systems Review of Systems: cv - no orthopnea, no chest pain pulm - no dyspnea at rest; +RODRIGUES GI - no vomiting; no nausea; no pain Physical Exam Physical Exam: gen - obese, NAD neck - no obvious JVD mouth - MMM heart - irregularly irregular, s1 s2, 1/6 systolic murmur LLSB lungs - decreased BS bases, otherwise CTA b/l abd - soft NT ND BS+ ext - trace edema b/l; pulses 2+ b/l; left leg is larger than right leg vascular - right radial artery - no hematoma, no aneurysm psych - a/o x 3 Results & Data Results & Data Vital Signs (Past 12 Hours) Vital Signs Temp Pulse Pulse Resp BP Pulse Ox O2 Del Method 03/11/23 17:00 95 H 03/11/23 16:07 37.0 C 78 18 130/83 92 Room Air 03/11/23 12:08 36.9 C 96 H 19 136/74 95 Room Air 03/11/23 09:00 96 H 03/11/23 08:16 36.4 C L 90 18 132/76 92 Room Air Laboratory Results Laboratory Results - last 24 hr 03/11/23 03/11/23 03/11/23 05:43 05:43 05:43 WBC 7.48 RBC 4.05 L Hgb 12.1 Hct 37.6 MCV 92.8 MCH 29.9 MCHC 32.2 RDW Std Deviation 45.3 RDW Coeff of [place]gil 13.2 Plt Count 153 MPV 10.8 Immature Gran % (Auto) 0.4 Neut % (Auto) 74.6 Lymph % (Auto) 17.5 [place] % (Auto) 7.2 Eos % (Auto) 0.0 Baso % (Auto) 0.3 Neut # (Auto) 5.58 Lymph # (Auto) 1.31 [place] # (Auto) 0.54 Eos # (Auto) 0.00 Baso # (Auto) 0.02 Immature Gran # (Auto) 0.03 APTT 25.2 PTT Ratio 0.9 Sodium 138 Potassium 4.8 Chloride 104 Carbon Dioxide 27 Anion Gap 7 BUN 12 Creatinine 0.78 Est Cr Clr Drug Dosing 65.6 Est GFR ( Amer) 86.2 Est GFR (Non-Af Amer) 74.4 BUN/Creatinine Ratio 15.4 Glucose 90 Calcium 8.8 Magnesium 1.8 Total Bilirubin 0.7 AST 36 ALT 12 Alkaline Phosphatase 83 Total Protein 6.5 Albumin 3.3 L Globulin 3.2 Albumin/Globulin Ratio 1.0 PG Care Time/CCT Total # of Minutes Spent Total Time Spent with Patient: Total time spent is greater than 50% in coordination of care (as documented) at patient's floor/unit and/or counseling patient: Coding Level of Care Code 20610 SUB INP/OBS CARE 3/50MIN Diagnoses Acute coronary syndrome I24.9 Coronary artery disease I25.10 Elevated troponin R77.8 Acute systolic (congestive) heart failure I50.21 Chronic deep vein thrombosis (DVT) of left lower extremity I82.502 Atrial fibrillation I48.91 Dyslipidemia E78.5 CRPS (complex regional pain syndrome) type I G90.50 COPD (chronic obstructive pulmonary disease) J44.9 GERD (gastroesophageal reflux disease) K21.9 HTN (hypertension) I10 Ischemic cardiomyopathy I25.5 History of pulmonary embolus (PE) Z86.711
[2023-03-11] MEDS ORDERED: METOPROLOL TARTRATE 50 MG TAB PO SCH (21:00)
[2023-03-12] MEDS: ACETAMINOPHEN 325 MG TAB PO PRN (06:18)
[2023-03-12 07:17] LABS: BUN Creatinine Ratio 20.6 (10-20); Calcium 8.6 mg/dl (8.6-10.3); Creatinine Clr Calc Pharmacy 50.1 ml/min; Est GFR (African American) 62.3 ml/min; Est GFR (Non-African American) 53.8 ml/min
[2023-03-12 07:20] LABS: Thyroid Stimulating Hormone 0.224 uIu/ml (0.300-4.500)
[2023-03-12 07:54] LABS: T4 Free Thyroxine 1.18 ng/dl (0.61-1.60)
[2023-03-12] MEDS: ROSUVASTATIN CALCIUM 10 MG TAB PO SCH (08:25)
[2023-03-12] MEDS: PANTOprazole 40 MG TAB PO SCH (08:25)
[2023-03-12] MEDS: lisinopril 5 MG TAB PO SCH (08:25)
[2023-03-12] MEDS: METOPROLOL TARTRATE 25 MG TAB PO SCH (08:26)
[2023-03-12] MEDS: CLOPIDOGREL BISULFATE 75 MG TAB PO SCH (08:26)
[2023-03-12] MEDS: ASPIRIN 81 MG ECTAB PO SCH (08:26)
[2023-03-12] MEDS ORDERED: METOPROLOL TARTRATE 25 MG TAB PO STA (09:47)
--- NOTE | 2023-03-12 13:42 | Cardiology Progress Note ---
Date of Service March 12, 2023 Assessment & Plan (1) Coronary artery disease: Plan: Post PCI to LAD, OM 2. Residual distal RCA disease 2. Persistent atrial fibrillation 3. Cardiomyopathy with mildly reduced ejection fractionEF 45 to 50% with apical hypokinesis 4. Moderate mitral regurgitation. 5. GERD 6. Hypertension 7. Dyslipidemiastatin intolerance No recurrent chest pain. No signs of heart failure on exam, no access site complications Remains in AF - adequately rate controlled at rest. No plans for additional intervention to RCA unless refractory exertional symptoms in the future Continue DAPT with aspirin, clopidogrel for at least 1 year Continue statin -- Agree with increased metoprolol for rate control. Okay with discharge today Has scheduled follow-up with me in 3 weeks, further discussion of cardiac rehab. Admission and Anticipated Discharge Date Admission Date: March 08, 2023 Subjective Feeling well today. No chest pain. Tele reviewed -- remains in AF, rate controlled at rest. HR to 140s with exertion. Review of Systems Review of Systems: All systems reviewed & are unremarkable except as noted in HPI & below Physical Exam Physical Exam: General: Comfortable HEENT: Sclerae anicteric Lungs: Clear to auscultation bilaterally, no crackles or wheezes Cardiac: Irregular irregular, 2 out of 6 holosystolic murmur at the apex Vascular: Right radial artery access site with minimal ecchymosis, no hematoma. Distal pulse and sensation intact. Abdomen: Soft, nontender Extremities: Well perfused, trace bilateral edema (left greater than right) Neuro: Nonfocal Psych: Alert orient x3, normal affect and mood ENMT: Mallampati Class: III Respiratory: normal respiratory effort, lungs clear to auscultation Cardiovascular: RRR, no murmur, no edema Results & Data Vital Signs (Past 12 Hours) Vital Signs Temp Pulse Pulse Resp BP Pulse Ox O2 Del Method 03/12/23 11:19 97.3 F L 82 18 115/74 93 Room Air 03/12/23 09:00 Room Air 03/12/23 08:00 86 03/12/23 07:24 97.5 F L 79 19 123/78 93 Room Air 03/12/23 07:07 97.7 F 83 18 130/85 94 Room Air 03/12/23 02:37 97.9 F 88 18 114/75 94 Room Air PG Care Time/CCT Total # of Minutes Spent Total Time Spent with Patient: Total time spent is greater than 50% in coordination of care (as documented) at patient's floor/unit and/or counseling patient: Coding Level of Care Code 55194 SUB INP/OBS CARE MIN Diagnoses Coronary artery disease I25.10
--- NOTE | 2023-03-12 13:48 | Discharge Summary ---
Date of Service date of admission - March 08, 2023 date of discharge - March 12, 2023 Admission HPI Per Admitting Provider Leann is a 73 year old female with a PMH significant for moderate mitral regurgitation, permanent atrial fibrillation (has declined anticoagulation multiple), history of VTE, hypertension, GERD, COPD, and coronary artery disease post PCI with SAMANTHA to LAD , complex regional pain syndrome Type 1, COPD, GERD, and previous DVT and PE who presented to the [facility] ED on 03/08 with complains of multiple days of epigastric pain/heartburn. In the ED the patient was noted to be tachycardic with HR in the 120's but otherwise stable. Labs were significant for an initial high sen trop of 122. Chest xray was read as "No acute cardiopulmonary findings. Stable cardiomegaly.". ECG was concerning for ST depression and t-wave inversions in the lateral leads. Prior to admission the patient was given 324 mg Aspirin, 40 mg PO pantoprazole, 500 mL NSS,and a dose of maalox. At the time of the exam the patient was lying in bed in no acute distress with her family sitting bedside, history was taken from all. The patient is not the most reliable historian as her family corrects her throughout the exam. She started to develop substernal/epigastric pain approximately 4 days ago. She describes the pain as a burning sensation, at it's most severe it is a 10/10. When asked, she states that this pain feels similar to her symptoms in 2019 when she required a heart cath and stent placement, "but worse". She initially tried pepto bismol and christianne seltzer over the past few days without relief. Her daughter got her famotidine last night and this seems to improve her symptoms a little. When asked, she states that she has only been taking a daily aspirin. She never picked up her atorvastatin that was previously prescribed for her. She has not been taking her diltiazem or omeprazole as her PCP did not renew the prescriptions as she has not been seen in their office for some time. Her family states that she is very non-compliant with medications. We discussed starting a heparin drip at this time and the patient is in agreement. We discussed code status, the patient wishes to be a full code and for her son to make medical decisions for her if she cannot make them herself. Principal Diagnosis 1. acute coronary syndrome 2. coronary artery disease s/p SAMANTHA x 2 3. atrial fibrillation 4. chronic appearing left thigh DVT 5. GERD 6. chronic shortness of breath due to reported history of lung disease 7. mild ischemic cardiomyopathy / acute systolic CHF EF 45-50% Discharge Exam gen - obese, NAD neck - no obvious JVD mouth - MMM heart - irregularly irregular, s1 s2, 1/6 systolic murmur LLSB lungs - decreased BS bases, otherwise CTA b/l abd - soft NT ND BS+ ext - trace edema b/l; pulses 2+ b/l; left leg is larger than right leg vascular - right radial artery - no hematoma, no aneurysm psych - a/o x 3 Discharge Data Allergies Allergy/AdvReac Type Severity Reaction Status Date / Time rivaroxaban AdvReac Mild stomach Verified 09/30/22 12:48 upset Consultations [facility] Procedures Performed 1. Echocardiogram: 2. Operation Date: 03/10/23 13:00 p Cath, Left with Cors and Vent - Armando Mas MD s Cineradiography w/Routine Exam - Armando Mas MD p Drug Eluting Stent SGl Vessel - Armando Mas MD s Drug Eluting Stent each ADDTL Vessel - Armando Mas MD Findings: LM -large caliber, 20-30% ostial, 30% distal stenosis at bifurcation LAD -large caliber, calcified, proximal luminal regularities, mid LAD stent widely patent, earlydistal LAD 98% stenosis just after takeoff of small D3. Remainder of LAD without significant disease and wraps around apex. Jailed small to medium caliber D1 with 50% ostial stenosis. Circumflex -medium caliber, midsegment luminal irregularities. Large high OM1 without significant disease. Medium proximal OM2 75% stenosis. RCA -large caliber, dominant, 30% proximal, mid segment luminal regularities, 70% earlydistal focal stenosis. Medium RPDA, PLB without significant disease. LVEDP -18 Summary: 1. Severe multi-vessel coronary artery disease * 98% distal LAD. Widely patent mid LAD stent * 75% proximal OM2 * 70% earlydistal RCA * 20 to 30% ostial/distal LMCA 2. Borderline intracardiac filling pressure, LVEDP 18 3. Successful PCI of distal LAD with single drug-eluting stent (2.25 x 15 mm Xience; postdilated with 2.5 NC). 4. Successful PCI of proximal OM2 with single drug-eluting stent (2.5 x 18 mm Xience). Ordered Studies Chest X-Ray 03/08/23 15:15 XR chest 1V not portable CLINICAL HISTORY: Chest pain, nonspecific COMPARISON STUDY: Chest CT February 18, 2017. Chest radiograph October 13, 2018. FINDINGS: Lung volumes are normal. Lungs are clear. There is no pneumothorax or pleural effusion. Marked cardiomegaly is unchanged. Mediastinal contours are normal. There is no evidence for pulmonary edema. IMPRESSION: No acute cardiopulmonary findings. Stable cardiomegaly. ACT 112: Negative or not required by law. Electronically signed by: Joby Quintanilla M.D. 03/08/2023 4:30 PM Venous Doppler Study 03/08/23 18:29 ULTRASOUND BILATERAL LOWER EXTREMITY VENOUS CLINICAL HISTORY: Lower extremity edema. Dyspnea COMPARISON STUDY: Left lower extremity venous ultrasound dated 02/18/2017. TECHNIQUE: Real-time, grayscale, and color Doppler sonography of the deep veins of the right and left lower extremity was performed from the inguinal crease to the calf. Compression and augmentation were utilized. FINDINGS: Right lower extremity: There is no sonographic evidence of deep venous thrombosis in the right lower extremity. The common femoral, superficial femoral, and popliteal veins are patent and normally compressible. The greater saphenous vein and the profunda femoris vein at the junction with the common femoral vein are clear. The visualized calf veins are patent. Left lower extremity: There is no sonographic evidence of acute deep venous thrombosis in the left lower extremity. A small amount of chronic nonocclusive thrombus is seen within the distal superficial femoral and popliteal veins. The common femoral, superficial femoral, and popliteal veins are otherwise patent and normally compressible. The greater saphenous vein and the profunda femoris vein at the junction with the common femoral vein are clear. The visualized calf veins are patent. IMPRESSION: 1. There is no sonographic evidence of acute deep venous thrombosis in the right or left lower extremity. 2. There is a small amount of chronic thrombus seen in the left lower extremity as above. ACT 112: Negative or not required by law. Electronically signed by: Inder Moe M.D. 03/08/2023 8:42 PM Hospital Course (1) Acute coronary syndrome: Patient with known h/o CAD. Presented with recurrent chest pain and elevated troponin. EKG with lateral ST depressions. Ultimately underwent cardiac catheterization by Dr Armando Mas from [facility] revealing severe CAD. s/p SAMANTHA x 2 to the LAD and OM2. Residual RCA disease. Loaded with plavix following her cath. Post-cath -- no further chest pain; remained hemodynamically stable. Plan: * DAPT (asa/plavix) x 1 year. * Cont beta corrine. * Cont lisinopril. * Cont crestor 10mg daily - thus far tolerating. * Will need f/u with [facility] shortly after discharge. (2) Coronary artery disease: 10/2018 - s/p stent to 95% LAD lesion. 03/10/23 - cardiac cath by Dr Armando Mas - Findings: LM -large caliber, 20-30% ostial, 30% distal stenosis at bifurcation LAD -large caliber, calcified, proximal luminal regularities, mid LAD stent widely patent, earlydistal LAD 98% stenosis just after takeoff of small D3. Remainder of LAD without significant disease and wraps around apex. Jailed small to medium caliber D1 with 50% ostial stenosis. Circumflex -medium caliber, midsegment luminal irregularities. Large high OM1 without significant disease. Medium proximal OM2 75% stenosis. RCA -large caliber, dominant, 30% proximal, mid segment luminal regularities, 70% earlydistal focal stenosis. Medium RPDA, PLB without significant disease. Summary: 1. Severe multi-vessel coronary artery disease * 98% distal LAD. Widely patent mid LAD stent * 75% proximal OM2 * 70% earlydistal RCA * 20 to 30% ostial/distal LMCA 2. Borderline intracardiac filling pressure, LVEDP 18 3. Successful PCI of distal LAD with single drug-eluting stent (2.25 x 15 mm Xience; postdilated with 2.5 NC). 4. Successful PCI of proximal OM2 with single drug-eluting stent (2.5 x 18 mm Xience). See #1 above. (3) Elevated troponin: peak HS troponin was 128 2nd to #1 (4) Acute systolic (congestive) heart failure: Echo with EF 45-50%. Mildly reduced LV Fx 2nd to ischemic cardiomyopathy. Cannot rule out tachy-induced cardiomyopathy from chronic, uncontrolled a.fib but much less likely. Continue metoprolol 100mg BID; dose was titrated during the stay for improved a.fib rate control. Ultimately, in light of depressed EF, metoprolol tartrate should be transitioned over to metoprolol succinate. Continue LEATHA - lisinopril 2.5mg daily. Pt with significant dyspnea and LVEDP of 18 -- gave lasix 20mg po x 1 while here. Looked euvolemic at time of discharge. (5) Chronic deep vein thrombosis (DVT) of left lower extremity: chronic DVT in superficial femoral vein and popliteal vein. discussed this finding in detail with patient. ideally she is willing to take anticoagulation in light of her permanent a.fib as well as the chronic DVT. she is unwilling to take any anticoagulation at this time citing multiple reasons for avoiding anticoagulation (prior trials of DOACs caused edema, family member was on coumadin and did poorly, etc). (6) Atrial fibrillation: Patient had poor rate control with activity (120s with getting up to go to bathroom; 140s and 150s with walking down the hallway). Spent about 48 hours titrating her metoprolol. Ultimately landed on metoprolol tartrate 100mg BID. Rates with walking on this metoprolol dose were low 100s at discharge. Of note - diltiazem was discontinued. Patient is refusing anticoagulation at this time. (7) Dyslipidemia: cont crestor. lipid parameters - LDL 102. HDL 32. trigs 95. has not done well on statins in the past but during the visit she tolerated the crestor 10mg daily. (8) CRPS (complex regional pain syndrome) type I: not on specific therapy for such at home. (9) COPD (chronic obstructive pulmonary disease): patient reports no prior tobacco usage. she is not on inhalers at home. no emphysematous changes on cxr. I don't see PFTs to substantiate a dx of obstructive lung disease. she does have significant RODRIGUES as well as a drop in O2 sats to the low 90s with walking. recommend outpatient pulmonary referral for PFTs, etc. (10) GERD (gastroesophageal reflux disease): would keep on protonix 40mg daily given GERD tendencies + DAPT. (11) HTN (hypertension): controlled with BB & LEATHA inhibitor (12) Ischemic cardiomyopathy: see #4 above (13) History of pulmonary embolus (PE): noted dopplers this admission with chronic DVT of LLE patient refusing anticoagulation at this time counseled about risk of recurrent DVT, recurrent PE, and stroke (due to chronic, permanent a.fib) Total Time Total Time Spent Total Time Spent (In Minutes): 45 Discharge Plan Discharge Items Patient Disposition: Home - Self-Care Reason For Visit: CHEST PAIN, ELEVATED TROPONIN Discharge Diagnosis: 1. acute coronary syndrome 2. coronary artery disease with placement of 2 stents 3. atrial fibrillation 4. chronic appearing left thigh DVT 5. reflux disease 6. chronic shortness of breath due to reported history of lung disease 7. mild ischemic cardiomyopathy (mildly reduced heart function due to coronary artery disease) Activity: Per Instructions section Sexual Activity: Wait until after follow-up appointment Exercise/Sports: Wait until after follow-up appointment Driving/Machine Use: Resume 3 days after discharge Non-emergency contact: Primary Care Provider and Painter Assistant Call non-emergency contact if: you have any medication questions and your symptoms worsen Follow-up/Referrals: Patric Mas MD [Physician] - 04/03/23 1:30 pm Patric Dee MD [Primary Care Provider] - 03/21/23 10:45 am (1 week) Diet: Heart Healthy Fluids: 1800ml (7 cups) Addtl Attending Provider Instructions: Mrs Chilel, You were hospitalized due to multiple episodes of chest pain. Your pain was due to blocked coronary arteries of the heart. This is called "coronary artery disease" (see handout). Coronary artery disease is when you have plaque build-up/cholesterol build-up in the arteries of your heart. This process leads to heart attacks. Dr Armando Mas performed heart catheterization and all 3 major vessels of the heart had significant/severe blockages. Dr Mas placed 2 stents across 2 blocked arteries. You have a 3rd artery that is clogged and Dr Mas will watch this very carefully. Your echocardiogram (heart ultrasound) showed that your heart's squeezing capacity was mildly reduced. The coronary artery disease is the likely cause of the mild weakness of the heart muscle. We call this "ischemic cardiomyopathy" or mild congestive heart failure. With time and proper heart medications the heart squeezing capacity can improve. Your heart function level was 45-50% (normal is 50% or higher, with most people being 60-65%). During your stay we also saw your a.fib was under poor control. We changed your diltiazem medication over to metoprolol tartrate. The metoprolol will control the a.fib, will help the heart function/pumping ability, and also help your coronary artery disease. Recommendations - 1. START the following heart medications - * metoprolol tartrate - 100mg twice daily every day, first dose TONIGHT * clopidogrel 75mg once daily - this is for your heart stents; first dose TOMORROW * lisinopril 2.5mg once daily - this is for your heart; first dose TOMORROW * rosuvastatin 10mg once daily - this is for your heart and your cholesterol; first dose TOMORROW 2. CONTINUE the following - * aspirin 81mg daily 3. STOP the following - * diltiazem 240mg daily 4. For chest pain, shortness of breath, or any symptom that is similar to the s ymptoms that brought you to the hospital please take - * nitroglycerin tab - 1 every 5 minutes under the tongue as needed for chest pain (or other symptoms as above), max 3 in 15 minutes * this is an emergency medication - hopefully you never have to take it - keep it with you at all times especially when you leave your house 5. For reflux/heartburn - * pantoprazole 40mg once daily each morning 6. Please consider going back on a blood thinner medication (anticoagulant) in the future. You have 2 reasons to be on one -- first, for the a.fib; second, for the chronic blood clot in the left leg. If you reconsider please talk to Dr Mas about this. 7. If possible please monitor your blood pressure and heart rate each day at home. Write these numbers down in a notebook and show these to your family doctor as well as Dr Mas. 8. Check your weight each morning after waking up. Also write these down in a notebook. If you notice weight gains of more than 2-3 pounds over 1-[address] Mas or Dr Murphy know right away. The weight gain can be a sign of fluid retention due to heart problems. Follow-up - see separate section Return to [facility] if - * you have chest pains * you have to use nitroglycerin tablets under the tongue * you have worsening shortness of breath * you have any symptoms that are similar to what brought you to the hospital for this admission * any other concerns It was our pleasure to care for you! Addtl Card Cutter Provider Instructions: ACTIVITY RECOMMENDATIONS following your heart catheterization: It is common to feel weak and fatigue for a few days. * Do not drive or operate any motorized equipment for the next three days. * Limit stair usage (2 or 3 trips a day only) for the next three days. * Do not lift anything heavier than 10 pounds for the next three days. * Do not engage in vigorous exercise or any sports until cleared by Dr Mas from cardiology. * You may shower at this time, but do not immerse the right wrist for three days. Cleanse the site on the right wrist gently with soap and water. SPECIAL CARE INSTRUCTIONS: * You may replace the pressure dressing or band-aid the morning after the procedure. * After your procedure, it is normal to have a small bruise or small lump at the site. Examine your site daily for any change in the bruise or lump, redness, swelling, drainage or numbness. Notify your doctor if any change. BLEEDING: * If there is a small amount of bleeding at the site, lie down and apply firm pressure with a clean cloth for ten minutes. When the bleeding stops, lie quietly keeping the procedure limb straight for six hours. Notify your doctor as soon as possible. * If the bleeding does not stop after ten minutes or if there is a large amount of bleeding or spurting, call 911 immediately. Continue to lie down and hold firm pressure until help arrives. SKIN IRRITATION: * You may experience some redness and/or swelling in the area where radiation was administered. If any skin irritation occurs, please contact your family physician. Home Care following a heart event: * Take your medications exactly as directed. Don't skip doses. * Only return to normal activity when your doctor says it's okay. * Ask your doctor about joining a heart rehabilitation program. * Tell your doctor if you are feeling depressed. Feelings of sadness are common after having had a heart event, but it is important that you speak to someone if you are feeling overwhelmed by these feelings. * If you are having chest pain, call 911 for an ambulance. Do NOT drive yourself to the hospital. * Ask your family members to learn CPR. * Learn to take your own blood pressure and pulse. Keep a record of your results. Ask your doctor when you should seek emergency medical attention. He or she will tell you which blood pressure reading is dangerous. Lifestyle Changes: * Maintain a healthy weight. Get help to lose any extra pounds. * Cut back on salt. * Limit canned, dried, packaged, and fast foods. * Don't add salt to your food. * Season foods with herbs instead of salt when you cook. * Break the smoking habit. Enroll in a stop-smoking program to improve your chances of success. * Limit fatty foods. * Ask your doctor about having your lipid levels checked regularly. * Build up your activity according to your doctor's recommendation. * Ask your doctor when it's okay to resume sexual activity. * Tell your doctor about any erectile dysfunction (ED) medication you are taking. Some ED medications are not safe if you take certain heart medications. * Try to manage stress. Pending Studies at Discharge: No Stand-Alone Forms: My [facility], Smoking Cessation Medications and DC Order Prescriptions: New metoprolol tartrate 100 mg Tablet 100 mg PO BID Qty: 60 2RF Rx Instructions: for your heart clopidogrel 75 mg Tablet 75 mg PO QAM Qty: 30 2RF Rx Instructions: to keep your heart stents open nitroglycerin [Nitrostat] 0.4 mg Tablet, Sublingual 0.4 mg sublingual Q5M PRN (Reason: chest pain) Qty: 1 0RF Rx Instructions: max 3 doses in 15 minutes. lisinopril [Zestril] 5 mg Tablet 2.5 mg PO QAM Qty: 30 2RF Rx Instructions: for your heart rosuvastatin 10 mg Tablet 10 mg PO DAILY Qty: 30 2RF Rx Instructions: for plaque build-up/cholesterol pantoprazole 40 mg Tablet,Delayed Release (Dr/Ec) 40 mg PO DAILY Qty: 30 2RF Rx Instructions: for heartburn/reflux disease. Continued aspirin [Ecotrin Low Strength] 81 mg Tablet,Delayed Release (Dr/Ec) 81 mg PO DAILY Qty: 90 3RF Discontinued diltiazem HCl 240 mg capsule,extended release 24 hr 240 mg PO DAILY Qty: 90 3RF Discharge Orders: Discharge Order (Routine); Ordered 03/12/23 Ordered By: Suraj Garay/Other Patient Handouts: CAD, AFib Preventing Stroke Admission Data Admit Date/Time: 03/08/23 18:01 Attending Provider: Suraj Goetz Admit Provider: Suraj Stratton Primary Care Provider: Patric Dee Other Providers: Patric Mas ; Suraj Stratton ; Armando Garcia Other Interventions: Discharge Summary Assessment (RN) Last Done: 03/12/23 14:12 Coding Level of Care Code 92614 INP/OBS DISCH >30 MIN Diagnoses Acute coronary syndrome I24.9 Coronary artery disease I25.10 Elevated troponin R77.8 Acute systolic (congestive) heart failure I50.21 Chronic deep vein thrombosis (DVT) of left lower extremity I82.502 Atrial fibrillation I48.91 Dyslipidemia E78.5 CRPS (complex regional pain syndrome) type I G90.50 COPD (chronic obstructive pulmonary disease) J44.9 GERD (gastroesophageal reflux disease) K21.9 HTN (hypertension) I10 Ischemic cardiomyopathy I25.5 History of pulmonary embolus (PE) Z86.711
[2023-03-12] MEDS ORDERED: METOPROLOL TARTRATE 100 MG TAB PO SCH (21:00)
--- NOTE | 2023-03-13 22:20 | Electrocardiogram Report ---
Test Reason : Blood Pressure : / mmHG Vent. Rate : 090 BPM Atrial Rate : 080 BPM P-R Int : 000 ms QRS Dur : 082 ms QT Int : 396 ms P-R-T Axes : 000 004 -35 degrees QTc Int : 485 ms Atrial fibrillation with premature ventricular or aberrantly conducted complexes Low voltage QRS Nonspecific T wave abnormality Prolonged QT Abnormal ECG When compared with ECG of 09-MAR-2023 17:08, No significant change was found Confirmed by Dwight Hein ([id number]) on 03/13/2023 10:20:00 PM Referred By: REFERRED SELF Confirmed By:Dwight Hein
--- NOTE | 2023-03-14 09:24 | Coding Query ---
CODING QUERY To promote full compliance with coding requirements relating to patient care, provider participation is requested in all cases of production sampler uncertainty. Please assist us with the question(s) below: Coding Question(s): Acute systolic congestive heart failure is documented in the 03/12 discharge summary. However, cardiology documents that there are no signs of heart failure on exam in the 03/11 and 03/12 progress notes. Based on your medical judgement, can you clarify the conflicting diagnoses. Patient does indeed have acute systolic CHF. Her systolic CHF is due to ischemic cardiomyopathy. EF is reduced in the 40s. The "acute systolic CHF" dx is accurate. Thank you! Suraj Physician's Response(s): Thank you Sharmaine LUNA
== END 2023-03-12 15:13 | disposition home or self-care (01) | DRG 246 ==
LOC: ED 14:56 → 4W 18:01 → SUATTDRO 18:01 → 4W 19:52

== ENCOUNTER 2024-04-03 20:57 | Inpatient (IN) ==
--- NOTE | 2024-04-03 21:24 | Emergency Department Note ---
Impression & Plan RODRIGUES (dyspnea on exertion), Dizziness, DVT (deep venous thrombosis) ED Provider Note NAME: ELSI WARD AGE: 74 SEX: F : 1950 ARRIVES VIA: Walk-In INFORMANT: Patient, ED PROVIDER(S): Johnny Bernabe DO CHIEF COMPLAINT: Dizziness HPI: The patient is a 74-year-old female who presented to the emergency department for an evaluation of dizziness. She has a history of coronary artery disease but also has a history of DVT pulmonary emboli and heart failure who presented to the emergency department for an evaluation of cardiac issues. The patient was concerned because she has been having these symptoms over the course the last few days. Her family told her that she should come to the emergency department for further evaluation. The patient denies having any chest pain at this time. She does complain of lower extremity swelling left greater than right. She denies having any fever or cough. She has had no recent trauma. ROS: See above HPI for pertinent positives & negatives. A total of 10 systems reviewed and were otherwise negative. PAST MEDICAL HISTORY: See Below PAST SURGICAL HISTORY: See Below FAMILY HISTORY: See Below SOCIAL HISTORY: See Below HOME MEDICATIONS: See Below ALLERGIES: See Below VITALS: See Below PHYSICAL EXAMINATION: GENERAL: Patient is awake alert in no acute distress patient is resting comfortably and showing no signs of anxiety EYES: The conjunctivae are clear. The pupils are round and reactive. EARS, NOSE, MOUTH AND THROAT: The nose is without any evidence of any deformity. NECK: The neck is nontender and supple. RESPIRATORY: Normal respiratory effort is noted there is no evidence of wheezing rhonchi or rales CARDIOVASCULAR: Irregular heart sounds were noted to auscultation. There is no definite murmur. GASTROINTESTINAL: The abdomen is soft. Abdomen is nontender. MUSCULOSKELETAL/EXTREMITIES: There is no evidence of gross deformity full range of motion is noted in the hips and shoulders. SKIN: Skin is warm and dry. Pedal edema was noted bilaterally left greater than right. NEUROLOGIC: Patient is awake alert and oriented x3 MEDICAL DECISION MAKING: The patient is a 74-year-old female who presented to the emergency department for an evaluation of dyspnea on exertion discomfort in her chest as well as dizziness. The patient has a history of coronary artery disease. She was initially telling me that she was concerned about the possibility of a heart attack. Further workup was undertaken and reviewed the patient's previous medical records does show that she has a history of coronary artery disease but also she has had venous thromboembolic disease as well. She was complaining of leg swelling so an ultrasound was obtained. This appears to be consistent with some degree of chronic as well as possibly subacute DVT. There is a nonocclusive DVT noted. I discussed the patient's condition with her. I discussed the limitations of the emergency department workup for chest pain with her. Ultimately given her findings I discussed her condition with the on-call [facility] hospitalist. They have agreed to evaluate the patient in the emergency department for further management and disposition. Triage Nursing notes reviewed. Prior medical records reviewed Vital Signs: reviewed and remarkable for elevated blood pressure. Differential diagnosis: Cardiac ischemia, aortic dissection, pulmonary embolism, pneumothorax, pneumonia, pericarditis, myocarditis, esophageal rupture, GERD, cholecystitis, pancreatitis, musculoskeletal, as well as other pathologies. ER treatment provided: See below Diagnostics interpreted by me: ECG: EKG was obtained in the emergency department. My interpretation is atrial fibrillation at 84 bpm. No PVCs were noted. Nonspecific ST segment abnormalities were noted. This was compared to a tracing from March 10, 2023. No changes were noted. Cardiac Monitoring: An order was placed for continuous cardiac monitoring. The monitor shows a rate of 78 bpm with atrial fibrillation. Laboratory studies: As stated above and show below. Imaging studies: See below. Radiographic imaging was reviewed by myself Consultation(s): I discussed this case with Dr. Devine [facility]. Past Med/Surg History Problem List (Updated 04/04/24 @ 05:38 by Richard Estevez MD) Thyroid nodule History of heart artery stent Atrial fibrillation Coronary artery disease Chest pressure DVT (deep venous thrombosis) (Acute) Dizziness (Acute) RODRIGUES (dyspnea on exertion) (Acute) History of pulmonary embolus (PE) Acute systolic (congestive) heart failure Abnormal echocardiogram Elevated brain natriuretic peptide (BNP) level Exertional chest pain (Acute) S/P ORIF (open reduction internal fixation) fracture Left wrist Fx. left wrist CHF (congestive heart failure) (Chronic) Gouty arthritis of toe of right foot (Acute) Medical History Ischemic cardiomyopathy Chronic deep vein thrombosis (DVT) of left lower extremity Acute coronary syndrome Dyslipidemia Coronary artery disease Atrial fibrillation Mitral regurgitation HTN (hypertension) GERD (gastroesophageal reflux disease) COPD (chronic obstructive pulmonary disease) Surgical History History of heart artery stent History of cardiac cath Stented coronary artery Family History Father Hypertension Social History Smoking Status: Never smoker Second Hand Exposure: No; Do You Dip or Chew Tobacco: No; Hx Alcohol Use: No Hx Substance Use: No Preferred Language: Upper Sorbian Communication Ability: Effective Shampoo Technician Required: No Beliefs That Will Affect Care: None marital status: Current Living Situation: Family Current Living Situation Comment: Lives at home w/ grandson current occupational status: retired current occupation: retired Other Information That Helps Us Care for You: No Feels Safe at Home: Yes Safety Concerns: Feels Safe At This Time Assistive Devices: None Allergies Allergies Allergy/AdvReac Type Severity Reaction Status Date / Time rivaroxaban AdvReac Mild stomach Verified 04/03/24 23:32 upset Home Meds Home Medications Medication Instructions Recorded Confirmed famotidine 20 mg tablet 10 mg PO BID 09/01/23 04/03/24 metoprolol tartrate 50 mg tablet 100 mg PO BID 03/04/24 04/03/24 Previous Rx's Medication Instructions Recorded aspirin 81 mg tablet,delayed 81 mg PO DAILY #90 tabs 10/15/18 release (Ecotrin Low Strength) nitroglycerin 0.4 mg sublingual 0.4 mg sublingual Q5M PRN chest 03/12/23 tablet (Nitrostat) pain #1 btl pantoprazole 40 mg tablet,delayed 40 mg PO DAILY #30 tabs 03/12/23 release clopidogrel 75 mg tablet 75 mg PO QAM #90 tabs 03/04/24 lisinopril 5 mg tablet 2.5 mg (1/2 x 5 mg) PO .COMPLEX 03/04/24 #30 tabs ezetimibe 10 mg tablet (Zetia) 10 mg PO DAILY #90 tabs 03/22/24 Results & Data (ED) Vital Signs Vital Signs - 24 hr 04/03/24 21:00 04/03/24 21:16 04/03/24 21:26 Temperature 36.4 C L Temperature Source Temporal Artery Scan Pulse Rate 84 91 H Pulse Rate [Finger] Pulse Rate from SpO2 Sensor Pulse Rhythm [Finger] Pulse Strength [Finger] Respiratory Rate 20 Respiratory Effort / Characteristics Non-Labored Spontaneous Respiratory Depth Normal Respiratory Pattern Regular Blood Pressure 155/86 H Blood Pressure [Right Arm] Blood Pressure Mean 109 Blood Pressure Mean [Right Arm] Blood Pressure Position Sitting Blood Pressure Position [Right Arm] Pulse Oximetry 94 Oxygen Delivery Method Room Air Room Air Sepsis Recent Fever Within 48 Hours No Sepsis New/Unexplained Change in Mental Status No Sepsis Action Taken by Nursing No Action Required 04/03/24 21:26 04/03/24 22:09 04/03/24 23:21 Temperature Temperature Source Pulse Rate 70 70 Pulse Rate [Finger] Pulse Rate from SpO2 Sensor 73 Pulse Rhythm [Finger] Pulse Strength [Finger] Respiratory Rate 24 19 Respiratory Effort / Characteristics Respiratory Depth Respiratory Pattern Blood Pressure 151/94 H 140/96 Blood Pressure [Right Arm] Blood Pressure Mean 113 110 Blood Pressure Mean [Right Arm] Blood Pressure Position Blood Pressure Position [Right Arm] Pulse Oximetry 94 93 Oxygen Delivery Method Room Air Room Air Sepsis Recent Fever Within 48 Hours Sepsis New/Unexplained Change in Mental Status Sepsis Action Taken by Nursing 04/03/24 23:51 04/04/24 00:56 04/04/24 01:32 Temperature Temperature Source Pulse Rate 78 Pulse Rate [Finger] 78 87 Pulse Rate from SpO2 Sensor Pulse Rhythm [Finger] Regular Regular Pulse Strength [Finger] Normal Normal Respiratory Rate 20 25 H Respiratory Effort / Characteristics Non-Labored Spontaneous Labored Short of Breath Respiratory Depth Normal Normal Respiratory Pattern Regular Tachypnea Blood Pressure Blood Pressure [Right Arm] 140/104 H 149/115 H Blood Pressure Mean Blood Pressure Mean [Right Arm] 116 126 Blood Pressure Position Blood Pressure Position [Right Arm] Lying Lying Pulse Oximetry 93 94 Oxygen Delivery Method Room Air Room Air Sepsis Recent Fever Within 48 Hours Sepsis New/Unexplained Change in Mental Status Sepsis Action Taken by [place] Medications Current Medication List: was personally reviewed by me Laboratory Data Attestation: I reviewed the patient's lab results. 04/04/24 04:50 04/04/24 04:50 Lab Results 04/03/24 04/03/24 04/04/24 Range/Units 21:19 23:05 00:52 WBC 7.80 (4.8-10.8) K/ul RBC 4.67 (4.20-5.40) M/uL Hgb 14.1 (12.0-16.0) g/dl Hct 45.0 (37.0-47.0) % MCV 96.4 (80.0-100.0) fL MCH 30.2 (25.0-34.0) pg MCHC 31.3 L (32.0-36.0) g/dL RDW Std Deviation 49.1 H (36.4-46.3) fL RDW Coeff of [place] 13.9 (11.5-14.5) % Plt Count 168 (130-400) K/uL MPV 10.2 (9.4-12.4) fL Immature Gran % (Auto) 0.3 % Neut % (Auto) 57.6 % Lymph % (Auto) 30.6 % [place] % (Auto) 9.5 % Eos % (Auto) 1.4 % Baso % (Auto) 0.6 % Neut # (Auto) 4.49 (1.40-6.50) K/uL Lymph # (Auto) 2.39 (1.20-3.40) K/uL [place] # (Auto) 0.74 H (0.11-0.59) K/uL Eos # (Auto) 0.11 (0.00-0.50) K/uL Baso # (Auto) 0.05 (0.00-0.20) K/uL Immature Gran # (Auto) 0.02 (0.01-0.20) K/uL PT Cancelled 11.9 INR Cancelled 1.1 APTT Cancelled 25 PTT Ratio Cancelled 0.9 Sodium 139 (136-145) mmol/L Potassium 4.5 (3.5-5.1) mmol/L Chloride 102 (98-107) mmol/L Carbon Dioxide 30 (21-32) mmol/L Anion Gap 7 (3-11) BUN 20 (6-23) mg/dl Creatinine 0.85 (0.6-1.2) mg/dl Est Cr Clr Drug Dosing 59.3 ml/min Est GFR ( Amer) 77.1 ml/min Est GFR (Non-Af Amer) 66.6 ml/min BUN/Creatinine Ratio 23.5 H (10-20) Glucose 115 H (70-99(Fasting)) mg/dl Calcium 9.5 (8.6-10.3) mg/dl Total Bilirubin 0.9 (0.2-1.0) mg/dl AST 22 (13-39) U/L ALT 13 (7-52) U/L Alkaline Phosphatase 108 H (34-104) U/L Troponin I High Sens 12.2 (0-14) pg/ml Total Protein 7.8 (6.0-8.3) gm/dl Albumin 4.0 (3.4-5.0) gm/dl Globulin 3.8 (2.5-4.0) gm/dl Albumin/Globulin Ratio 1.1 (0.9-2) Lipase 20 (11-82) U/L Urine Color Yellow Urine Appearance Clear (Clear) Urine pH 7.0 (4.5-7.5) Ur Specific [place] 1.013 (1.000-1.030) Urine Protein Negative (Negative) Urine Glucose (UA) Negative (Negative) Urine Ketones Negative (Negative) Urine Blood Negative (Negative) Urine Nitrite Negative (Negative) Urine Bilirubin Negative (Negative) Urine Urobilinogen Negative (Negative) Ur Leukocyte Esterase Negative (Negative) Administered Medications Heparin Sodium/Dextrose (Heparin Sodium/Dextrose) 25,000 units in 500 mls @ 16 mls/hr IV .Q24H [facility]; Protocol Stop: 05/04/24 01:59 Last Admin: 04/04/24 03:18 Dose: 800 units/hr, 16 mls/hr Documented By: JOSHUA Co-signed By: PINO Discontinued Medications Acetaminophen (Acetaminophen 325 Mg Tab) 650 mg PO NOW STA Stop: 04/03/24 23:56 Last Admin: 04/04/24 00:01 Dose: 650 mg Documented By: JOSHUA Aspirin (Aspirin Chew 324 Mg) 324 mg PO NOW STA Stop: 04/04/24 00:35 Last Admin: 04/04/24 00:49 Dose: 324 mg Documented By: JOSHUA Furosemide (Furosemide 40 Mg/4 Ml Vial) 40 mg IV ONE ONE Stop: 04/04/24 05:24 Last Admin: 04/04/24 05:34 Dose: 40 mg Documented By: CEDRIC Heparin Sodium/Dextrose (Heparin Iv Adult Wt-Based Low-Dose *No* Initial Bolus Protocol) 1 each IV ONE STA; Protocol Stop: 04/04/24 01:36 Last Admin: 04/04/24 03:19 Dose: Not Given Documented By: JOSHUA Ioversol (Optiray 320 125ml) 119 ml IV ONCE ONE Stop: 04/04/24 01:15 Last Admin: 04/04/24 01:15 Dose: 119 ml Documented By: ALETHEA Imaging Data Attestation: I personally reviewed and interpreted this imaging study as follows: My Impression: 1 view chest x-ray was obtained in the emergency department. My interpretation is poor inspiratory effort with cardiomegaly, there is no free air, this was compared to a chest x-ray from March 08, 2023. No specific changes were noted, final report pending. Radiologist's Impression: Chest X-Ray 04/03/24 21:14 XR chest 1V portable CLINICAL HISTORY: Chest pain, nonspecific COMPARISON STUDY: Chest radiograph March 08, 2023 FINDINGS: Marked cardiomegaly is unchanged. There is no radiographic evidence for pulmonary edema. There is no pneumothorax or pleural effusion. There is no consolidation to suggest pneumonia. IMPRESSION: No acute cardiopulmonary findings. Stable cardiomegaly. ACT 112: Negative or not required by law. Electronically signed by: Joby Quintanilla M.D. 04/04/2024 8:06 AM Venous Doppler Study 04/03/24 21:16 Exam(s): US VENOUS BILATERAL LOWER EXTREMITIES EXAM: US Duplex Bilateral Lower Extremities Veins CLINICAL HISTORY: Reason for exam: swelling. TECHNIQUE: Real-time duplex ultrasound scan of the bilateral lower extremity veins integrating B-mode two-dimensional vascular structure, Doppler spectral analysis, color flow Doppler imaging and compression. COMPARISON: 03/08/2023 FINDINGS: Right deep veins: No DVT in the right common femoral, femoral, or proximal deep femoral. Nonocclusive DVT seen in the right popliteal vein. The veins otherwise demonstrate normal color flow, are normally compressible, with normal phasic flow and/or augmentation response. Right superficial veins: Unremarkable. No thrombus in the visualized right great saphenous vein. Left deep veins: Demonstrates nonocclusive chronic thrombus in the distal superficial femoral and popliteal veins. No acute DVT in the left common femoral, and proximal femoral, or proximal deep femoral veins . . Left superficial veins: Unremarkable. No thrombus in the visualized left great saphenous vein. Soft tissues: No acute findings. No popliteal cyst. IMPRESSION: Nonocclusive thrombus seen in the right popliteal vein. Likely a chronic nonocclusive thrombus present in the distal left superficial femoral and left popliteal veins. . Electronically signed by: He Pollard MD, DABR 04/04/24 00:42 AM Chest CTA 04/04/24 00:29 Exam(s): CTA CHEST IV Amt: 119 cc's optiray 320 EXAM: CT Angiography Chest With Intravenous Contrast CLINICAL HISTORY: Reason for exam: PE. TECHNIQUE: Axial computed tomographic angiography images of the chest with intravenous contrast. Automated exposure control was utilized for the study. A dose lowering technique was utilized adhering to the principles of ALARA. MIP reconstructed images were created and reviewed. COMPARISON: CTA chest: 02/18/2017 FINDINGS: Pulmonary arteries: No pulmonary embolism. There is up to 36 mm dilated main pulmonary artery. Aorta: An ectatic ascending aorta: 40 mm in diameter. Calcified atherosclerotic plaques Lungs: Central airways are patent. Bilateral bronchial wall mild cuffing, pulmonary interstitial/septal thickening and basilar multifocal linear atelectasis. Mild pulmonary emphysema. No mass. No consolidation. Pleural space: Unremarkable. No significant effusion. No pneumothorax. Heart: Severe cardiomegaly. No significant pericardial effusion. Densely calcified multivessel coronary arterial atherosclerosis. Bones/joints: Osteopenia. No acute fracture. No dislocation. Markedly increased thoracic kyphosis. Multilevel degenerative spondylitic changes. Soft tissues: Bilateral enlarged thyroid lobes with multiple hypodense and ring calcified nodules. Lymph nodes: Multiple borderline enlarged mediastinal, prevascular and hilar lymph nodes increased in size and number since prior comparison.. Other findings: Inferior vena caval reflux of IV contrast, sign of a right-sided heart disease (series 4 image 18). IMPRESSION: No pulmonary embolism. An enlarged main pulmonary artery. Severe cardiomegaly. Likely mild chronic pulmonary interstitial edema. Clinical correlation is advised. Densely calcified multivessel coronary arterial and aortic atherosclerosis. An ectatic ascending aorta: 40 mm in diameter. IVC reflux of contrast, sign of and right heart dysfunction. Recommend clinical correlation. Bilaterally markedly enlarged thyroid lobes with multiple hypodense and ring calcified nodules, increased in size/number since prior comparison. Sonographic correlation is recommended. . Electronically signed by: He Pollard MD, DABR 04/04/24 03:29 AM Discharge Plan Visit Data Chief Complaint: Shortness of Breath/Dyspnea Stated Complaint: SOB,DIZZY ED Provider: Johnny Bernabe Discharge Problem: RODRIGUES (dyspnea on exertion), Dizziness, DVT (deep venous thrombosis) Patient Disposition: Being Evaluated by Hospitalist Discharge Instructions Interventions: ED Discharge Assessment Last Done: 04/04/24 02:30 Discharge Problem: DVT (deep venous thrombosis) Qualifiers: DVT location: lower extremity Affected thrombotic vein of extremity: u nspecified vein of extremity Chronicity: unspecified Laterality: unspecified laterality Qualified Code(s): I82.409 - Acute embolism and thrombosis of unspecified deep veins of unspecified lower extremity
[2024-04-03 21:37] LABS: Basophils # (auto) 0.05 K/uL (0.00-0.20); Basophils % (auto) 0.6 %; Eosinophils # (auto) 0.11 K/uL (0.00-0.50); Eosinophils % (auto) 1.4 %; Hemoglobin 14.1 g/dl (12.0-16.0); Immature Granulocytes # (auto) 0.02 K/uL (0.01-0.20); Immature Granulocytes % (auto) 0.3 %; Lymphocytes # (auto) 2.39 K/uL (1.20-3.40); Lymphocytes % (auto) 30.6 %; Mean Corpuscular Hemoglobin 30.2 pg (25.0-34.0); Mean Corpuscular Hgb Conc 31.3 g/dL (32.0-36.0); Mean Corpuscular Volume 96.4 fL (80.0-100.0); Mean Platelet Volume 10.2 fL (9.4-12.4); Monocytes # (auto) 0.74 K/uL (0.11-0.59); Monocytes % (auto) 9.5 %; Neutrophils # (auto) 4.49 K/uL (1.40-6.50); Neutrophils % (auto) 57.6 %; Platelet Count 168 K/uL (130-400); RDW Coefficient of Variation 13.9 % (11.5-14.5); RDW Standard Deviation 49.1 fL (36.4-46.3); Red Blood Count 4.67 M/uL (4.20-5.40)
[2024-04-03 21:54] LABS: Albumin Globulin Ratio 1.1 (0.9-2); BUN Creatinine Ratio 23.5 (10-20); Bilirubin,Total 0.9 mg/dl (0.2-1.0); Calcium 9.5 mg/dl (8.6-10.3); Creatinine Clr Calc Pharmacy 59.3 ml/min; Est GFR (African American) 77.1 ml/min; Est GFR (Non-African American) 66.6 ml/min; Globulin 3.8 gm/dl (2.5-4.0); Potassium 4.5 mmol/L (3.5-5.1); Total Protein 7.8 gm/dl (6.0-8.3)
[2024-04-03 22:01] LABS: Troponin I High Sensitivity 12.2 pg/ml (0-14)
[2024-04-03 23:48] LABS: INR 1.1 (0.9-1.1); Partial Thromboplastin Ratio 0.9; Partial Thromboplastin Time 25 Seconds (21-31); Prothrombin Time 11.9 Seconds (9.0-12.0)
[2024-04-04] MEDS: ACETAMINOPHEN 325 MG TAB PO STA (00:01)
--- NOTE | 2024-04-04 00:43 | Ultrasound Report ---
Exam(s): US VENOUS BILATERAL LOWER EXTREMITIES EXAM: US Duplex Bilateral Lower Extremities Veins CLINICAL HISTORY: Reason for exam: swelling. TECHNIQUE: Real-time duplex ultrasound scan of the bilateral lower extremity veins integrating B-mode two-dimensional vascular structure, Doppler spectral analysis, color flow Doppler imaging and compression. COMPARISON: 03/08/2023 FINDINGS: Right deep veins: No DVT in the right common femoral, femoral, or proximal deep femoral. Nonocclusive DVT seen in the right popliteal vein. The veins otherwise demonstrate normal color flow, are normally compressible, with normal phasic flow and/or augmentation response. Right superficial veins: Unremarkable. No thrombus in the visualized right great saphenous vein. Left deep veins: Demonstrates nonocclusive chronic thrombus in the distal superficial femoral and popliteal veins. No acute DVT in the left common femoral, and proximal femoral, or proximal deep femoral veins . . Left superficial veins: Unremarkable. No thrombus in the visualized left great saphenous vein. Soft tissues: No acute findings. No popliteal cyst. IMPRESSION: Nonocclusive thrombus seen in the right popliteal vein. Likely a chronic nonocclusive thrombus present in the distal left superficial femoral and left popliteal veins. . Electronically signed by: He Pollard MD, BRANDONR 04/04/24 00:42 AM
[2024-04-04] MEDS: ASPIRIN CHEW 324 MG PO STA (00:49)
[2024-04-04 01:01] LABS: Appearance Urine Clear (Clear); Bilirubin Urine Negative (Negative); Blood Urine Negative (Negative); Color Urine Yellow; Glucose Urine UA Negative (Negative); Ketones Urine Negative (Negative); Leukocyte Esterase Urine Negative (Negative); Nitrite Urine Negative (Negative); Protein Urine Negative (Negative); Specific Gravity Urine 1.013 (1.000-1.030); Urobilinogen Urine Negative (Negative)
[2024-04-04] MEDS: OPTIRAY 320 125ml IV ONE (01:15)
--- NOTE | 2024-04-04 01:42 | History & Physical Report ---
Date of Service April 04, 2024 Assessment & Plan (1) Chest pressure: (2) Dizziness: (3) DVT (deep venous thrombosis): (4) History of pulmonary embolus (PE): (5) Acute systolic (congestive) heart failure: (6) CRPS (complex regional pain syndrome) type I: (7) Atrial fibrillation: (8) Coronary artery disease: (9) History of heart artery stent: (10) Thyroid nodule: Plan Chest pressure/dyspnea on exertion/acute HFmrEF exacerbation/atrial fibrillation/CAD/history of coronary stent- The patient will be admitted to telemetry for serial cardiac enzymes, serial EKG's, cardiac rhythm monitoring and a 2-D echocardiogram with Dopplers. Continue aspirin, clopidogrel, metoprolol tartrate and lisinopril Patient agrees to start anticoagulation with heparin IV, to combine treatment for DVT Give furosemide 40 mg IV x 1, due to development of mild hypoxia overnight and suggestion of chronic interstitial pulmonary edema on CTA Follows with Dr. Armando Mas, who should be consulted for Friday, 04/05 Lower extremity DVTs/history of PE- Venous Doppler with new nonocclusive right popliteal DVT, and likely chronic left distal superficial femoral vein and popliteal vein thrombosis CTA PE protocol negative for new PE Start heparin drip as noted above Patient reports issues with both Xarelto and apixaban in the past She can discuss with cardiology Dr. Mas regarding what long-term anticoagulation she would like to use Hyperlipidemia- Continue Zetia Has statin intolerance GERD- Continue pantoprazole and famotidine History of Present Illness Chief Complaint: The patient presents to the emergency department with complaint of generalized leg pains, dyspnea on exertion, occasional dizziness, and chest pressure worsening over the past few days. 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 The patient presents to the emergency department with a few days of worsening dyspnea on exertion, intermittent dizziness and chest pressure. She reports that she has had some chronic bilateral leg pains, which have worsened over the past few weeks. She has been resistant to anticoagulation as recommended by her chancery clerk Dr. Armando Mas, having had side effects from apixaban and Xarelto in the past. Allergies Allergy/AdvReac Type Severity Reaction Status Date / Time rivaroxaban AdvReac Mild stomach Verified 04/03/24 23:32 upset Home Medications Medication Instructions Recorded Confirmed Type aspirin 81 mg tablet,delayed 81 mg PO DAILY #90 tabs 10/15/18 04/03/24 Rx release (Ecotrin Low Strength) nitroglycerin 0.4 mg sublingual 0.4 mg sublingual Q5M PRN chest 03/12/23 04/03/24 Rx tablet (Nitrostat) pain #1 btl pantoprazole 40 mg tablet,delayed 40 mg PO DAILY #30 tabs 03/12/23 04/03/24 Rx release famotidine 20 mg tablet 10 mg PO BID 09/01/23 04/03/24 History clopidogrel 75 mg tablet 75 mg PO QAM #90 tabs 03/04/24 04/03/24 Rx lisinopril 5 mg tablet 2.5 mg (1/2 x 5 mg) PO .COMPLEX 03/04/24 04/03/24 Rx #30 tabs metoprolol tartrate 50 mg tablet 100 mg PO BID 03/04/24 04/03/24 History ezetimibe 10 mg tablet (Zetia) 10 mg PO DAILY #90 tabs 03/22/24 04/03/24 Rx Past Med/Surg History Problem List (Updated 04/04/24 @ 05:38 by Richard Estevez MD) Thyroid nodule History of heart artery stent Atrial fibrillation Coronary artery disease Chest pressure DVT (deep venous thrombosis) (Acute) Dizziness (Acute) RODRIGUES (dyspnea on exertion) (Acute) History of pulmonary embolus (PE) Acute systolic (congestive) heart failure Abnormal echocardiogram Elevated brain natriuretic peptide (BNP) level Exertional chest pain (Acute) S/P ORIF (open reduction internal fixation) fracture Left wrist Fx. left wrist CHF (congestive heart failure) (Chronic) Gouty arthritis of toe of right foot (Acute) Medical History Ischemic cardiomyopathy Chronic deep vein thrombosis (DVT) of left lower extremity Acute coronary syndrome Dyslipidemia Coronary artery disease Atrial fibrillation Mitral regurgitation HTN (hypertension) GERD (gastroesophageal reflux disease) COPD (chronic obstructive pulmonary disease) Surgical History History of heart artery stent History of cardiac cath Stented coronary artery Family History Father Hypertension Social History Smoking Status: Never smoker Second Hand Exposure: No; Do You Dip or Chew Tobacco: No; Hx Alcohol Use: No Hx Substance Use: No Preferred Language: Burkinan Communication Ability: Effective Monotype Operator Required: No Beliefs That Will Affect Care: None marital status: Current Living Situation: Family Current Living Situation Comment: Lives at home w/ grandson current occupational status: retired current occupation: retired Other Information That Helps Us Care for You: No Feels Safe at Home: Yes Safety Concerns: Feels Safe At This Time Assistive Devices: None Review of Systems Review of Systems: The patient denies palpitations, cough, sore throat, fevers, chills, sweats, nausea, vomiting, diarrhea , constipation, abdominal pain, pelvic pain, blood in urine or stool, dysuria, urinary frequency or urgency, memory loss, loss of consciousness, rash, abnormal bruising or bleeding, focal or generalized weakness, numbness or tingling in arms, or night sweats. The review of systems is otherwise negative other than for that already noted above, and at least 10 systems have been reviewed. Physical Exam Physical Exam: The patient is awake, alert and oriented 3, well developed and well nourished, normocephalic and atraumatic, lying in bed and in no acute distress. HEENT--PERRL, EOMI, mucous membranes and oropharynx normal Neck--supple. No JVD. No bruits. Thyroid enlarged, trachea midline, no adenopathy. Heart--irregularly irregular. No murmurs, rubs or gallops. Lungs--overall diminished. No respiratory distress, no accessory muscle use. Abdomen--normal bowel sounds and soft. Nontender. Nondistended, no hernias or masses, no organomegaly. Extremities-- 1+ bilateral pretibial pitting edema. Dermatologic--normal skin turgor, normal color, no abnormal lymph nodes, no rash. Neurologic--cranial nerves II through XII grossly intact. Rheumatologic--normal range of motion. Psychiatric--normal affect. Results & Data Results & Data Vital Signs (Past 12 Hours) Vital Signs Temp Pulse Pulse Resp BP BP Pulse Ox 04/04/24 01:32 78 04/04/24 00:56 87 25 H 149/115 H 94 04/03/24 23:51 78 20 140/104 H 93 04/03/24 23:21 70 19 140/96 93 04/03/24 22:09 70 24 151/94 H 94 04/03/24 21:26 04/03/24 21:26 04/03/24 21:16 91 H 04/03/24 21:00 36.4 C L 84 20 155/86 H 94 O2 Del Method 04/04/24 01:32 04/04/24 00:56 Room Air 04/03/24 23:51 Room Air 04/03/24 23:21 Room Air 04/03/24 22:09 04/03/24 21:26 Room Air 04/03/24 21:26 Room Air 04/03/24 21:16 04/03/24 21:00 Room Air Laboratory Results Laboratory Results WBC 6.29 K/ul (4.8-10.8) 04/04/24 04:50 RBC 4.08 M/uL (4.20-5.40) L 04/04/24 04:50 Hgb 12.2 g/dl (12.0-16.0) 04/04/24 04:50 Hct 39.0 % (37.0-47.0) 04/04/24 04:50 MCV 95.6 fL (80.0-100.0) 04/04/24 04:50 MCH 29.9 pg (25.0-34.0) 04/04/24 04:50 MCHC 31.3 g/dL (32.0-36.0) L 04/04/24 04:50 RDW Std Deviation 48.1 fL (36.4-46.3) H 04/04/24 04:50 RDW Coeff of Virgil 13.8 % (11.5-14.5) 04/04/24 04:50 Plt Count 142 K/uL (130-400) 04/04/24 04:50 MPV 10.5 fL (9.4-12.4) 04/04/24 04:50 Immature Gran % (Auto) 0.3 % 04/04/24 04:50 Neut % (Auto) 62.7 % 04/04/24 04:50 Lymph % (Auto) 24.2 % 04/04/24 04:50 Pike % (Auto) 11.0 % 04/04/24 04:50 Eos % (Auto) 1.3 % 04/04/24 04:50 Baso % (Auto) 0.5 % 04/04/24 04:50 Neut # (Auto) 3.95 K/uL (1.40-6.50) 04/04/24 04:50 Lymph # (Auto) 1.52 K/uL (1.20-3.40) 04/04/24 04:50 Pike # (Auto) 0.69 K/uL (0.11-0.59) H 04/04/24 04:50 Eos # (Auto) 0.08 K/uL (0.00-0.50) 04/04/24 04:50 Baso # (Auto) 0.03 K/uL (0.00-0.20) 04/04/24 04:50 Immature Gran # (Auto) 0.02 K/uL (0.01-0.20) 04/04/24 04:50 PT 11.9 Seconds (9.0-12.0) 04/03/24 23:05 INR 1.1 (0.9-1.1) 04/03/24 23:05 APTT 25 Seconds (21-31) 04/03/24 23:05 PTT Ratio 0.9 04/03/24 23:05 Sodium 139 mmol/L (136-145) 04/03/24 21:19 Potassium 4.5 mmol/L (3.5-5.1) 04/03/24 21:19 Chloride 102 mmol/L (98-107) 04/03/24 21:19 Carbon Dioxide 30 mmol/L (21-32) 04/03/24 21:19 Anion Gap 7 (3-11) 04/03/24 21:19 BUN 20 mg/dl (6-23) 04/03/24 21:19 Creatinine 0.85 mg/dl (0.6-1.2) 04/03/24 21:19 Est Cr Clr Drug Dosing 59.3 ml/min 04/03/24 21:19 Est GFR ( Amer) 77.1 ml/min 04/03/24 21:19 Est GFR (Non-Af Amer) 66.6 ml/min 04/03/24 21:19 BUN/Creatinine Ratio 23.5 (10-20) H 04/03/24 21:19 Glucose 115 mg/dl (70-99(Fasting)) H 04/03/24 21:19 Calcium 9.5 mg/dl (8.6-10.3) 04/03/24 21:19 Total Bilirubin 0.9 mg/dl (0.2-1.0) 04/03/24 21:19 AST 22 U/L (13-39) 04/03/24 21:19 ALT 13 U/L (7-52) 04/03/24 21:19 Alkaline Phosphatase 108 U/L (34-104) H 04/03/24 21:19 Troponin I High Sens 12.2 pg/ml (0-14) 04/03/24 21:19 Total Protein 7.8 gm/dl (6.0-8.3) 04/03/24 21:19 Albumin 4.0 gm/dl (3.4-5.0) 04/03/24 21:19 Globulin 3.8 gm/dl (2.5-4.0) 04/03/24 21:19 Albumin/Globulin Ratio 1.1 (0.9-2) 04/03/24 21:19 Lipase 20 U/L (11-82) 04/03/24 21:19 Urine Color Yellow 04/04/24 00:52 Urine Appearance Clear (Clear) 04/04/24 00:52 Urine pH 7.0 (4.5-7.5) 04/04/24 00:52 Ur Specific Flora 1.013 (1.000-1.030) 04/04/24 00:52 Urine Protein Negative (Negative) 04/04/24 00:52 Urine Glucose (UA) Negative (Negative) 04/04/24 00:52 Urine Ketones Negative (Negative) 04/04/24 00:52 Urine Blood Negative (Negative) 04/04/24 00:52 Urine Nitrite Negative (Negative) 04/04/24 00:52 Urine Bilirubin Negative (Negative) 04/04/24 00:52 Urine Urobilinogen Negative (Negative) 04/04/24 00:52 Ur Leukocyte Esterase Negative (Negative) 04/04/24 00:52 Impressions Venous Doppler Study 04/03/24 21:16 Exam(s): US VENOUS BILATERAL LOWER EXTREMITIES EXAM: US Duplex Bilateral Lower Extremities Veins CLINICAL HISTORY: Reason for exam: swelling. TECHNIQUE: Real-time duplex ultrasound scan of the bilateral lower extremity veins integrating B-mode two-dimensional vascular structure, Doppler spectral analysis, color flow Doppler imaging and compression. COMPARISON: 03/08/2023 FINDINGS: Right deep veins: No DVT in the right common femoral, femoral, or proximal deep femoral. Nonocclusive DVT seen in the right popliteal vein. The veins otherwise demonstrate normal color flow, are normally compressible, with normal phasic flow and/or augmentation response. Right superficial veins: Unremarkable. No thrombus in the visualized right great saphenous vein. Left deep veins: Demonstrates nonocclusive chronic thrombus in the distal superficial femoral and popliteal veins. No acute DVT in the left common femoral, and proximal femoral, or proximal deep femoral veins . . Left superficial veins: Unremarkable. No thrombus in the visualized left great saphenous vein. Soft tissues: No acute findings. No popliteal cyst. IMPRESSION: Nonocclusive thrombus seen in the right popliteal vein. Likely a chronic nonocclusive thrombus present in the distal left superficial femoral and left popliteal veins. . Electronically signed by: He Pollard MD, DABR 04/04/24 00:42 AM Chest CTA 04/04/24 00:29 Exam(s): CTA CHEST IV Amt: 119 cc's optiray 320 EXAM: CT Angiography Chest With Intravenous Contrast CLINICAL HISTORY: Reason for exam: PE. TECHNIQUE: Axial computed tomographic angiography images of the chest with intravenous contrast. Automated exposure control was utilized for the study. A dose lowering technique was utilized adhering to the principles of ALARA. MIP reconstructed images were created and reviewed. COMPARISON: CTA chest: 02/18/2017 FINDINGS: Pulmonary arteries: No pulmonary embolism. There is up to 36 mm dilated main pulmonary artery. Aorta: An ectatic ascending aorta: 40 mm in diameter. Calcified atherosclerotic plaques Lungs: Central airways are patent. Bilateral bronchial wall mild cuffing, pulmonary interstitial/septal thickening and basilar multifocal linear atelectasis. Mild pulmonary emphysema. No mass. No consolidation. Pleural space: Unremarkable. No significant effusion. No pneumothorax. Heart: Severe cardiomegaly. No significant pericardial effusion. Densely calcified multivessel coronary arterial atherosclerosis. Bones/joints: Osteopenia. No acute fracture. No dislocation. Markedly increased thoracic kyphosis. Multilevel degenerative spondylitic changes. Soft tissues: Bilateral enlarged thyroid lobes with multiple hypodense and ring calcified nodules. Lymph nodes: Multiple borderline enlarged mediastinal, prevascular and hilar lymph nodes increased in size and number since prior comparison.. Other findings: Inferior vena caval reflux of IV contrast, sign of a right-sided heart disease (series 4 image 18). IMPRESSION: No pulmonary embolism. An enlarged main pulmonary artery. Severe cardiomegaly. Likely mild chronic pulmonary interstitial edema. Clinical correlation is advised. Densely calcified multivessel coronary arterial and aortic atherosclerosis. An ectatic ascending aorta: 40 mm in diameter. IVC reflux of contrast, sign of and right heart dysfunction. Recommend clinical correlation. Bilaterally markedly enlarged thyroid lobes with multiple hypodense and ring calcified nodules, increased in size/number since prior comparison. Sonographic correlation is recommended. . Electronically signed by: He Pollard MD, DABR 04/04/24 03:29 AM Code Status & VTE Plan Code Status Full code VTE Prophylaxis Plan VTE Prophylaxis will be ordered: Yes PG Care Time/CCT Total # of Minutes Spent Total Time Spent with Patient: Total time spent is greater than 50% in coordination of care (as documented) at patient's floor/unit and/or counseling patient: Coding Level of Care Code 17604 INT INP/OBS CARE 3/75MIN Diagnoses Chest pressure R07.89 Dizziness R42 DVT (deep venous thrombosis) I82.409 Affected thrombotic vein of extremity: unspecified vein of extremity Chronicity: unspecified DVT location: lower extremity Laterality: unspecified laterality History of pulmonary embolus (PE) Z86.711 Acute systolic (congestive) heart failure I50.21 CRPS (complex regional pain syndrome) type I G90.50 Atrial fibrillation I48.91 Coronary artery disease I25.10 History of heart artery stent Z95.5 Thyroid nodule E04.1 (3) DVT (deep venous thrombosis) Affected thrombotic vein of extremity: unspecified vein of extremity Chronicity: unspecified DVT location: lower extremity Laterality: unspecified laterality Qualified Code(s): I82.409 - Acute embolism and thrombosis of unspecified deep veins of unspecified lower extremity
[2024-04-04] MEDS ORDERED: NITROGLYCERIN SL 0.4 MG/TAB TAB SL PRN (02:29)
[2024-04-04] MEDS ORDERED: ONDANSETRON INJ 2 MG/ML 2 ML VIAL IV PRN (02:29)
[2024-04-04] MEDS: HEPARIN SODIUM/DEXTROSE 25,000 UNITS/500 ML BAG IV SCH (03:18)
[2024-04-04] MEDS: Heparin IV Adult Wt-Based Low-Dose *NO* INITIAL Bolus Protocol IV STA (03:19)
--- NOTE | 2024-04-04 03:30 | CT Scan Report ---
Exam(s): CTA CHEST IV Amt: 119 cc's optiray 320 EXAM: CT Angiography Chest With Intravenous Contrast CLINICAL HISTORY: Reason for exam: PE. TECHNIQUE: Axial computed tomographic angiography images of the chest with intravenous contrast. Automated exposure control was utilized for the study. A dose lowering technique was utilized adhering to the principles of ALARA. MIP reconstructed images were created and reviewed. COMPARISON: CTA chest: 02/18/2017 FINDINGS: Pulmonary arteries: No pulmonary embolism. There is up to 36 mm dilated main pulmonary artery. Aorta: An ectatic ascending aorta: 40 mm in diameter. Calcified atherosclerotic plaques Lungs: Central airways are patent. Bilateral bronchial wall mild cuffing, pulmonary interstitial/septal thickening and basilar multifocal linear atelectasis. Mild pulmonary emphysema. No mass. No consolidation. Pleural space: Unremarkable. No significant effusion. No pneumothorax. Heart: Severe cardiomegaly. No significant pericardial effusion. Densely calcified multivessel coronary arterial atherosclerosis. Bones/joints: Osteopenia. No acute fracture. No dislocation. Markedly increased thoracic kyphosis. Multilevel degenerative spondylitic changes. Soft tissues: Bilateral enlarged thyroid lobes with multiple hypodense and ring calcified nodules. Lymph nodes: Multiple borderline enlarged mediastinal, prevascular and hilar lymph nodes increased in size and number since prior comparison.. Other findings: Inferior vena caval reflux of IV contrast, sign of a right-sided heart disease (series 4 image 18). IMPRESSION: No pulmonary embolism. An enlarged main pulmonary artery. Severe cardiomegaly. Likely mild chronic pulmonary interstitial edema. Clinical correlation is advised. Densely calcified multivessel coronary arterial and aortic atherosclerosis. An ectatic ascending aorta: 40 mm in diameter. IVC reflux of contrast, sign of and right heart dysfunction. Recommend clinical correlation. Bilaterally markedly enlarged thyroid lobes with multiple hypodense and ring calcified nodules, increased in size/number since prior comparison. Sonographic correlation is recommended. . Electronically signed by: He Pollard MD, DABR 04/04/24 03:29 AM
[2024-04-04 05:21] LABS: Basophils # (auto) 0.03 K/uL (0.00-0.20); Basophils % (auto) 0.5 %; Eosinophils # (auto) 0.08 K/uL (0.00-0.50); Eosinophils % (auto) 1.3 %; Hemoglobin 12.2 g/dl (12.0-16.0); Immature Granulocytes # (auto) 0.02 K/uL (0.01-0.20); Immature Granulocytes % (auto) 0.3 %; Lymphocytes # (auto) 1.52 K/uL (1.20-3.40); Lymphocytes % (auto) 24.2 %; Mean Corpuscular Hemoglobin 29.9 pg (25.0-34.0); Mean Corpuscular Hgb Conc 31.3 g/dL (32.0-36.0); Mean Corpuscular Volume 95.6 fL (80.0-100.0); Mean Platelet Volume 10.5 fL (9.4-12.4); Monocytes # (auto) 0.69 K/uL (0.11-0.59); Neutrophils # (auto) 3.95 K/uL (1.40-6.50); Neutrophils % (auto) 62.7 %; Platelet Count 142 K/uL (130-400); RDW Coefficient of Variation 13.8 % (11.5-14.5); RDW Standard Deviation 48.1 fL (36.4-46.3); Red Blood Count 4.08 M/uL (4.20-5.40); White Blood Count 6.29 K/ul (4.8-10.8)
[2024-04-04] MEDS: FUROSEMIDE 40 MG/4 ML VIAL IV ONE (05:34)
[2024-04-04 05:38] LABS: Albumin Level 3.4 gm/dl (3.4-5.0); BUN Creatinine Ratio 28.9 (10-20); Calcium 8.8 mg/dl (8.6-10.3); Creatinine Clr Calc Pharmacy 66.3 ml/min; Est GFR (African American) 88.3 ml/min; Est GFR (Non-African American) 76.2 ml/min; Phosphorus 4.4 mg/dl (2.5-4.9); Potassium 4.3 mmol/L (3.5-5.1)
[2024-04-04 06:01] LABS: INR 1.1 (0.9-1.1); Partial Thromboplastin Time 28 Seconds (21-31); Prothrombin Time 11.7 Seconds (9.0-12.0)
--- NOTE | 2024-04-04 08:07 | XRay Report ---
XR chest 1V portable CLINICAL HISTORY: Chest pain, nonspecific COMPARISON STUDY: Chest radiograph March 08, 2023 FINDINGS: Marked cardiomegaly is unchanged. There is no radiographic evidence for pulmonary edema. Th ere is no pneumothorax or pleural effusion. There is no consolidation to suggest pneumonia. IMPRESSION: No acute cardiopulmonary findings. Stable cardiomegaly. ACT 112: Negative or not required by law. Electronically signed by: Joby Quintanilla M.D. 04/04/2024 8:06 AM
[2024-04-04 10:16] LABS: ANTI-Xa, UFH(UnfractionatedHep 0.21 IU/ml (0.3-0.7)
[2024-04-04] MEDS: CLOPIDOGREL BISULFATE 75 MG TAB PO SCH (11:26)
[2024-04-04] MEDS: lisinopril 2.5 MG TAB PO SCH (11:26)
[2024-04-04] MEDS: METOPROLOL TARTRATE 100 MG TAB PO SCH (11:26)
[2024-04-04] MEDS: EZETIMIBE 10 MG TAB PO SCH (11:26)
[2024-04-04] MEDS: ASPIRIN 81 MG ECTAB PO SCH (11:26)
[2024-04-04] MEDS: FAMOTIDINE 10 MG TABLET PO SCH (11:26)
[2024-04-04] MEDS: PANTOprazole 40 MG TAB PO SCH (11:27)
--- NOTE | 2024-04-04 12:24 | Electrocardiogram Report ---
Test Reason : Blood Pressure : */* mmHG Vent. Rate : 84 BPM Atrial Rate : * BPM P-R Int : * ms QRS Dur : 96 ms QT Int : 366 ms P-R-T Axes : * -7 33 degrees QTcB Int : 432 ms Atrial fibrillation Low voltage QRS Cannot rule out Anterior infarct (cited on or before 31-Dec-2023) Abnormal ECG When compared with ECG of 31-Dec-2023 11:52, (unconfirmed) No significant change was found Confirmed by Johnny Reese ([id number]) on 04/04/2024 12:23:49 PM Referred By: REFERRED SELF Confirmed By: Johnny Reese
[2024-04-04 14:16] LABS: Appearance Urine Clear (Clear); Bacteria Urine Automated None Seen (None Seen); Bilirubin Urine Negative (Negative); Blood Urine 3+ (Negative); Cast Urine Automated 0-2 /lpf (0-2); Color Urine Orange; Epithelial Cell Urine Auto 0-2 /hpf (0-2); Glucose Urine UA Negative (Negative); Ketones Urine Negative (Negative); Leukocyte Esterase Urine Trace (Negative); Nitrite Urine Negative (Negative); Protein Urine Trace (Negative); RBC Urine Automated >20 /hpf (0-2); Specific Gravity Urine 1.013 (1.000-1.030); Urobilinogen Urine Negative (Negative); WBC Urine Automated 0-5 /hpf (0-5); pH Urine 6.5 (4.5-7.5)
[2024-04-04 17:16] LABS: ANTI-Xa, UFH(UnfractionatedHep < 0.10 IU/ml (0.3-0.7)
[2024-04-04] MEDS: ACETAMINOPHEN 325 MG TAB PO PRN (18:20)
--- NOTE | 2024-04-04 22:47 | Communication Note ---
Date of Service: April 04, 2024 If patient will not tolerate DOACs, may consider warfarin or IVC filter placement.
[2024-04-05 08:03] LABS: Basophils # (auto) 0.03 K/uL (0.00-0.20); Basophils % (auto) 0.4 %; Eosinophils % (auto) 1.5 %; Hematocrit (blood only) 43.9 % (37.0-47.0); Hemoglobin 13.9 g/dl (12.0-16.0); Immature Granulocytes # (auto) 0.02 K/uL (0.01-0.20); Immature Granulocytes % (auto) 0.3 %; Lymphocytes # (auto) 1.61 K/uL (1.20-3.40); Lymphocytes % (auto) 23.4 %; Mean Corpuscular Hemoglobin 30.1 pg (25.0-34.0); Mean Corpuscular Hgb Conc 31.7 g/dL (32.0-36.0); Mean Platelet Volume 10.3 fL (9.4-12.4); Monocytes # (auto) 0.62 K/uL (0.11-0.59); Neutrophils # (auto) 4.51 K/uL (1.40-6.50); Neutrophils % (auto) 65.4 %; Platelet Count 158 K/uL (130-400); RDW Coefficient of Variation 13.6 % (11.5-14.5); RDW Standard Deviation 47.5 fL (36.4-46.3); Red Blood Count 4.62 M/uL (4.20-5.40); White Blood Count 6.89 K/ul (4.8-10.8)
[2024-04-05 08:18] LABS: Albumin Level 3.6 gm/dl (3.4-5.0); BUN Creatinine Ratio 26.1 (10-20); Calcium 9.1 mg/dl (8.6-10.3); Creatinine Clr Calc Pharmacy 53.9 ml/min; Est GFR (African American) 70.1 ml/min; Est GFR (Non-African American) 60.5 ml/min; Phosphorus 3.5 mg/dl (2.5-4.9); Potassium 4.3 mmol/L (3.5-5.1)
[2024-04-05 08:28] LABS: INR 1.1 (0.9-1.1); Partial Thromboplastin Time 26 Seconds (21-31); Prothrombin Time 11.9 Seconds (9.0-12.0)
--- NOTE | 2024-04-05 11:25 | XCELERA ---
[id number]
--- NOTE | 2024-04-05 12:46 | Cardiology Consultation ---
Date of Consultation April 05, 2024 Assessment & Plan (1) RODRIGUES (dyspnea on exertion): 2. CADPost PCI to LAD, OM2 02/2023. Residual distal RCA disease 3. Persistent atrial fibrillationasymptomatic, rate controlled 4. 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 Moderate mitral regurgitation. 6. Bilateral chronic DVT 7. Hypertension 8. Dyslipidemiastatin intolerance 9. GERD/Dyspepsia 10. Hematuria Admitted with gradual progressive dyspnea exertion. Symptoms seem to have improved post diuresis. Appears close to recent baseline. Very low suspicion for ACS. Suspect some degree of heart failure. On echo and clinically today no significant residual congestion. No PE on CTA. Reviewed venous duplex -- LT DVT unchanged from 02/2023. Right DVT new but chronic in appearance Do not feel needs additional cardiac testing as inpatient. Plan to optimize HF therapy. Transition to Toprol-XL 200mg daily. Recommend trying SGLT2 (will provide samples). Continue current lisinopril. Consider outpatient ARNI/MRA as BP allows Discussed daily weights. Lasix 20 mg as needed for symptoms, weight gain >2 lbs Agreeable to retry anticoagulation. Previously on Xarelto. Question of worsened dyspepsia although seemed to persist after medicine was stopped. Recommend retrying at 20 mg daily. While on Xarelto can stop aspirin, clopidogrel. Continue PPI Patient asking to go home today. Okay with me from a cardiac standpoint. Will arrange follow-up in 1 to 2 weeks If persistent dyspnea we will consider repeat stress test History of Present Illness Attending Physician: Ayde Keane MD History of Present Illness Mrs. Chilel is a very pleasant 74-year-old woman seen today in hospital after admitted with dizziness and dyspnea. Well known to me with a history of coronary artery disease post PCI with SAMANTHA to LAD 10/2018 and repeat PCI 02/2023, permanent atrial fibrillation, history of VTE, hypertension, moderate mitral regurgitation, GERD/dyspepsia and COPD . Presented to [facility] ED after feeling unwell for days. Family noted progressive dyspnea on exertion where she would have to stop and sit down after walking across her home. No associated chest pain. Denies new orthopnea or lower extremity edema. No other new symptoms. In ED venous duplex noted bilateral DVT (right popliteal, left femoralboth appear chronic, left maybe more subacute). Chest CTA negative for PE, mild interstitial edema. ECG showed rate controlled AF with no new ST changes. HS TropI negative. Repeat echo yesterday showed slight decline in LV function, EF 40-45%. RV more dilated with mild to moderate RV dysfunction. Normal estimated RA/PA. Persistent rate controlled AF on telemetry. Started on heparin infusion. Reportedly some hematuria overnight and heparin discontinued. Mild hypoxia yesterday and received 1 dose of IV Lasix. Prior cardiovascular studies: Cardiac cath/PCI 02/2023: Patent mid LAD stent, 98% distal LAD, 70% proximal OM2, 70% earlydistal RCA, 25% ostial/distal LMCA. 2.25 x 15 mm Xience postdilated with 2.5 NC to distal LAD. 2.5 x 18 mm Xience to proximal OM2 Echo 02/2023: EF 45 to 50%, hypokinetic apex. Severe biatrial dilation, mild AI, moderate MR, moderate TR, estimated PA 45 Cardiac cath/PCI 10/14/18: Mid LAD 95%, 30-40% ostial circumflex, OM 20-30% proximal, dominant RCA 30% distal. PCI with 3.5 x 15 Xience Roselia postdilated with 3.75 NC Echo 10/2018: LVEF 55-60%, mild to moderate MR, apical akinesis Allergies Allergy/AdvReac Type Severity Reaction Status Date / Time rivaroxaban AdvReac Mild stomach Verified 04/03/24 23:32 upset Home Medications Medication Instructions Recorded Confirmed Type aspirin 81 mg tablet,delayed 81 mg PO DAILY #90 tabs 10/15/18 04/03/24 Rx release (Ecotrin Low Strength) nitroglycerin 0.4 mg sublingual 0.4 mg sublingual Q5M PRN chest 03/12/23 04/03/24 Rx tablet (Nitrostat) pain #1 btl pantoprazole 40 mg tablet,delayed 40 mg PO DAILY #30 tabs 03/12/23 04/03/24 Rx release famotidine 20 mg tablet 10 mg PO BID 09/01/23 04/03/24 History clopidogrel 75 mg tablet 75 mg PO QAM #90 tabs 03/04/24 04/03/24 Rx lisinopril 5 mg tablet 2.5 mg (1/2 x 5 mg) PO .COMPLEX 08/22/24 09/21/24 Rx #30 tabs metoprolol tartrate 50 mg tablet 100 mg PO BID 03/04/24 04/03/24 History ezetimibe 10 mg tablet (Zetia) 10 mg PO DAILY #90 tabs 03/22/24 04/03/24 Rx Patient History Medical History Ischemic cardiomyopathy Chronic deep vein thrombosis (DVT) of left lower extremity Acute coronary syndrome Dyslipidemia Coronary artery disease Atrial fibrillation Mitral regurgitation HTN (hypertension) GERD (gastroesophageal reflux disease) COPD (chronic obstructive pulmonary disease) Surgical History History of heart artery stent History of cardiac cath Stented coronary artery Family History Father Hypertension Social History Smoking Status: Never smoker Second Hand Exposure: No; Do You Dip or Chew Tobacco: No; Hx Alcohol Use: No Hx Substance Use: No Preferred Language: Bengali Communication Ability: Effective Acid Extractor Required: No Beliefs That Will Affect Care: None marital status: Current Living Situation: Family Current Living Situation Comment: Lives at home w/ grandson current occupational status: retired current occupation: retired Feels Safe at Home: Yes Assistive Devices: None Review of Systems Review of Systems: All systems reviewed & are unremarkable except as noted in HPI & below Physical Exam Physical Exam: General: Comfortable HEENT: Sclerae anicteric Lungs: Clear to auscultation bilaterally, no crackles or wheezes Cardiac: Irregular irregular. 2 out of 6 holosystolic murmur at the apex. No JVD Vascular: 2+ radial pulse Abdomen: Soft, nontender Extremities: Well perfused, trace edema, chronic venous stasis changes Neuro: Nonfocal Psych: Alert orient x3, normal affect and mood Results & Data Vital Signs (Past 12 Hours) Vital Signs Temp Pulse Pulse Resp BP Pulse Ox O2 Del Method 04/05/24 11:41 97.5 F L 82 16 134/83 93 Room Air 04/05/24 11:30 69 04/05/24 10:54 Room Air 04/05/24 07:32 97.3 F L 77 18 142/86 H 90 Room Air 04/05/24 03:01 97.3 F L 66 14 138/79 93 Room Air PG Care Time/CCT Total # of Minutes Spent Total Time Spent with Patient: Total time spent is greater than 50% in coordination of care (as documented) at patient's floor/unit and/or counseling patient: Coding Level of Care Code 43300 INT INP/OBS CARE 3/75MIN Diagnoses RODRIGUES (dyspnea on exertion) R06.09
--- NOTE | 2024-04-05 14:42 | Discharge Summary ---
Discharge Summary Date of Service April 05, 2024 Principal Dx & Hospital Course #1 = Principal Diagnosis (1) Heart failure with mid-range ejection fraction: p/w Chest pressure/dyspnea on exertion/acute HFmrEF exacerbation/atrial fibrillation/CAD/history of coronary stent- The patient will be admitted to telemetry for serial cardiac enzymes, serial EKG's, cardiac rhythm monitoring and a 2-D echocardiogram with Dopplers. Continue aspirin, clopidogrel, metoprolol tartrate and lisinopril Patient agrees to start anticoagulation with heparin IV, to combine treatment for DVT Give furosemide 40 mg IV x 1, due to development of mild hypoxia overnight and suggestion of chronic interstitial pulmonary edema on CTA Follows with Dr. Armando Mas, who should be consulted for Friday, 04/05 (2) DVT (deep venous thrombosis): Lower extremity DVTs/history of PE- Venous Doppler with new nonocclusive right popliteal DVT, and likely chronic left distal superficial femoral vein and popliteal vein thrombosis CTA PE protocol negative for new PE Start heparin drip as noted above Patient reports issues with both Xarelto and apixaban in the past She can discuss with cardiology Dr. Mas regarding what long-term anticoagulation she would like to use (3) Atrial fibrillation: (4) Coronary artery disease: (5) Thyroid nodule: (6) Hematuria: (7) CRPS (complex regional pain syndrome) type I: Plan Hyperlipidemia- Continue Zetia Has statin intolerance GERD- Continue pantoprazole and famotidine Dispo-dc to home Notes For Next Care Provider Medication Changes From Visit STOP ASA, Plavix START Xarelto 20mg daily Start Toprol XL 200mg daily, STOP mateoprolol tartrate 100mg po bid Plan to add SGLT2-i and possibly ARNI/ARB, MRA as outpt Admission HPI Per Admitting Provider The patient is a 74-year-old female with a past medical history including history of PE and DVT, complex regional pain syndrome type I, gout, HFmrEF with EF 45 to 50%, atrial fibrillation, CAD post PCI to LAD, OM 2 on 03-05, with residual distal RCA disease, GERD, moderate mitral regurgitation, and dyslipidemia with statin intolerance. The patient presents to the emergency department with a few days of worsening dyspnea on exertion, intermittent dizziness and chest pressure. She reports that she has had some chronic bilateral leg pains, which have worsened over the past few weeks. She has been resistant to anticoagulation as recommended by her biomedical technician Dr. Armando Mas, having had side effects from apixaban and Xarelto in the past. Discharge Exam Constitutional WD/WN, vitals as above Respiratory normal respiratory effort, lungs clear to auscultation Cardiovascular Rate/Rhythm: regular rate and regular rhythm Heart Sounds: no murmur Extremities: + edema (trace edema legs bilat) Gastrointestinal (Abdomen) normal bowel sounds, soft, nontender, no hepatosplenomegaly Psychiatric A+Ox3, euthymic affect Discharge Plan Discharge Items Patient Disposition: Home - Self-Care Reason For Visit: A-FIB, DVT, CHEST PRESSURE Discharge Diagnosis: Heart failure DVT Thyroid nodules Hematuria Condition on Discharge: Fair Activity: Resume your previous activity Non-emergency contact: Primary Care Provider and Adjunct Instructor Chemistry Call non-emergency contact if: you have any medication questions and your symptoms worsen Follow-up/Referrals: Armando Mas MD [Family Provider] - (Follow up within 2 weeks) Armando Dee MD [Primary Care Provider] - (Follow up within 1-2 weeks) Diet: Low Sodium (2gm) Fluids: 1500ml (6 cups) Addtl Attending Provider Instructions: You were admitted with shortness of breath from heart failure. You were given a diuretic through the IV and urinated off extra fluid with improvement. Your echocardiogram did show some decrease in the strength of your heart. Dr. Mas is making some changes to your medications to help improve the function of your heart and help you feel better. You were also found to have blood clots in your legs which will be treated with Xarelto. Now that you are taking Xarelto, you can STOP the aspirin and the Plavix. You did have some blood in your urine here. If this continues after discharge or if you have bleeding from anywhere else, please call your doctor or return to the hospital if the bleeding is heavy. You can take a dose of lasix as a water pill as needed for weight gain of 2 lbs or more from one day to the next. Dr. Mas will give you samples of a new medicine to try once you see him in the office. You were found to have some nodules on your thyroid. Please talk to your PCP a bout further evaluation for this as an outpatient. You were also noted to have some blood in your urine-you should also talk to your PCP about this. Call your Primary Care doctor if any of the following symptoms or problems start or get worse: * Shortness of breath or difficulty breathing * Wake up at night short of breath * Chest pain * Cough * Swelling of your hands, feet, or legs * More fatigued or tired with your normal activity * Palpitations - sudden fast heart beats WEIGHT * Weigh yourself every morning after using the bathroom. * Use the same scale. * Wear the same amount of clothing. * Write your weight down on a chart. * Call your Primary Care doctor if you gain more than 2-3 pounds in 1-2 days. MEDICATIONS * Use this discharge instruction sheet for medication instructions. * Take your medications at the time your doctor ordered. * Do not skip a dose of your medicines. * If you miss a dose of medicine, take it as soon as possible, but DO NOT DOUBLE A DOSE. * Read your medicine information when you get home. * Know all of the side effects of your medicine. If in doubt, ask your pharmacist * Call your Primary Care doctor's office if you have any side effects. * Be sure all of your doctors know what medicine and herbs you take (including cold, flu, and herbal medicine). Take the following with you to your follow-up doctor appointments: * Weight Chart * Medication List * List of questions Do not drink excessive alcohol, beer or wine. Pending Studies at Discharge: No Stand-Alone Forms: My [facility] [place], Smoking Cessation Medications and DC Order Prescriptions: New metoprolol succinate [Toprol XL] 200 mg tablet extended release 24 hr 200 mg PO DAILY Qty: 30 0RF Xarelto 20 mg tablet 20 mg PO PM Qty: 30 0RF Rx Instructions: must administer with evening meal furosemide [Lasix] 20 mg tablet 20 mg PO DAILY PRN (Reason: weight gain< 2lbs) Qty: 30 0RF Continued ezetimibe [Zetia] 10 mg tablet 10 mg PO DAILY Qty: 90 3RF famotidine 20 mg tablet 10 mg PO BID lisinopril 5 mg tablet 2.5 mg PO .COMPLEX Qty: 30 3RF Rx Instructions: 2.5 mg orally; nitroglycerin [Nitrostat] 0.4 mg Tablet, Sublingual 0.4 mg sublingual Q5M PRN (Reason: chest pain) Qty: 1 0RF Rx Instructions: max 3 doses in 15 minutes. pantoprazole 40 mg Tablet,Delayed Release (Dr/Ec) 40 mg PO DAILY Qty: 30 2RF Rx Instructions: for heartburn/reflux disease. Discontinued clopidogrel 75 mg tablet 75 mg PO QAM Qty: 90 2RF Rx Instructions: to keep your heart stents open metoprolol tartrate 50 mg tablet 100 mg PO BID Rx Instructions: for your heart aspirin [Ecotrin Low Strength] 81 mg Tablet,Delayed Release (Dr/Ec) 81 mg PO DAILY Qty: 90 3RF Discharge Orders: Discharge Order- CHF (Routine); Ordered 04/05/24 Ordered By: Ayde Keane Admission Data Admit Date/Time: 04/04/24 01:41 Attending Provider: Ayde Keane Admit Provider: Richard Estevez Primary Care Provider: Armando Dee Other Providers: Richard Estevez; Armando Mas Hospital Stay Data Consultations 04/04/24 00:23 ED Decision to Admit Stat 04/04/24 22:47 Consult Cardiology Routine Diagnostic Imagining Performed 04/03/24 21:16 US venous doppler LE BI Stat 04/04/24 00:29 CT angio chest PE protocol Stat ECHO Pending Results Patient Have Any Pending Studies at Discharge: No Discharge Instructions Given to Patient (Per Discharging Provider) You were admitted with shortness of breath from heart failure. You were given a diuretic through the IV and urinated off extra fluid with improvement. Your echocardiogram did show some decrease in the strength of your heart. Dr. Mas is making some changes to your medications to help improve the function of your heart and help you feel better. You were also found to have blood clots in your legs which will be treated with Xarelto. Now that you are taking Xarelto, you can STOP the aspirin and the Plavix. You did have some blood in your urine here. If this continues after discharge or if you have bleeding from anywhere else, please call your doctor or return to the hospital if the bleeding is heavy. You can take a dose of lasix as a water pill as needed for weight gain of 2 lbs or more from one day to the next. Dr. Mas will give you samples of a new medicine to try once you see him in the office. You were found to have some nodules on your thyroid. Please talk to your PCP about further evaluation for this as an outpatient. You were also noted to have some blood in your urine-you should also talk to your PCP about this. Call your Primary Care doctor if any of the following symptoms or problems start or get worse: * Shortness of breath or difficulty breathing * Wake up at night short of breath * Chest pain * Cough * Swelling of your hands, feet, or legs * More fatigued or tired with your normal activity * Palpitations - sudden fast heart beats WEIGHT * Weigh yourself every morning after using the bathroom. * Use the same scale. * Wear the same amount of clothing. * Write your weight down on a chart. * Call your Primary Care doctor if you gain more than 2-3 pounds in 1-2 days. MEDICATIONS * Use this discharge instruction sheet for medication instructions. * Take your medications at the time your doctor ordered. * Do not skip a dose of your medicines. * If you miss a dose of medicine, take it as soon as possible, but DO NOT DOUBLE A DOSE. * Read your medicine information when you get home. * Know all of the side effects of your medicine. If in doubt, ask your pharmacist * Call your Primary Care doctor's office if you have any side effects. * Be sure all of your doctors know what medicine and herbs you take (including cold, flu, and herbal medicine). Take the following with you to your follow-up doctor appointments: * Weight Chart * Medication List * List of questions Do not drink excessive alcohol, beer or wine. Total Time Total Time Spent Total Time Spent (In Minutes): 35 min Total Time Includes: Examination of the Patient, Discharge Planning, Medication Reconciliation and Communication With Other Providers (Cardiology) Coding Diagnoses Heart failure with mid-range ejection fraction I50.22 DVT (deep venous thrombosis) I82.409 Affected thrombotic vein of extremity: unspecified vein of extremity Chronicity: unspecified DVT location: lower extremity Laterality: unspecified laterality Atrial fibrillation I48.91 Coronary artery disease I25.10 Thyroid nodule E04.1 Hematuria R31.9 CRPS (complex regional pain syndrome) type I G90.50
[2024-04-05 15:34] VITALS: BP 134/83; RESP 16; TEMP 97.5; O2SAT 93
[2024-04-05 15:39] VITALS: PULSE 79
--- NOTE | 2024-04-06 20:49 | Electrocardiogram Report ---
Test Reason : Blood Pressure : */* mmHG Vent. Rate : 81 BPM Atrial Rate : 77 BPM P-R Int : * ms QRS Dur : 84 ms QT Int : 408 ms P-R-T Axes : * 3 38 degrees QTcB Int : 473 ms Atrial fibrillation Septal infarct (cited on or before 31-Dec-2023) Abnormal ECG When compared with ECG of 03-Apr-2024 21:08, Questionable change in initial forces of Anterior leads Confirmed by Dwight Hein ([id number]) on 04/06/2024 8:49:23 PM Referred By: REFERRED SELF Confirmed By: Dwight Hein
== END 2024-04-05 17:18 | disposition home or self-care (01) | DRG 291 ==
LOC: ED 20:57 → EDINP 04-04 01:41 → SUATTDRO 04-04 01:41 → 2S 04-04 02:30

== ENCOUNTER 2024-08-22 21:27 | Inpatient (IN) ==
--- NOTE | 2024-08-22 21:35 | Emergency Department Note ---
Impression & Plan Acute dyspnea, Elevated brain natriuretic peptide (BNP) level, CHF (congestive heart failure), Atrial fibrillation with rapid ventricular response, Pleural effusion on left, Elevated bilirubin ED Provider Note HISTORY OF PRESENT ILLNESS: Patient is a 74-year-old female presenting with shortness of breath and chest pain. Patient reports she has been having recurrent episodes of "getting a cold" for the last few months. She states that in the last 24 hours she has been having significant shortness of breath and chest pressure. States that she has been feeling very weak and rundown. She has a history of cardiac stents and is on Plavix. Denies any fevers. Denies any coughs. She does have a history of a DVT and PE. She denies any recent sick contact exposures. Reports feeling very unwell. Notes that she is very short of breath both at rest and with exertion, but is very winded when walking only a few steps. She reports her lower extremities are always swollen. ROS: as above PHYSICAL EXAM: Constitutional: Patient appears in no acute distress. HENT: Head: Normocephalic and atraumatic. Eyes: EOMI, PERRL Mouth/Throat: Mucous membranes moist. Neck: Trachea midline. Neck supple. Cardiovascular: Tachycardic with irregularly irregular rhythm. No murmurs, rubs or gallops. Intact distal pulses. Pulmonary/Chest: No respiratory distress. Breath sounds clear and equal bilaterally. No wheezes or rales. Decreased breath sounds like left lung base. Abdominal: Abdomen soft, no tenderness, rebound or guarding. Musculoskeletal: No tenderness or deformity noted. +2 pitting edema of bilateral lower extremities extending to the proximal tibias. Skin: Warm and dry. No rash, erythema, pallor or cyanosis Psychiatric: Appropriate mood and affect for situation. Neurological: Alert and keenly responsive. CN II-XII grossly intact, moving all extremities equally and fully. MDM: - Vitals signs showed hypertension and tachycardia. - History obtained via patient. History as above. - Chronic conditions affecting care: ischemic cardiomyopathy; COPD; HTN; HLD; GERD; DVT/PE; CAD (s/p PCI); CHF - Differential diagnoses include, but are not limited to: Congestive heart failure; acute coronary syndrome; COPD/asthma exacerbation; pulmonary edema; pulmonary embolism; pneumonia; pneumothorax; viral syndrome - Order placed for continuous cardiac monitoring. At this time, monitor showed rate of 110 bpm with irregular rhythm, per my interpretation. - External medical records reviewed. Discharge summary dated 04/05/2024 was reviewed. Patient was admitted that time for heart failure with midrange ejection fraction. She had an EF on echocardiogram of 40 to 45%. - EKG interpreted by myself showed atrial fibrillation. Rate tachycardic at 111 bpm. QT 326. No acute ischemic changes. Noted to have some PVCs. - Laboratory workup interpreted by myself showed normal WBC; slightly elevated INR (1.3); normal electrolytes; normal troponin; elevated BNP (893); elevated total bilirubin (2.1) with normal AST/ALT - CXR showed cardiomegaly and left-sided pleural effusion, per my interpretation. Radiology notes left lower lobe atelectasis and left pleural effusion. - VBG grossly unremarkable - Viral respiratory panel negative - Considered CT imaging of abdomen, given patient's elevated total bilirubin level. However, she has no reproducible abdominal pain on assessment and has a normal AST/ALT. I do think that this will require further workup, but not in the emergent setting. - Discussion was had with clinical case manager about patient's case and need for admission - Hospitalist consulted for admission - Patient admitted to [facility] for further evaluation and management. ASSESSMENT AND PLAN: Diagnosis: acute dyspnea; left sided pleural effusion; CHF exacerbation; Afib with RVR; elevated BNP; elevated bilirubin Plan: admit Past Med/Surg History Problem List (Updated 08/22/24 @ 22:51 by Heather Will MD) Elevated bilirubin (Acute) Pleural effusion on left (Acute) Atrial fibrillation with rapid ventricular response (Acute) CHF (congestive heart failure) (Acute) Elevated brain natriuretic peptide (BNP) level (Acute) Acute dyspnea (Acute) Heart failure with mid-range ejection fraction Hematuria Thyroid nodule History of heart artery stent Atrial fibrillation Coronary artery disease DVT (deep venous thrombosis) (Acute) History of pulmonary embolus (PE) Abnormal echocardiogram Elevated brain natriuretic peptide (BNP) level Exertional chest pain (Acute) S/P ORIF (open reduction internal fixation) fracture Left wrist Fx. left wrist CHF (congestive heart failure) (Chronic) Gouty arthritis of toe of right foot (Acute) Medical History Ischemic cardiomyopathy Chronic deep vein thrombosis (DVT) of left lower extremity Acute coronary syndrome Dyslipidemia Coronary artery disease Atrial fibrillation Mitral regurgitation HTN (hypertension) GERD (gastroesophageal reflux disease) COPD (chronic obstructive pulmonary disease) Surgical History History of heart artery stent History of cardiac cath Stented coronary artery Family History Father Hypertension Social History Smoking Status: Never smoker Second Hand Exposure: No; Do You Dip or Chew Tobacco: No; Hx Alcohol Use: No Hx Substance Use: No Preferred Language: Greek Communication Ability: Effective Roustabout Supervisor Required: No Beliefs That Will Affect Care: None marital status: Current Living Situation: Family Current Living Situation Comment: Lives at home w/ grandson current occupational status: retired current occupation: retired Feels Safe at Home: Yes Assistive Devices: None Allergies Allergies Allergy/AdvReac Type Severity Reaction Status Date / Time rivaroxaban AdvReac Mild stomach Verified 07/09/24 10:44 upset Home Meds Home Medications Medication Instructions Recorded Confirmed famotidine 20 mg tablet 10 mg PO BID 09/01/23 07/09/24 Previous Rx's Medication Instructions Recorded nitroglycerin 0.4 mg sublingual 0.4 mg sublingual Q5M PRN chest 03/12/23 tablet (Nitrostat) pain #1 btl ezetimibe 10 mg tablet (Zetia) 10 mg PO DAILY #90 tabs 03/22/24 furosemide 20 mg tablet (Lasix) 20 mg PO DAILY PRN weight gain< 04/05/24 2lbs #30 tabs lisinopril 2.5 mg tablet 2.5 mg PO DAILY #90 tabs 05/17/24 metoprolol succinate 100 mg 100 mg PO DAILY #90 tabs 05/31/24 tablet,extended release 24 hr dapagliflozin propanediol 10 mg 10 mg PO DAILY #90 tabs 07/09/24 tablet (Farxiga) Results & Data (ED) Vital Signs Vital Signs - 24 hr 08/22/24 21:27 08/22/24 21:28 08/22/24 21:32 Temperature 36.4 C L Temperature Source Oral Pulse Rate 108 H Pulse Rate from SpO2 Sensor Respiratory Rate 18 Respiratory Effort / Characteristics Non-Labored Non-Labored Respiratory Depth Normal Normal Respiratory Pattern Regular Blood Pressure 156/96 H Blood Pressure Mean 116 Pulse Oximetry 95 Oxygen Delivery Method Room Air Room Air Sepsis Recent Fever Within 48 Hours No Sepsis New/Unexplained Change in Mental Status N/A Sepsis Action Taken by Nursing No Action Required 08/22/24 21:33 08/22/24 21:51 08/22/24 21:58 Temperature Temperature Source Pulse Rate 116 H 113 H Pulse Rate from SpO2 Sensor 105 H Respiratory Rate 21 Respiratory Effort / Characteristics Respiratory Depth Respiratory Pattern Blood Pressure Blood Pressure Mean Pulse Oximetry 95 Oxygen Delivery Method Room Air Sepsis Recent Fever Within 48 Hours Sepsis New/Unexplained Change in Mental Status Sepsis Action Taken by Nursing 08/22/24 22:06 Temperature Temperature Source Pulse Rate 100 H Pulse Rate from SpO2 Sensor 111 H Respiratory Rate 23 Respiratory Effort / Characteristics Respiratory Depth Respiratory Pattern Blood Pressure Blood Pressure Mean Pulse Oximetry 92 Oxygen Delivery Method Sepsis Recent Fever Within 48 Hours Sepsis New/Unexplained Change in Mental Status Sepsis Action Taken by Nursing Laboratory Data 08/22/24 21:40 08/22/24 21:40 Lab Results 08/22/24 08/22/24 Range/Units 21:40 21:53 WBC 6.66 (4.8-10.8) K/ul RBC 4.44 (4.20-5.40) M/uL Hgb 13.7 (12.0-16.0) g/dl Hct 43.5 (37.0-47.0) % MCV 98.0 (80.0-100.0) fL MCH 30.9 (25.0-34.0) pg MCHC 31.5 L (32.0-36.0) g/dL RDW Std Deviation 54.2 H (36.4-46.3) fL RDW Coeff of [place]gil 15.0 H (11.5-14.5) % Plt Count 132 (130-400) K/uL MPV 10.6 (9.4-12.4) fL Immature Gran % (Auto) 0.3 % Neut % (Auto) 71.2 % Lymph % (Auto) 19.7 % [place] % (Auto) 7.8 % Eos % (Auto) 0.5 % Baso % (Auto) 0.5 % Neut # (Auto) 4.75 (1.40-6.50) K/uL Lymph # (Auto) 1.31 (1.20-3.40) K/uL [place] # (Auto) 0.52 (0.11-0.59) K/uL Eos # (Auto) 0.03 (0.00-0.50) K/uL Baso # (Auto) 0.03 (0.00-0.20) K/uL Immature Gran # (Auto) 0.02 (0.01-0.20) K/uL PT 13.6 H (9.0-12.0) Seconds INR 1.3 H (0.9-1.1) VBG pH 7.37 (7.36-7.41) VBG pCO2 54 H (38-50) mmHg VBG pO2 30 mmHg VBG HCO3 31 mmol/L VBG O2 Saturation < 60.0 % VBG Base Excess 4.5 mEq/L Sodium 142 (136-145) mmol/L Potassium 4.0 (3.5-5.1) mmol/L Chloride 105 (98-107) mmol/L Carbon Dioxide 31 (21-32) mmol/L Anion Gap 6 (3-11) BUN 20 (6-23) mg/dl Creatinine 0.94 (0.6-1.2) mg/dl Est Cr Clr Drug Dosing Not Reportable eGFR 62.89 BUN/Creatinine Ratio 21.3 H (10-20) Glucose 110 H (70-99(Fasting)) mg/dl Calcium 9.7 (8.6-10.3) mg/dl Magnesium 1.7 (1.7-2.4) mg/dl Total Bilirubin 2.1 H (0.2-1.0) mg/dl AST 16 (13-39) U/L ALT 12 (7-52) U/L Alkaline Phosphatase 98 (34-104) U/L Troponin I High Sens 14.0 (0-14) pg/ml B-Natriuretic Peptide 893 H (0-100) pg/ml Total Protein 7.5 (6.0-8.3) gm/dl Albumin 3.9 (3.4-5.0) gm/dl Globulin 3.6 (2.5-4.0) gm/dl Albumin/Globulin Ratio 1.1 (0.9-2) Adenovirus (PCR) Not Detected (NotDetected) B. pertussis DNA (PCR) Not Detected (NotDetected) B.parapertussis DNA PCR Not Detected (NotDetected) C. pneumoniae DNA (PCR) Not Detected (NotDetected) Coronavirus OC43 (PCR) Not Detected (NotDetected) Coronavirus HKU1 (PCR) Not Detected (NotDetected) Coronavirus 229E (PCR) Not Detected (NotDetected) SARS-CoV-2 (PCR) Not Detected (NotDetected) Coronavirus NL63 (PCR) Not Detected (NotDetected) Human Metapneumovir PCR Not Detected (NotDetected) Influenza Type A (PCR) Not Detected (NotDetected) Influenza Type B (PCR) Not Detected (NotDetected) M. pneumoniae (PCR) Not Detected (NotDetected) Parainfluenza 1 (PCR) Not Detected (NotDetected) Parainfluenza 2 (PCR) Not Detected (NotDetected) Parainfluenza 3 (PCR) Not Detected (NotDetected) Parainfluenza 4 (PCR) Not Detected (NotDetected) RSV (PCR) Not Detected (NotDetected) Entero/Rhino (PCR) Not Detected (NotDetected) Imaging Data Radiologist's Impression: Chest X-Ray 08/22/24 21:33 Exam(s): XR CXR 1 VIEW EXAM: XR Chest, 1 View CLINICAL HISTORY: Reason for exam: Dyspnea. TECHNIQUE: Frontal view of the chest. COMPARISON: No relevant prior studies available. FINDINGS: Lungs: See below. Pleural space: See below. Heart: Cardiomegaly with left pleural effusion and left lower lobe atelectasis. Mediastinum: Unremarkable. Normal mediastinal contour. Bones/joints: Unremarkable. No acute fracture. IMPRESSION: Left lower lobe atelectasis and left pleural effusion. Electronically signed by: Radhames Sanchez MD 08/22/24 22:04 PM Discharge Plan Visit Data Chief Complaint: Shortness of Breath/Dyspnea Stated Complaint: SOB,CHEST PAIN ED Provider: Heather Will Discharge Problem: Acute dyspnea, Elevated brain natriuretic peptide (BNP) level, CHF (congestive heart failure), Atrial fibrillation with rapid ventricular response, Pleural effusion on left, Elevated bilirubin Forms Stand Alone Forms: [facility] Prescriptions Prescriptions: No Action ezetimibe [Zetia] 10 mg tablet 10 mg PO DAILY Qty: 90 3RF lisinopril 2.5 mg tablet 2.5 mg PO DAILY Qty: 90 3RF metoprolol succinate 100 mg tablet extended release 24 hr 100 mg PO DAILY Qty: 90 3RF famotidine 20 mg tablet 10 mg PO BID dapagliflozin propanediol [Farxiga] 10 mg tablet 10 mg PO DAILY Qty: 90 3RF nitroglycerin [Nitrostat] 0.4 mg Tablet, Sublingual 0.4 mg sublingual Q5M PRN (Reason: chest pain) Qty: 1 0RF Rx Instructions: max 3 doses in 15 minutes. furosemide [Lasix] 20 mg tablet 20 mg PO DAILY PRN (Reason: weight gain< 2lbs) Qty: 30 0RF Referrals Referrals: Armando Dee MD [Primary Care Provider] -
[2024-08-22 22:00] LABS: Base Excess VBG 4.5 mEq/L; HCO3 VBG 31 mmol/L; Oxygen Saturation VBG < 60.0 %; PCO2 VBG 54 mmHg (38-50); PO2 VBG 30 mmHg; pH VBG 7.37 (7.36-7.41)
[2024-08-22 22:03] LABS: Basophils # (auto) 0.03 K/uL (0.00-0.20); Basophils % (auto) 0.5 %; Eosinophils # (auto) 0.03 K/uL (0.00-0.50); Eosinophils % (auto) 0.5 %; Hematocrit (blood only) 43.5 % (37.0-47.0); Hemoglobin 13.7 g/dl (12.0-16.0); Immature Granulocytes # (auto) 0.02 K/uL (0.01-0.20); Immature Granulocytes % (auto) 0.3 %; Lymphocytes # (auto) 1.31 K/uL (1.20-3.40); Lymphocytes % (auto) 19.7 %; Mean Corpuscular Hemoglobin 30.9 pg (25.0-34.0); Mean Corpuscular Hgb Conc 31.5 g/dL (32.0-36.0); Mean Platelet Volume 10.6 fL (9.4-12.4); Monocytes # (auto) 0.52 K/uL (0.11-0.59); Monocytes % (auto) 7.8 %; Neutrophils # (auto) 4.75 K/uL (1.40-6.50); Neutrophils % (auto) 71.2 %; Platelet Count 132 K/uL (130-400); RDW Standard Deviation 54.2 fL (36.4-46.3); Red Blood Count 4.44 M/uL (4.20-5.40); White Blood Count 6.66 K/ul (4.8-10.8)
--- NOTE | 2024-08-22 22:05 | XRay Report ---
Exam(s): XR CXR 1 VIEW EXAM: XR Chest, 1 View CLINICAL HISTORY: Reason for exam: Dyspnea. TECHNIQUE: Frontal view of the chest. COMPARISON: No relevant prior studies available. FINDINGS: Lungs: See below. Pleural space: See below. Heart: Cardiomegaly with left pleural effusion and left lower lobe atelectasis. Mediastinum: Unremarkable. Normal mediastinal contour. Bones/joints: Unremarkable. No acute fracture. IMPRESSION: Left lower lobe atelectasis and left pleural effusion. Electronically signed by: Radhames Sanchez MD 08/22/24 22:04 PM
[2024-08-22 22:20] LABS: Alanine Aminotransferase 12 U/L (7-52); Albumin Globulin Ratio 1.1 (0.9-2); Albumin Level 3.9 gm/dl (3.4-5.0); Alkaline Phosphatase 98 U/L (34-104); Anion Gap 6 (3-11); Aspartate Aminotransferase 16 U/L (13-39); BUN Creatinine Ratio 21.3 (10-20); Bilirubin,Total 2.1 mg/dl (0.2-1.0); Blood Urea Nitrogen 20 mg/dl (6-23); Calcium 9.7 mg/dl (8.6-10.3); Carbon Dioxide 31 mmol/L (21-32); Chloride 105 mmol/L (98-107); Globulin 3.6 gm/dl (2.5-4.0); Glucose 110 mg/dl (70-99(Fasting)); Magnesium 1.7 mg/dl (1.7-2.4); Sodium 142 mmol/L (136-145); Total Protein 7.5 gm/dl (6.0-8.3)
[2024-08-22 22:27] LABS: INR 1.3 (0.9-1.1); Prothrombin Time 13.6 Seconds (9.0-12.0)
[2024-08-22 22:46] LABS: Adenovirus PCR Not Detected (NotDetected); Bordetella parapertussis PCR Not Detected (NotDetected); Bordetella pertussis PCR Not Detected (NotDetected); Chlamydia pneumoniae PCR Not Detected (NotDetected); Coronavirus 229E PCR Not Detected (NotDetected); Coronavirus CoV-2 (COVID19)PCR Not Detected (NotDetected); Coronavirus HKU1 PCR Not Detected (NotDetected); Coronavirus NL63 PCR Not Detected (NotDetected); Coronavirus OC43PCR Not Detected (NotDetected); Human Metapneumovirus PCR Not Detected (NotDetected); Influenza A PCR Not Detected (NotDetected); Influenza B PCR Not Detected (NotDetected); Mycoplasma pneumoniae PCR Not Detected (NotDetected); Parainfluenza Virus 1 PCR Not Detected (NotDetected); Parainfluenza Virus 2 PCR Not Detected (NotDetected); Parainfluenza Virus 3 PCR Not Detected (NotDetected); Parainfluenza Virus 4 PCR Not Detected (NotDetected); Respiratory Syncytial VirusPCR Not Detected (NotDetected); Rhinovirus/Enterovirus PCR Not Detected (NotDetected)
[2024-08-22] MEDS: FUROSEMIDE 40 MG/4 ML VIAL IV ONE (23:02)
[2024-08-22] MEDS: MAGNESIUM SULFATE / D5W 1 GM/100 ML BAG IV SCH (23:35)
--- NOTE | 2024-08-22 23:47 | History & Physical Report ---
Date of Service August 22, 2024 Assessment & Plan (1) Atrial fibrillation with rapid ventricular response: (2) Hypomagnesemia: (3) Heart failure with mid-range ejection fraction: (4) History of heart artery stent: Plan The patient is a 74-year-old female with a past medical history including atrial fibrillation, HFmrEF, hematuria, coronary stents, CAD, DVT, PE, CRPS/complex regional pain syndrome type I, and history of gouty arthritis of great toe of right foot.The patient was encouraged to come to the emergency department by family members due to concerns regarding progressive generalized fatigue, shortness of breath, dyspnea on exertion and chest pain. She has been over the past 1 to 2 weeks having recurrent episodes of feeling like she is getting a cold. Over the past 24 hours the symptoms have intensified, along with progressive weakness and feelings of being rundown. She has a history of coronary artery stents, is on Plavix and aspirin, has a history of DVT and PE having refused anticoagulation with Xarelto due to concerns regarding hematuria in the past. She has had persistent and progressive lower extremity swelling, and for all these reasons presents to the ED for assessment. #HFmrEF exacerbation/atrial fibrillation with RVR/history of stented coronary arteries/chronic small left pleural effusion- The patient will be admitted to telemetry for serial cardiac enzymes, serial EKG's, cardiac rhythm monitoring Most recent echocardiogram on with ejection fraction 40-45%, mild aortic regurgitation and moderate mitral regurgitation Received furosemide 40 mg IV from the ED Hold oral furosemide 20 mg daily and Farxiga Continue furosemide 40 mg IV every morning Place pure wick Serial CBC with differential, chemistry profile and magnesium level Continue metoprolol succinate ER 100 mg every morning and lisinopril 2.5 mg daily Give metoprolol succinate ER 50 mg x 1 now Optimize magnesium with 2 g IV now for magnesium 1.7 prior to diuresis Initial troponin 14.0, with follow-up pending BNP 893 Patient prefers to continue aspirin 81 mg daily, and clopidogrel 75 mg daily, as in the past discussions with her airport location manager Dr. Mas. She has had hematuria in the past and is concerned about using Xarelto She has been given options of starting Xarelto, and holding aspirin and clopidogrel, however, as noted, she would prefer to not be on Xarelto Consult her airport location manager Dr. Mas Hypomagnesemia- Magnesium 1.7 on admission Give 2 g magnesium sulfate IV, in anticipation of further loss with diuresis Repeat laboratories every morning along with BMP #DVT/PE history- As noted, patient prefers to not be on Xarelto #Chronic medical problems: GERD-Continue famotidine Hyperlipidemia-continue Zetia 10 mg daily History of Present Illness Chief Complaint: The patient was encouraged to come to the emergency department by family members due to concerns regarding progressive generalized fatigue, shortness of breath, dyspnea on exertion and chest pain. She has been over the past 1 to 2 weeks having recurrent episodes of feeling like she is getting a cold. Over the past 24 hours the symptoms have intensified, along with progressive weakness and feelings of being rundown. She has a history of coronary artery stents, is on Plavix and aspirin, has a history of DVT and PE having refused anticoagulation with Xarelto due to concerns regarding hematuria in the past. She has had persistent and progressive lower extremity swelling, and for all these reasons presents to the ED for assessment. Primary Care Provider: Armando Dee MD The patient is a 74-year-old female with a past medical history including atrial fibrillation, HFmrEF, hematuria, coronary stents, CAD, DVT, PE, CRPS/complex regional pain syndrome type I, and history of gouty arthritis of great toe of right foot.The patient was encouraged to come to the emergency department by family members due to concerns regarding progressive generalized fatigue, shortness of breath, dyspnea on exertion and chest pain. She has been over the past 1 to 2 weeks having recurrent episodes of feeling like she is getting a cold. Over the past 24 hours the symptoms have intensified, along with progressive weakness and feelings of being rundown. She has a history of coronary artery stents, is on Plavix and aspirin, has a history of DVT and PE having refused anticoagulation with Xarelto due to concerns regarding hematuria in the past. She has had persistent and progressive lower extremity swelling, and for all these reasons presents to the ED for assessment. Allergies Allergy/AdvReac Type Severity Reaction Status Date / Time rivaroxaban AdvReac Mild stomach Verified 07/09/24 10:44 upset Home Medications Medication Instructions Recorded Confirmed Type nitroglycerin 0.4 mg sublingual 0.4 mg sublingual Q5M PRN chest 03/12/23 08/23/24 Rx tablet (Nitrostat) pain #1 btl famotidine 20 mg tablet 10 mg PO BID 09/01/23 08/23/24 History furosemide 20 mg tablet (Lasix) 20 mg PO DAILY PRN weight gain< 04/05/24 08/23/24 Rx 2lbs #30 tabs lisinopril 2.5 mg tablet 2.5 mg PO DAILY #90 tabs 05/17/24 08/23/24 Rx metoprolol succinate 100 mg 100 mg PO DAILY #90 tabs 05/31/24 08/23/24 Rx tablet,extended release 24 hr clopidogrel 75 mg tablet 75 mg PO DAILY 08/23/24 08/23/24 History ezetimibe 10 mg tablet 10 mg PO DAILY 08/23/24 08/23/24 History Past Med/Surg History Problem List (Updated 08/23/24 @ 01:37 by Richard Estevez MD) Hypomagnesemia Elevated bilirubin (Acute) Pleural effusion on left (Acute) Atrial fibrillation with rapid ventricular response (Acute) CHF (congestive heart failure) (Acute) Elevated brain natriuretic peptide (BNP) level (Acute) Acute dyspnea (Acute) Heart failure with mid-range ejection fraction Hematuria Thyroid nodule History of heart artery stent Atrial fibrillation Coronary artery disease DVT (deep venous thrombosis) (Acute) History of pulmonary embolus (PE) Abnormal echocardiogram Elevated brain natriuretic peptide (BNP) level Exertional chest pain (Acute) S/P ORIF (open reduction internal fixation) fracture Left wrist Fx. left wrist CHF (congestive heart failure) (Chronic) Gouty arthritis of toe of right foot (Acute) Medical History Ischemic cardiomyopathy Chronic deep vein thrombosis (DVT) of left lower extremity Acute coronary syndrome Dyslipidemia Coronary artery disease Atrial fibrillation Mitral regurgitation HTN (hypertension) GERD (gastroesophageal reflux disease) COPD (chronic obstructive pulmonary disease) Surgical History History of heart artery stent History of cardiac cath Stented coronary artery Family History Father Hypertension Social History Smoking Status: Never smoker Second Hand Exposure: No; Do You Dip or Chew Tobacco: No; Hx Alcohol Use: No Hx Substance Use: No Preferred Language: Wallisian Communication Ability: Effective Seismology Teacher Required: No Beliefs That Will Affect Care: None marital status: Current Living Situation: Family Current Living Situation Comment: Lives at home w/ grandson current occupational status: retired current occupation: retired Feels Safe at Home: Yes Assistive Devices: None Review of Systems Review of Systems: The patient denies sore throat, fevers, chills, sweats, weight change, fatigue, nausea, vomiting, diarrhea , constipation, abdominal pain, pelvic pain, blood in urine or stool, dysuria, urinary frequency or urgency, lightheadedness, dizziness, headache, memory loss, loss of consciousness, rash, abnormal bruising or bleeding, imbalance, focal weakness, numbness or tingling in arms or legs, generalized arthralgias or myalgias, back or neck pain, or night sweats. The review of systems is otherwise negative other than for that already noted above, and at least 10 systems have been reviewed. Physical Exam Physical Exam: The patient is awake, alert and oriented 3, well developed and well nourished, normocephalic and atraumatic, lying in bed and in no acute distress. HEENT--PERRL, EOMI, mucous membranes and oropharynx dry. Neck--supple. No JVD. No bruits. Thyroid normal, trachea midline, no adenopathy. Heart--normal S1 and S2. No murmurs, rubs or gallops. Lungs--clear bilaterally, no respiratory distress, no accessory muscle use. Abdomen--normal bowel sounds and soft. Nontender. Nondistended, no hernias or masses, no organomegaly. Extremities--1+ bilateral pretibial and pedal pitting edema Dermatologic--normal skin turgor, normal color, no abnormal lymph nodes, no rash. Neurologic--cranial nerves II through XII grossly intact. Rheumatologic--normal range of motion. Psychiatric--normal affect. Results & Data Results & Data Vital Signs (Past 12 Hours) Vital Signs Temp Pulse Resp BP Pulse Ox O2 Del Method 08/22/24 23:06 108 H 28 H 93 08/22/24 23:01 151/124 H 08/22/24 22:54 88 23 93 08/22/24 22:44 154/104 H 08/22/24 22:44 154/104 H 08/22/24 22:36 106 H 21 94 08/22/24 22:33 117 H 21 93 08/22/24 22:24 105 H 18 90 08/22/24 22:06 100 H 23 92 08/22/24 21:58 113 H 08/22/24 21:51 116 H 21 95 08/22/24 21:33 Room Air 08/22/24 21:32 Room Air 08/22/24 21:28 36.4 C L 108 H 18 156/96 H 95 Room Air Laboratory Results Laboratory Results WBC 6.66 K/ul (4.8-10.8) 08/22/24 21:40 RBC 4.44 M/uL (4.20-5.40) 08/22/24 21:40 Hgb 13.7 g/dl (12.0-16.0) 08/22/24 21:40 Hct 43.5 % (37.0-47.0) 08/22/24 21:40 MCV 98.0 fL (80.0-100.0) 08/22/24 21:40 MCH 30.9 pg (25.0-34.0) 08/22/24 21:40 MCHC 31.5 g/dL (32.0-36.0) L 08/22/24 21:40 RDW Std Deviation 54.2 fL (36.4-46.3) H 08/22/24 21:40 RDW Coeff of [place]gil 15.0 % (11.5-14.5) H 08/22/24 21:40 Plt Count 132 K/uL (130-400) 08/22/24 21:40 MPV 10.6 fL (9.4-12.4) 08/22/24 21:40 Immature Gran % (Auto) 0.3 % 08/22/24 21:40 Neut % (Auto) 71.2 % 08/22/24 21:40 Lymph % (Auto) 19.7 % 08/22/24 21:40 [place] % (Auto) 7.8 % 08/22/24 21:40 Eos % (Auto) 0.5 % 08/22/24 21:40 Baso % (Auto) 0.5 % 08/22/24 21:40 Neut # (Auto) 4.75 K/uL (1.40-6.50) 08/22/24 21:40 Lymph # (Auto) 1.31 K/uL (1.20-3.40) 08/22/24 21:40 [place] # (Auto) 0.52 K/uL (0.11-0.59) 08/22/24 21:40 Eos # (Auto) 0.03 K/uL (0.00-0.50) 08/22/24 21:40 Baso # (Auto) 0.03 K/uL (0.00-0.20) 08/22/24 21:40 Immature Gran # (Auto) 0.02 K/uL (0.01-0.20) 08/22/24 21:40 PT 13.6 Seconds (9.0-12.0) H 08/22/24 21:40 INR 1.3 (0.9-1.1) H 08/22/24 21:40 VBG pH 7.37 (7.36-7.41) 08/22/24 21:53 VBG pCO2 54 mmHg (38-50) H 08/22/24 21:53 VBG pO2 30 mmHg 08/22/24 21:53 VBG HCO3 31 mmol/L 08/22/24 21:53 VBG O2 Saturation < 60.0 % 08/22/24 21:53 VBG Base Excess 4.5 mEq/L 08/22/24 21:53 Sodium 142 mmol/L (136-145) 08/22/24 21:40 Potassium 4.0 mmol/L (3.5-5.1) 08/22/24 21:40 Chloride 105 mmol/L (98-107) 08/22/24 21:40 Carbon Dioxide 31 mmol/L (21-32) 08/22/24 21:40 Anion Gap 6 (3-11) 08/22/24 21:40 BUN 20 mg/dl (6-23) 08/22/24 21:40 Creatinine 0.94 mg/dl (0.6-1.2) 08/22/24 21:40 Est Cr Clr Drug Dosing Not Reportable 08/22/24 21:40 eGFR 62.89 08/22/24 21:40 BUN/Creatinine Ratio 21.3 (10-20) H 08/22/24 21:40 Glucose 110 mg/dl (70-99(Fasting)) H 08/22/24 21:40 Calcium 9.7 mg/dl (8.6-10.3) 08/22/24 21:40 Magnesium 1.7 mg/dl (1.7-2.4) 08/22/24 21:40 Total Bilirubin 2.1 mg/dl (0.2-1.0) H 08/22/24 21:40 AST 16 U/L (13-39) 08/22/24 21:40 ALT 12 U/L (7-52) 08/22/24 21:40 Alkaline Phosphatase 98 U/L (34-104) 08/22/24 21:40 Troponin I High Sens 14.0 pg/ml (0-14) 08/22/24 21:40 B-Natriuretic Peptide 893 pg/ml (0-100) H 08/22/24 21:40 Total Protein 7.5 gm/dl (6.0-8.3) 08/22/24 21:40 Albumin 3.9 gm/dl (3.4-5.0) 08/22/24 21:40 Globulin 3.6 gm/dl (2.5-4.0) 08/22/24 21:40 Albumin/Globulin Ratio 1.1 (0.9-2) 08/22/24 21:40 Urine Color Yellow 08/23/24 00:56 Urine Appearance Clear (Clear) 08/23/24 00:56 Urine pH 7.0 (4.5-7.5) 08/23/24 00:56 Ur Specific [place] 1.008 (1.000-1.030) 08/23/24 00:56 Urine Protein Negative (Negative) 08/23/24 00:56 Urine Glucose (UA) Negative (Negative) 08/23/24 00:56 Urine Ketones Negative (Negative) 08/23/24 00:56 Urine Blood Negative (Negative) 08/23/24 00:56 Urine Nitrite Negative (Negative) 08/23/24 00:56 Urine Bilirubin Negative (Negative) 08/23/24 00:56 Urine Urobilinogen Negative (Negative) 08/23/24 00:56 Ur Leukocyte Esterase Negative (Negative) 08/23/24 00:56 Adenovirus (PCR) Not Detected (NotDetected) 08/22/24 21:40 B. pertussis DNA (PCR) Not Detected (NotDetected) 08/22/24 21:40 B.parapertussis DNA PCR Not Detected (NotDetected) 08/22/24 21:40 C. pneumoniae DNA (PCR) Not Detected (NotDetected) 08/22/24 21:40 Coronavirus OC43 (PCR) Not Detected (NotDetected) 08/22/24 21:40 Coronavirus HKU1 (PCR) Not Detected (NotDetected) 08/22/24 21:40 Coronavirus 229E (PCR) Not Detected (NotDetected) 08/22/24 21:40 SARS-CoV-2 (PCR) Not Detected (NotDetected) 08/22/24 21:40 Coronavirus NL63 (PCR) Not Detected (NotDetected) 08/22/24 21:40 Human Metapneumovir PCR Not Detected (NotDetected) 08/22/24 21:40 Influenza Type A (PCR) Not Detected (NotDetected) 08/22/24 21:40 Influenza Type B (PCR) Not Detected (NotDetected) 08/22/24 21:40 M. pneumoniae (PCR) Not Detected (NotDetected) 08/22/24 21:40 Parainfluenza 1 (PCR) Not Detected (NotDetected) 08/22/24 21:40 Parainfluenza 2 (PCR) Not Detected (NotDetected) 08/22/24 21:40 Parainfluenza 3 (PCR) Not Detected (NotDetected) 08/22/24 21:40 Parainfluenza 4 (PCR) Not Detected (NotDetected) 08/22/24 21:40 RSV (PCR) Not Detected (NotDetected) 08/22/24 21:40 Entero/Rhino (PCR) Not Detected (NotDetected) 08/22/24 21:40 Impressions Chest X-Ray 08/22/24 21:33 Exam(s): XR CXR 1 VIEW EXAM: XR Chest, 1 View CLINICAL HISTORY: Reason for exam: Dyspnea. TECHNIQUE: Frontal view of the chest. COMPARISON: No relevant prior studies available. FINDINGS: Lungs: See below. Pleural space: See below. Heart: Cardiomegaly with left pleural effusion and left lower lobe atelectasis. Mediastinum: Unremarkable. Normal mediastinal contour. Bones/joints: Unremarkable. No acute fracture. IMPRESSION: Left lower lobe atelectasis and left pleural effusion. Electronically signed by: Radhames Sanchez MD 08/22/24 22:04 PM Code Status & VTE Plan Code Status Full code VTE Prophylaxis Plan VTE Prophylaxis will be ordered: Yes PG Care Time/CCT Total # of Minutes Spent Total Time Spent with Patient: Total time spent is greater than 50% in coordination of care (as documented) at patient's floor/unit and/or counseling patient: Coding Level of Care Code 30291 INT INP/OBS CARE 3/75MIN Diagnoses Atrial fibrillation with rapid ventricular response I48.91 Hypomagnesemia E83.42 Heart failure with mid-range ejection fraction I50.22 History of heart artery stent Z95.5
[2024-08-23 01:30] LABS: Appearance Urine Clear (Clear); Bilirubin Urine Negative (Negative); Blood Urine Negative (Negative); Color Urine Yellow; Glucose Urine UA Negative (Negative); Ketones Urine Negative (Negative); Leukocyte Esterase Urine Negative (Negative); Nitrite Urine Negative (Negative); Protein Urine Negative (Negative); Specific Gravity Urine 1.008 (1.000-1.030); Urobilinogen Urine Negative (Negative)
[2024-08-23] MEDS ORDERED: ONDANSETRON INJ 2 MG/ML 2 ML VIAL IV PRN (01:53)
[2024-08-23] MEDS ORDERED: ACETAMINOPHEN 325 MG TAB PO PRN (01:53)
[2024-08-23] MEDS: METOPROLOL SUCC 50MG EXT REL TAB PO STA ×2 (02:50→12:42)
[2024-08-23 05:13] LABS: Basophils # (auto) 0.03 K/uL (0.00-0.20); Basophils % (auto) 0.5 %; Eosinophils # (auto) 0.06 K/uL (0.00-0.50); Eosinophils % (auto) 0.9 %; Hematocrit (blood only) 41.6 % (37.0-47.0); Hemoglobin 13.2 g/dl (12.0-16.0); Immature Granulocytes # (auto) 0.01 K/uL (0.01-0.20); Immature Granulocytes % (auto) 0.2 %; Lymphocytes # (auto) 1.38 K/uL (1.20-3.40); Lymphocytes % (auto) 21.7 %; Mean Corpuscular Hemoglobin 30.9 pg (25.0-34.0); Mean Corpuscular Hgb Conc 31.7 g/dL (32.0-36.0); Mean Corpuscular Volume 97.4 fL (80.0-100.0); Mean Platelet Volume 10.8 fL (9.4-12.4); Monocytes # (auto) 0.75 K/uL (0.11-0.59); Monocytes % (auto) 11.8 %; Neutrophils # (auto) 4.13 K/uL (1.40-6.50); Neutrophils % (auto) 64.9 %; Platelet Count 120 K/uL (130-400); RDW Coefficient of Variation 14.9 % (11.5-14.5); RDW Standard Deviation 54.1 fL (36.4-46.3); Red Blood Count 4.27 M/uL (4.20-5.40); White Blood Count 6.36 K/ul (4.8-10.8)
[2024-08-23 05:24] LABS: Albumin Globulin Ratio 1.1 (0.9-2); Albumin Level 3.7 gm/dl (3.4-5.0); BUN Creatinine Ratio 23.4 (10-20); Calcium 9.4 mg/dl (8.6-10.3); Creatinine Clr Calc Pharmacy 65.6 ml/min; Globulin 3.4 gm/dl (2.5-4.0); Magnesium 2.2 mg/dl (1.7-2.4); Potassium 3.5 mmol/L (3.5-5.1); Total Protein 7.1 gm/dl (6.0-8.3)
[2024-08-23 05:31] LABS: Troponin I High Sensitivity 13.1 pg/ml (0-14)
[2024-08-23 06:45] LABS: INR 1.2 (0.9-1.1); Partial Thromboplastin Ratio 0.9; Partial Thromboplastin Time 25 Seconds (21-31); Prothrombin Time 12.4 Seconds (9.0-12.0)
[2024-08-23] MEDS: lisinopril 2.5 MG TAB PO SCH (07:40)
[2024-08-23] MEDS: EZETIMIBE 10 MG TAB PO SCH (07:41)
[2024-08-23] MEDS: ASPIRIN 81 MG ECTAB PO SCH (07:41)
[2024-08-23] MEDS: FAMOTIDINE 10 MG TABLET PO SCH (07:41)
[2024-08-23] MEDS: METOPROLOL SUCC 50MG EXT REL TAB PO SCH (07:41)
[2024-08-23] MEDS: FUROSEMIDE 40 MG/4 ML VIAL IV SCH ×2 (07:41→16:05)
--- NOTE | 2024-08-23 08:25 | Hospitalist Progress Note ---
Date of Service August 23, 2024 Assessment & Plan (1) Atrial fibrillation with rapid ventricular response: (2) Hypomagnesemia: (3) Heart failure with mid-range ejection fraction: (4) History of heart artery stent: Plan #Atrial fibrillation w/ RVR Telemetry overnight 08/23/24: mainly afib with occasional PVCs, rates 90s to low 100s Continue metoprolol succinate ER 100 mg, one-time 50mg dose given around noon 08/23/24, rates mainly 90s- low 100s today, review tele in AM Cardiology consulted, Dr. Mas has seen her previously #HFmrEF exacerbation The patient will be admitted to telemetry for serial cardiac enzymes, serial EKG's, cardiac rhythm monitoring Most recent echocardiogram on 04/02/24 LVEF 40-45%, mild aortic regurgitation and moderate mitral regurgitation 08/23/24 Lasix increased to 40mg [id number] Continue lisinopril 2.5 mg daily Troponin 14 -> 16.8, likely components of mild demand and CHF exacerbation BNP 893 on 08/22/24 #Hypomagnesemia Resolved, 1.7 -> 2.2 AM labs #DVT/PE history- As noted, patient prefers to not be on Xarelto - will discuss further about benefits vs risks - added Lovenox 40mg sq; continue DAPT for now #Chronic medical problems: GERD-Continue famotidine Hyperlipidemia-continue Zetia 10 mg daily Admission and Anticipated Discharge Date Admission Date: August 22, 2024 Supervising Physician Co-Signing Physician Notes I personally examined the patient and verified all wolf points of history and exam, discussed case, and agree with decision making with Dr Yadav feeling better than yesterday. notes that this all started after getting sick with a viral illness. vitals noted nad heent nc at mmm breathing unlabored lungs somewhat diminished, scattered rale but not many acute on chronic diastolic (hfpef) chf present on admission - probably precipitated by RVR, which in turn was probably precipitated by viral illness. control rate, diurese. continue current care otherwise. as above. will need to discuss anticoagulation risk/benefits further Subjective Leann was seen and evaluated at bedside this AM, appearing in no acute distress. Confirms history of Afib with RVR, HFmrEF, CAD with stents, history of DVT and PE not on anticoag due to history of hematuria Endorses recent history of a viral illness with symptoms of worsening fatigue and SOB over 1-2 weeks, especially worsening over the past day prior to ER visit. Notes she feels better than when she came to ER, but she is still having SOB and fatigue when walking short distance from bed to bathroom. States she has been up to use the bathroom several times because of the "water pill", notes her legs are a bit more swollen than usual. Denies recent fever, body aches, chills, sweats, headache, dizziness, nausea/vomiting, abdominal pain, numbness/weakness in extremities. Review of Systems Review of Systems: per HPI Physical Exam Physical Exam: General: A&Ox3, appearing in no acute distress HEENT: EOM intact, PERRL b/l, slightly dry oral mucous membranes CV: irregular rate and rhythm, non-tachycardic, +s1/s2, no m/r/g Resp: mild crackles and coarse breath sounds b/l, mildly decreased breath sounds with L base slightly less audible than R base, no wheeze GI/Abd: +BS, abdomen soft, nontender to palpation Ext: 2+ b/l LE pitting edema, b/l mild calf tenderness to palpation not new, 5/5 strength in all extremities Neuro: no facial droop, speech intact, cranial nerves II - XII grossly intact. Results & Data Results & Data Vital Signs (Past 12 Hours) Vital Signs Temp Pulse Pulse Resp BP BP Pulse Ox 08/23/24 07:48 36.5 C 111 H 18 138/73 90 08/23/24 06:37 08/23/24 05:42 36.4 C L 103 H 20 146/100 H 98 08/23/24 03:44 95 H 16 96 08/23/24 03:44 88 L 08/23/24 02:52 36.5 C 102 H 22 154/100 H 92 08/23/24 01:50 104 H 08/23/24 01:30 101 H 20 92 08/23/24 01:30 149/97 H 08/23/24 01:24 103 H 22 90 08/23/24 01:18 100 H 20 92 08/23/24 01:01 159/96 H 08/23/24 01:01 159/96 H 08/23/24 01:00 08/23/24 00:42 105 H 20 08/23/24 00:12 103 H 22 91 08/23/24 00:03 99 H 24 91 08/23/24 00:00 158/116 H 08/23/24 00:00 158/116 H 08/22/24 23:51 96 H 22 90 08/22/24 23:42 97 H 21 90 08/22/24 23:30 154/120 H 08/22/24 23:30 154/120 H 08/22/24 23:30 154/120 H 08/22/24 23:30 108 H 22 90 08/22/24 23:21 96 H 21 93 08/22/24 23:06 108 H 28 H 93 08/22/24 23:01 151/124 H 08/22/24 22:54 88 23 93 08/22/24 22:44 154/104 H 08/22/24 22:44 154/104 H 08/22/24 22:36 106 H 21 94 08/22/24 22:33 117 H 21 93 08/22/24 22:24 105 H 18 90 08/22/24 22:06 100 H 23 92 08/22/24 21:58 113 H 08/22/24 21:51 116 H 21 95 08/22/24 21:33 08/22/24 21:32 08/22/24 21:28 36.4 C L 108 H 18 156/96 H 95 O2 Del Method O2 Flow Rate 08/23/24 07:48 Room Air 08/23/24 06:37 Room Air 08/23/24 05:42 Nasal Cannula 2 08/23/24 03:44 Room Air 2 08/23/24 03:44 Room Air, Nasal Cannula 0 08/23/24 02:52 Room Air 08/23/24 01:50 08/23/24 01:30 08/23/24 01:30 08/23/24 01:24 08/23/24 01:18 08/23/24 01:01 08/23/24 01:01 08/23/24 01:00 Room Air 08/23/24 00:42 08/23/24 00:12 08/23/24 00:03 08/23/24 00:00 08/23/24 00:00 08/22/24 23:51 08/22/24 23:42 08/22/24 23:30 08/22/24 23:30 08/22/24 23:30 08/22/24 23:30 08/22/24 23:21 08/22/24 23:06 08/22/24 23:01 08/22/24 22:54 08/22/24 22:44 08/22/24 22:44 08/22/24 22:36 08/22/24 22:33 08/22/24 22:24 08/22/24 22:06 08/22/24 21:58 08/22/24 21:51 08/22/24 21:33 Room Air 08/22/24 21:32 Room Air 08/22/24 21:28 Room Air Resident Activity Tracking Resident Involvement: Resident Care Provided Care Provided: Adult Hospital Medicine
[2024-08-23] MEDS ORDERED: POTASSIUM CHLORIDE CRTAB 20 MEQ TABCR PO STA (12:31)
[2024-08-23] MEDS: POTASSIUM CHLORIDE / WTR 10 MEQ/100 ML PLCT IV SCH (12:35)
[2024-08-23] MEDS: POTASSIUM CHLORIDE CRTAB 20 MEQ TABCR PO STA (12:42)
[2024-08-23] MEDS ORDERED: Nursing to Pharmacy Communication SCH (13:00)
[2024-08-23] MEDS: ENOXAPARIN INJ 40 MG/0.4 ML SYR SQ SCH (13:07)
[2024-08-23] MEDS: POTASSIUM CHLORIDE CRTAB 20 MEQ TABCR PO ONE (16:04)
--- NOTE | 2024-08-23 17:39 | Billing Data ---
Date of Service August 23, 2024 Coding Level of Care Code 92322 SUB INP/OBS CARE MIN
--- NOTE | 2024-08-23 20:55 | Cardiology Consultation ---
Date of Consultation August 23, 2024 Assessment & Plan (1) RODRIGUES (dyspnea on exertion): 2. CADPost PCI to LAD, OM2 02/2023. Residual distal RCA disease 3. Persistent atrial fibrillationasymptomatic 4. 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 Moderate mitral regurgitation. 6. History of DVT 7. Hypertension 8. Dyslipidemiastatin intolerance 9. GERD/Dyspepsia 10. Hematuria Acute decompensated heart failure with gradual progressive dyspnea exertion in setting of ~10lb weight gain. Possibly precipitated by viral illness. No ACS. AF permanent and RVR likely secondary to acute HF. Mild improvement in symptoms with initial diuretics. Still dyspneic, NYHA class III symptoms with persistent congestion on exam. Will need additional diuresis. Rate control adequate. Suspect HR will continue to trend down with diuresis. No need for additional cardiac testing currently -- Agree with BID IV Lasix. 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 -- Continue Toprol XL 100mg daily (didn't tolerate higher doses due to fatigue as an outpatient). Previously unable to afford SGLT2i. Recommend trial of spironolactone 12.5 mg daily. Continue current lisinopril. --Feels she can't take anticoagulation. We talked about possible Watchman as an outpatient. --Favor antiplatelet therapy with clopidogrel alone (multivessel stents, dyspepsia). --Continue zetia. Has been statin intolerant. Will follow History of Present Illness Attending Physician: Radhames Khan, DO History of Present Illness Mrs. Chilel is a very pleasant 74-year-old woman seen today in hospital for persistent AF and CHF exacerbation. Well known to me with a history of HFmrEF (last hospitalization 03/2024; EF40- 45%), CAD post PCI with SAMANTHA to LAD 10/2018 and repeat PCI 02/2023, permanent atrial fibrillation, history of VTE, hypertension, moderate mitral regurgitation, GERD/dyspepsia and COPD Presented to [facility] after feeling unwell for approximately 2 weeks. States subjectively felt cold and increasingly fatigued over this time. Family noted progressive dyspnea on exertion where she would have to stop and sit down after walking across her home. No associated chest pain, palpitations. States her weights previously stable around 188lbs but over last week up as much as 10lbs. Has intermittently taken lasix without much improvement. In ED CXR showed LT infiltrate and pleural effusion. ECG AF with rate of 111, occasional PVCs, no ST changes. HsTrop <17, BNP 890. Has received 2 doses IV lasix and PO metoprolol. Feeling mildly improved today. Still tired, short of breath when out of bed or if talking extended time. Prior cardiovascular studies: Echo 03/2024 EF 40-45%. RV more dilated with mild to moderate RV dysfunction. Normal estimated RA/PA. Cardiac cath/PCI 02/2023: Patent mid LAD stent, 98% distal LAD, 70% proximal OM2, 70% earlydistal RCA, 25% ostial/distal LMCA. 2.25 x 15 mm Xience postdilated with 2.5 NC to distal LAD. 2.5 x 18 mm Xience to proximal OM2 Echo 02/2023: EF 45 to 50%, hypokinetic apex. Severe biatrial dilation, mild AI, moderate MR, moderate TR, estimated PA 45 Cardiac cath/PCI 10/14/18: Mid LAD 95%, 30-40% ostial circumflex, OM 20-30% proximal, dominant RCA 30% distal. PCI with 3.5 x 15 Xience Roselia postdilated with 3.75 NC Echo 10/2018: LVEF 55-60%, mild to moderate MR, apical akinesis Allergies Allergy/AdvReac Type Severity Reaction Status Date / Time rivaroxaban AdvReac Mild stomach Verified 07/09/24 10:44 upset Home Medications Medication Instructions Recorded Confirmed Type nitroglycerin 0.4 mg sublingual 0.4 mg sublingual Q5M PRN chest 03/12/23 08/23/24 Rx tablet (Nitrostat) pain #1 btl famotidine 20 mg tablet 10 mg PO BID 09/01/23 08/23/24 History furosemide 20 mg tablet (Lasix) 20 mg PO DAILY PRN weight gain< 04/05/2408/23 Rx 2lbs #30 tabs lisinopril 2.5 mg tablet 2.5 mg PO DAILY #90 tabs 05/17/24 08/23/24 Rx metoprolol succinate 100 mg 100 mg PO DAILY #90 tabs 05/31/24 08/23/24 Rx tablet,extended release 24 hr clopidogrel 75 mg tablet 75 mg PO DAILY 08/23/24 08/23/24 History ezetimibe 10 mg tablet 10 mg PO DAILY 08/23/24 08/23/24 History Patient History Medical History Ischemic cardiomyopathy Chronic deep vein thrombosis (DVT) of left lower extremity Acute coronary syndrome Dyslipidemia Coronary artery disease Atrial fibrillation Mitral regurgitation HTN (hypertension) GERD (gastroesophageal reflux disease) COPD (chronic obstructive pulmonary disease) Surgical History History of heart artery stent History of cardiac cath Stented coronary artery Family History Father Hypertension Social History Smoking Status: Never smoker Second Hand Exposure: No; Do You Dip or Chew Tobacco: No; Hx Alcohol Use: No Hx Substance Use: No Preferred Language: Tamazight Communication Ability: Effective 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 2 out of 6 holosystolic murmur at the apex. JVP elevated Vascular: 2+ radial pulse Abdomen: Soft, nontender Extremities: Well perfused, trace to 1+ edema, chronic venous stasis changes Neuro: Nonfocal Psych: Alert orient x3, normal affect and mood Results & Data Vital Signs (Past 12 Hours) Vital Signs Temp Pulse Resp BP Pulse Ox O2 Del Method 08/23/24 17:00 153/90 H 08/23/24 16:10 97.7 F 92 H 19 139/107 H 90 Room Air 08/23/24 12:13 97.5 F L 93 H 20 143/78 H 91 Room Air PG Care Time/CCT Total # of Minutes Spent Total Time Spent with Patient: Total time spent is greater than 50% in coordination of care (as documented) at patient's floor/unit and/or counseling patient: Coding Level of Care Code 56849 OFFICE CONSULT LVL Diagnoses RODRIGUES (dyspnea on exertion) R06.09
[2024-08-24 02:40] VITALS: TEMP 97.3
[2024-08-24 06:02] LABS: Basophils # (auto) 0.04 K/uL (0.00-0.20); Basophils % (auto) 0.6 %; Eosinophils # (auto) 0.08 K/uL (0.00-0.50); Eosinophils % (auto) 1.3 %; Hematocrit (blood only) 41.1 % (37.0-47.0); Hemoglobin 13.1 g/dl (12.0-16.0); Immature Granulocytes # (auto) 0.01 K/uL (0.01-0.20); Immature Granulocytes % (auto) 0.2 %; Lymphocytes # (auto) 1.41 K/uL (1.20-3.40); Lymphocytes % (auto) 22.7 %; Mean Corpuscular Hemoglobin 30.9 pg (25.0-34.0); Mean Corpuscular Hgb Conc 31.9 g/dL (32.0-36.0); Mean Corpuscular Volume 96.9 fL (80.0-100.0); Mean Platelet Volume 11.1 fL (9.4-12.4); Monocytes # (auto) 0.65 K/uL (0.11-0.59); Monocytes % (auto) 10.5 %; Neutrophils # (auto) 4.01 K/uL (1.40-6.50); Neutrophils % (auto) 64.7 %; Platelet Count 122 K/uL (130-400); RDW Coefficient of Variation 14.8 % (11.5-14.5); RDW Standard Deviation 52.7 fL (36.4-46.3); Red Blood Count 4.24 M/uL (4.20-5.40)
[2024-08-24 06:16] LABS: Albumin Level 3.5 gm/dl (3.4-5.0); BUN Creatinine Ratio 22.1 (10-20); Bilirubin,Total 1.9 mg/dl (0.2-1.0); Calcium 9.1 mg/dl (8.6-10.3); Creatinine Clr Calc Pharmacy 50.6 ml/min; Globulin 3.4 gm/dl (2.5-4.0); Magnesium 1.8 mg/dl (1.7-2.4); Total Protein 6.9 gm/dl (6.0-8.3)
[2024-08-24 06:27] LABS: INR 1.2 (0.9-1.1); Partial Thromboplastin Ratio 0.9; Partial Thromboplastin Time 25 Seconds (21-31); Prothrombin Time 12.9 Seconds (9.0-12.0)
--- NOTE | 2024-08-24 07:15 | Hospitalist Progress Note ---
Date of Service August 24, 2024 Assessment & Plan (1) Atrial fibrillation with rapid ventricular response: (2) Hypomagnesemia: (3) Heart failure with mid-range ejection fraction: (4) History of heart artery stent: Plan #Atrial fibrillation w/ RVR Telemetry overnight 08/23/24: mainly afib with occasional PVCs, rates 90s to low 100s Continue metoprolol succinate ER 100 mg, one-time 50mg dose given around noon 08/23/24, rates mainly 90s- low 100s today, review tele in AM Cardiology consulted, Dr. Mas has seen her previously #HFmrEF exacerbation The patient will be admitted to telemetry for serial cardiac enzymes, serial EKG's, cardiac rhythm monitoring Most recent echocardiogram on 04/02/24 LVEF 40-45%, mild aortic regurgitation and moderate mitral regurgitation 08/23/24 Lasix increased to 40mg BID17 Continue lisinopril 2.5 mg daily Troponin 14 -> 16.8, likely components of mild demand and CHF exacerbation BNP 893 on 08/22/24 #Hypomagnesemia Resolved, 1.7 -> 2.2 AM labs #DVT/PE history- As noted, patient prefers to not be on Xarelto - will discuss further about benefits vs risks - added Lovenox 40mg sq; continue DAPT for now #Chronic medical problems: GERD-Continue famotidine Hyperlipidemia-continue Zetia 10 mg daily Admission and Anticipated Discharge Date Admission Date: August 22, 2024 Subjective [[Leann was seen and evaluated at bedside this AM, appearing in no acute distress. States she has been up to use the bathroom several times because of the "water pill", notes her legs are a bit more swollen than usual. Denies recent fever, body aches, chills, sweats, headache, dizziness, nausea/vomiting, abdominal pain, numbness/weakness in extremities.]] Review of Systems Review of Systems: per HPI Physical Exam Physical Exam: [[General: A&Ox3, appearing in no acute distress HEENT: EOM intact, PERRL b/l, slightly dry oral mucous membranes CV: irregular rate and rhythm, non-tachycardic, +s1/s2, no m/r/g Resp: mild crackles and coarse breath sounds b/l, mildly decreased breath sounds with L base slightly less audible than R base, no wheeze GI/Abd: +BS, abdomen soft, nontender to palpation Ext: 2+ b/l LE pitting edema, b/l mild calf tenderness to palpation not new, 5/5 strength in all extremities Neuro: no facial droop, speech intact, cranial nerves II - XII grossly intact.]] Results & Data Results & Data Vital Signs (Past 12 Hours) Vital Signs Temp Pulse Resp BP Pulse Ox O2 Del Method 08/24/24 02:40 36.3 C L 63 20 134/91 90 Room Air 08/23/24 23:15 36.5 C 97 H 20 132/85 91 Room Air 08/23/24 20:35 36.3 C L 89 18 147/88 H 93 Room Air
[2024-08-24 07:47] VITALS: O2SAT 91
[2024-08-24] MEDS: MAGNESIUM SULFATE / D5W 1 GM/100 ML BAG IV ONE (07:47)
[2024-08-24 15:59] VITALS: BP 134/74; PULSE 79; RESP 20
--- NOTE | 2024-08-24 16:29 | Discharge Summary ---
Date of Service August 24, 2024 Admission HPI Per Admitting Provider The patient is a 74-year-old female with a past medical history including atrial fibrillation, HFmrEF, hematuria, coronary stents, CAD, DVT, PE, CRPS/complex regional pain syndrome type I, and history of gouty arthritis of great toe of right foot.The patient was encouraged to come to the emergency department by family members due to concerns regarding progressive generalized fatigue, shortness of breath, dyspnea on exertion and chest pain. She has been over the past 1 to 2 weeks having recurrent episodes of feeling like she is getting a cold. Over the past 24 hours the symptoms have intensified, along with progressive weakness and feelings of being rundown. She has a history of coronary artery stents, is on Plavix and aspirin, has a history of DVT and PE having refused anticoagulation with Xarelto due to concerns regarding hematuria in the past. She has had persistent and progressive lower extremity swelling, and for all these reasons presents to the ED for assessment. Admission Exam Per Admitting Provider The patient is awake, alert and oriented 3, well developed and well nourished, normocephalic and atraumatic, lying in bed and in no acute distress. HEENT--PERRL, EOMI, mucous membranes and oropharynx dry. Neck--supple. No JVD. No bruits. Thyroid normal, trachea midline, no adenopathy. Heart--normal S1 and S2. No murmurs, rubs or gallops. Lungs--clear bilaterally, no respiratory distress, no accessory muscle use. Abdomen--normal bowel sounds and soft. Nontender. Nondistended, no hernias or masses, no organomegaly. Extremities--1+ bilateral pretibial and pedal pitting edema Dermatologic--normal skin turgor, normal color, no abnormal lymph nodes, no rash. Neurologic--cranial nerves II through XII grossly intact. Rheumatologic--normal range of motion. Psychiatric--normal affect. Principal Diagnosis HFmrEF exacerbation Discharge Exam General: A&Ox3, appearing in no acute distress HEENT: EOM intact, PERRL b/l,moist oral mucous membranes CV: irregular rhythm, non-tachycardic, +s1/s2, no m/r/g Resp: b/l mildly decreased breath sounds with L base slightly less audible than R base, no wheeze GI/Abd: +BS, abdomen soft, nontender to palpation Ext: 1+ b/l LE pitting edema, b/l mild calf tenderness to palpation not new, 5/5 strength in all extremities Neuro: no facial droop, speech intact, cranial nerves II - XII grossly intact Discharge Data Allergies Allergy/AdvReac Type Severity Reaction Status Date / Time rivaroxaban AdvReac Mild stomach Verified 07/09/24 10:44 upset Consultations 08/22/24 22:48 ED Decision to Admit Stat 08/23/24 01:53 Consult Cardiology Routine Hospital Course (1) Atrial fibrillation with rapid ventricular response: (2) Hypomagnesemia: (3) Heart failure with mid-range ejection fraction: (4) History of heart artery stent: Plan #HFmrEF exacerbation Most recent echocardiogram on 04/02/24 LVEF 40-45%, mild aortic regurgitation and moderate mitral regurgitation Going home on Lasix 40mg qAM, will receive BMP early next week for Fri09/01/24 outpatient appointment Continue lisinopril 2.5 mg daily Troponin 14 -> 16.8, likely components of mild demand and CHF exacerbation BNP 893 on 08/22/24 #Atrial fibrillation Telemetry overnight 08/23/24: mainly afib with occasional PVCs, rates 90s to low 100s Continue metoprolol succinate ER 100 mg, one-time 50mg dose given around noon 08/23/24, rates mainly 90s- low 100s today, review tele in AM Cardiology consulted, Dr. Mas has seen her previously To discuss Watchman procedure with Dr. Mas / PCP team if continues not to be on anticoagulation #Hypomagnesemia stable #DVT/PE history- As noted, patient prefers to not be on Xarelto - will discuss further about benefits vs risks - added Lovenox 40mg sq for inpatient; Plavix 75mg daily monotherapy Discuss Watchman procedure with Dr. Mas / PCP team if continues not to be on anticoagulation #Chronic medical problems: GERD-Continue famotidine CAD- continue Plavix 75mg daily Hyperlipidemia-continue Zetia 10 mg daily Total Time Total Time Spent Total Time Spent (In Minutes): <30 Discharge Plan Discharge Items Patient Disposition: Home - Self-Care Reason For Visit: ATRIAL FIB WITH RVR, HFmrEF EXACERBATION Discharge Diagnosis: atrial fibrillation, HFmrER exacerbation Activity: Per Instructions section Non-emergency contact: Primary Care Provider Call non-emergency contact if: your symptoms worsen and your pain is not controlled Follow-up/Referrals: Armando Dee MD [Primary Care Provider] - Jesus Yadav V., [Resident] - Diet: Low Sodium (2gm) Addtl Attending Provider Instructions: You were evaluated and treated for HFmrEF exacerbation, which was likely brought on by viral illness which in turn increased your atrial heart rate to the point where it was not able to pump blood efficiently through the rest of your body. This likely made your atrial fibrillation less effective at pumping blood than usual. This is a reasonable cause for your fatigue, shortness of breath, and increased pitting edema (swelling) in your legs. We have been getting the excess fluid out of your body with Lasix, which was increase from your home regimen of 20mg as needed, to 20mg twice a day. Since you have been clinically improving with now minimal SOB on exertion and improvement of your edema, we feel we can safely discharge you home. We will be keeping you on your home dose of metoprolol succinate 100mg daily, and for now increasing your Lasix regimen to 40mg daily in the morning with your other pills. Depending on your fluid status and symptoms, we will adjust your Lasix as appropriate. Dr. Mas, your electrical installation supervisor, saw you as well and is on board with this plan. He would like to discuss a Watchman procedure as a more permanent treatment for your atrial fibrillation, especially if you will not be on an anticoagulant. Please follow up at the [facility] adjacent to the [facility] for a hospital followup appointment next September 01 at 11:20am (arrive 11:05am) - you will be seen by Dr. Jesus Yadav, the resident physician who saw you during your short hospital stay. Even though you are one of Dr. Dee's patients, Dr. Yadav works with Dr. Dee so he will be fully aware of these visits and any medication changes. Before your appointment on Fri09/01/24 at 11:20am, please go to the clinic or other [facility] lab to have some bloodwork done. We would like to check your creatinine to get a good sense of your hydration status, which can be seen in this lab value. Please have this done on either Wednesday 08/30 or Thursday 08/31 so that we can review this lab at your Friday 09/01 appointment. Thank you for allowing us to participate in your care. Pending Studies at Discharge: No Stand-Alone Forms: [facility], Smoking Cessation Medications and DC Order Prescriptions: New furosemide 40 mg tablet 40 mg PO QAM Qty: 14 0RF Continued lisinopril 2.5 mg tablet 2.5 mg PO DAILY Qty: 90 3RF metoprolol succinate 100 mg tablet extended release 24 hr 100 mg PO DAILY Qty: 90 3RF famotidine 20 mg tablet 10 mg PO BID nitroglycerin [Nitrostat] 0.4 mg Tablet, Sublingual 0.4 mg sublingual Q5M PRN (Reason: chest pain) Qty: 1 0RF Rx Instructions: max 3 doses in 15 minutes. clopidogrel 75 mg tablet 75 mg PO DAILY ezetimibe 10 mg tablet 10 mg PO DAILY Discontinued furosemide [Lasix] 20 mg tablet 20 mg PO DAILY PRN (Reason: weight gain< 2lbs) Qty: 30 0RF Discharge Orders: Discharge Order (Routine); Ordered 08/24/24 Ordered By: Jesus Garay/Other Patient Handouts: Heart Failure Meds, Heart Failure Make Changes Diet, AFib Dc, Heart Failure Dc Admission Data Admit Date/Time: 08/22/24 23:46 Attending Provider: Radhames Khan Admit Provider: Richard Estevez Primary Care Provider: Armando Dee Other Providers: Richard Estevez; Armando Mas Other Interventions: Discharge Summary Assessment (RN) Last Done: 08/24/24 16:39 Supervising Physician Co-Signing Physician Notes I personally examined the patient and verified all wolf points of history and exam, discussed case, and agree with decision making with Dr Yadav Continues to feel better. Feels up to going home. Discussed with cardiology. Input greatly appreciated. vitals noted nad heent nc at mmm breathing unlabored No accessory muscle use good effort. Skin without rashes pallor or icterus. acute on chronic diastolic (hfpef) chf present on admission - probably precipitated by RVR, which in turn was probably precipitated by viral illness. Improving with diuresis. Rate control is now good. Safe/stable for home. Lasix 40 mg daily for now. Outpatient follow-up and labs next week. Resume prior home dosing of metoprolol. Discussed sodium restriction. Otherwise as above. Resident Activity Tracking Resident Involvement: Resident Care Provided Care Provided: Adult [facility] Medicine
--- NOTE | 2024-08-24 17:36 | Billing Data ---
Date of Service August 24, 2024 Coding Level of Care Code 12752 IN/OBS DISCH 30 MIN/LESS
--- NOTE | 2024-08-24 21:08 | Electrocardiogram Report ---
Test Reason : Blood Pressure : */* mmHG Vent. Rate : 111 BPM Atrial Rate : * BPM P-R Int : * ms QRS Dur : 84 ms QT Int : 326 ms P-R-T Axes : * 65 174 degrees QTcB Int : 443 ms Atrial fibrillation with rapid ventricular response with premature ventricular or aberrantly conducte d complexes Nonspecific ST and T wave abnormality Abnormal ECG When compared with ECG of 05-Apr-2024 06:12, Questionable change in QRS axis Premature ventricular complexes are now Present Confirmed by Dwight Hein ([id number]) on 08/24/2024 9:08:25 PM Referred By: REFERRED SELF Confirmed By: Dwight Hein
--- NOTE | 2024-08-24 21:09 | Electrocardiogram Report ---
Test Reason : Blood Pressure : */* mmHG Vent. Rate : 89 BPM Atrial Rate : * BPM P-R Int : * ms QRS Dur : 94 ms QT Int : 386 ms P-R-T Axes : * 6 21 degrees QTcB Int : 469 ms Atrial fibrillation Abnormal ECG When compared with ECG of 22-Aug-2024 21:34, Questionable change in QRS axis Confirmed by Dwight Hein ([id number]) on 08/24/2024 9:09:39 PM Referred By: REFERRED SELF Confirmed By: Dwight Hein
--- NOTE | 2024-08-24 21:10 | Electrocardiogram Report ---
Test Reason : Blood Pressure : */* mmHG Vent. Rate : 92 BPM Atrial Rate : * BPM P-R Int : * ms QRS Dur : 96 ms QT Int : 398 ms P-R-T Axes : * -2 2 degrees QTcB Int : 492 ms Atrial fibrillation with premature ventricular or aberrantly conducted complexes Prolonged QT Abnormal ECG When compared with ECG of 24-Aug-2024 06:34, No significant change was found Confirmed by Dwight Hein ([id number]) on 08/24/2024 9:10:31 PM Referred By: REFERRED SELF Confirmed By: Dwight Hein
== END 2024-08-24 17:04 | disposition home or self-care (01) | DRG 291 ==
LOC: ED 21:27 → EDINP 23:46 → SUATTDRO 23:46 → 4W 08-23 01:52